=== PATIENT | female | born 1950 | race Caucasian/White ===

== ENCOUNTER 2019-10-12 12:32 | Outpatient (RCR) | payer OTHER, SELFPAY | END 2020-01-04 12:33 | disposition home or self-care (01) | LOC: CHSSENLIFE 12:32 | PROVIDERS: PCP Internal Medicine; Visit Provider Psychiatry & Neurology Psychiatry | DX: F41.9 Anxiety disorder, unspecified (principal); F01.50 Vascular dementia, unspecified severity, without behavioral disturbance, psychotic disturbance, mood disturbance, and anxiety | CPT/HCPCS: 90832; 90834; 99213; 99214; G0463 ==

== ENCOUNTER 2021-06-12 08:51 | Outpatient (CLI) | payer MEDICARE, SELFPAY ==
--- NOTE | ~2021-06-12 | MMUS_ITS ---
EXAMINATION: MM diagnostic mel BI w dalton, US breast LT limited, US breast RT complete HISTORY: Probable breast abnormalities. TECHNIQUE: Additional 3-D tomosynthesis images of the breasts were performed and synthetic 2-D images were generated. CAD analysis was submitted and interpreted. High resolution bilateral breast ultraso und was performed. COMPARISON: Comparison to multiple prior studies sequentially, with oldest reviewed study dated 08/22. BREAST PARENCHYMAL COMPOSITION: Breast composed of scattered areas of fibroglandular density. FINDINGS: MAMMOGRAPHIC FINDINGS: There are developing nodular asymmetries in the periareolar aspect of both breasts. There are no susp icious calcifications. No discrete abnormality is identified in the area palpable concern in the left breast. ULTRASOUND: Right breast ultrasound: At 12:00, 6 cm from the nipple, there is a slightly irregular shaped [address] This may represent a cluster of microcysts. No internal vascularity. There is posterior acoustic enhancement. At 10:00, 5 cm from the nipple, there is a 2 mm cyst. At 11:00, 4 cm from the nipple, th ere is a heterogeneous hypoechoic area with associated prominent ducts. No discrete mass identified. There is mixed posterior attenuation. This likely represents normal anatomic variant. Left breast ultrasound : At 12:00, 4 cm from the nipple in the area of palpable concern there is a 4 mm complicated cyst. In the periareolar location at 8:00 there is a 3 mm intramammary lymph node. No sonographic evidence for malignancy in the left breast. IMPRESSION: 1. Probable benign findings of the right breast. No mammographic or sonographic evidence for malignan cy in the left breast. 2. Recommend 6 month follow-up diagnostic right mammogram and ultrasound BI-RADS category 3, probably benign findings. Reviewed, dictated and finalized at location A. IMPRESSION: 1. Probable benign findings of the right breast. No mammographic or sonographic evidence for malignancy in the left breast. 2. Recommend 6 month follow-up diagnostic right mammogram and ultrasound BI-RADS category 3, probably benign findings. IMPRESSION: 1. Probable benign findings of the right breast. No mammographic or sonographic evidence for malignancy in the left breast. 2. Recommend 6 month follow-up diagnostic right mammogram and ultrasound BI-RADS category 3, probably benign findings.
== END 2021-06-12 08:52 | disposition home or self-care (01) ==
LOC: CHSIMG 08:58
PROVIDERS: PCP Internal Medicine; Visit Provider Nurse Practitioner Family
DX: N63.11 Unspecified lump in the right breast, upper outer quadrant (principal); N63.24 Unspecified lump in the left breast, lower inner quadrant; N63.25 Unspecified lump in the left breast, overlapping quadrants; N63.15 Unspecified lump in the right breast, overlapping quadrants
CPT/HCPCS: 76641; 76642; 77062; 77066; G0279

== ENCOUNTER 2022-03-04 13:38 | Outpatient (CLI) | payer MEDICARE, SELFPAY ==
--- NOTE | ~2022-03-04 | XR_ITS ---
EXAM: XR lumbar spine 2-3V HISTORY: LOW BACK PAIN after fall 2 days ago COMPARISON: 04/16/2017 FINDINGS: 5 nonrib-bearing lumbar-type vertebral bodies. Pedicles are intact. Multilevel disc space narrowing and marginal osteophytosis. Multilevel facet hypertrophy. Abdominal aortic calcification wi thout aneurysm. Cholecystectomy clips. Multiple phleboliths. Vertebral body heights are maintained. IMPRESSION: Multilevel lumbar degenerative disc disease. Multilevel lumbar facet arthropathy. Reviewed, dictated and finalized at location K. IMPRESSION: Multilevel lumbar degenerative disc disease. Multilevel lumbar facet arthropath y.
--- NOTE | ~2022-03-04 | XR_ITS ---
EXAM: XR sacrum coccyx min 2V HISTORY: LOW BACK PAIN COMPARISON: None available FINDINGS: Moderate lower lumbar degenerative changes. Minimal sclerosis and osteophytosis in the josafat ateral SI joints. Mild bilateral superior hip joint space narrowing. Degenerative change at the pubic symphysis. No fracture or dislocation. Multiple pelvic phleboliths. Likely calcified diverticuli. IMPRESSION: Mild bilateral SI joint osteoarthritis. Reviewed, dictated and finalized at location K.
== END 2022-03-04 13:39 | disposition home or self-care (01) ==
LOC: CHSIMG 13:41
PROVIDERS: PCP Internal Medicine; Visit Provider Internal Medicine
DX: M54.50 Low back pain, unspecified (principal)
CPT/HCPCS: 72100; 72220

== ENCOUNTER 2022-03-26 08:51 | Outpatient (CLI) | payer MEDICARE, SELFPAY ==
--- NOTE | ~2022-03-26 | MMUS_ITS ---
EXAMINATION: MM diagnostic mel RT w dalton, US breast RT limited HISTORY: Six-month follow-up of probable right breast benign findings reported on 06/12/2021 diagnosti c mammography and right complete breast ultrasound examination TECHNIQUE: ML, MLO and CC 3-D tomosynthesis images of the right breast were performed and synthetic 2 -D images were generated. CAD analysis was submitted and interpreted. High resolution limited right b reast ultrasound including upper outer and lower-outer quadrants was performed. COMPARISON: 06/12/2021 bilateral diagnostic mammography and complete right breast ultrasound BREAST PARENCHYMAL COMPOSITION: There are scattered areas of fibroglandular density. FINDINGS: MAMMOGRAPHIC FINDINGS: No suspicious mass or architectural distortion, malignant calcification, skin thickening or retractio n is evident. ULTRASOUND: No suspicious mass or shadowing or other significant abnormality is detected. IMPRESSION: 1. No mammographic evidence of malignancy 2. Routine annual mammographic screening is recommended BI-RADS Category 1: Negative Reviewed, dictated and finalized at location A. IMPRESSION: 1. No mammographic evidence of malignancy 2. Routine annual mammographic screening is recommended BI-RADS Category 1: Negative
== END 2022-03-26 08:52 | disposition home or self-care (01) ==
LOC: CHSIMG 08:52
PROVIDERS: PCP Internal Medicine; Visit Provider Internal Medicine
DX: R92.8 Other abnormal and inconclusive findings on diagnostic imaging of breast (principal)
CPT/HCPCS: 76642; 77061; 77065; G0279

== ENCOUNTER 2022-07-28 11:07 | Outpatient (CLI) | payer MEDICARE, SELFPAY ==
[2022-07-28 12:13] LABS: Anion Gap 6 mmol/L (8-16); Blood Urea Nitrogen 12 mg/dL (7-18); Calcium 8.9 mg/dL (8.5-10.1); Carbon Dioxide 29 mmol/L (21-32); Chloride 96 mmol/L (98-108); Creatine Kinase 51 U/L (26-192); Estimated Glomerular Filt Rate > 60; Free T4 Free Thyroxine 1.16 ng/dL (0.76-1.46); Glucose 216 mg/dL (70-99); NT Pro B Type Natriuretic Pept 87 pg/mL (0-125); Osmolality Calculated 278 mOsm/kg (285-295); Potassium 4.2 mmol/L (3.5-5.1); Sodium 131 mmol/L (136-145); Thyroid Stimulating Hormone 1.56 uIU/mL (0.36-3.74); Troponin I 8.5 ng/L (0.00-60.4)
== END 2022-07-28 11:08 | disposition home or self-care (01) ==
LOC: CHSLAB 11:10
PROVIDERS: PCP Internal Medicine; Visit Provider Internal Medicine
DX: R01.1 Cardiac murmur, unspecified (principal); I10 Essential (primary) hypertension; I50.20 Unspecified systolic (congestive) heart failure
CPT/HCPCS: 36415; 80048; 82550; 82553; 83880; 84439; 84443; 84484

== ENCOUNTER 2022-10-26 10:04 | Outpatient (CLI) | payer MEDICARE, SELFPAY ==
--- NOTE | ~2022-10-26 | XR_ITS ---
EXAMINATION: XR hand RT min 3V, XR wrist RT min 3V DATE: 10/26/2022 10:23 INDICATION: Right hand and wrist pain, bruising and stiffness TECHNIQUE: 1. Posteroanterior, ulnar deviation, oblique, and lateral views of the right wrist were obtained. 2. Dorsal palmar, oblique and lateral views of the right hand were obtained. COMPARISON: None. FINDINGS: Diffuse osteopenia. Alignment of the right hand and wrist are normal. No fracture identified. 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 Polyarticular osteoarthritis, superior at the second and fifth proxim al interphalangeal joints, moderate severity at the remaining interphalangeal joints and first carpal metacarpal joint and mild at majority the remaining joints in the right hand and wrist. No erosions to suggest inflammatory arthritis. Mild soft tissue swelling about the right hand and wrist. IMPRESSION: 1. No acute osseous abnormality at the right hand or wrist. 2. Polyarticular osteoarthritis at the right hand and wrist, moderate to severe at the interphalangea l joints. Reviewed, dictated and finalized at location A. HAND IMPRESSION: 1. No acute osseous abnormality at the right hand or wrist. 2. Polyarticular osteoarthritis at the right hand and wrist, moderate to severe at the interphalangeal joints.
== END 2022-10-26 10:05 | disposition home or self-care (01) ==
LOC: CHSIMG 10:06
PROVIDERS: PCP Internal Medicine; Visit Provider Internal Medicine
DX: M25.531 Pain in right wrist (principal)
CPT/HCPCS: 73110; 73130

== ENCOUNTER 2025-02-02 04:40 | Emergency (ER) | payer MEDICARE, SELFPAY ==
[2025-02-02] VITALS (46 sets, daily range): BP systolic 102–144; BP diastolic 58–86; PULSE 98–120; RESP 17–31; TEMP 36.6; O2SAT 87–97
--- NOTE | ~2025-02-02 | XR_ITS ---
Portable chest x-ray Comparison: 05/08/2019 Clinical History: Dyspnea Findings: There is extensive hazy bibasilar and perihilar airspace disease. No definite pleural effu vale. Cardiomediastinal silhouette is stable. Bones and soft tissues are unremarkable. Impression: Mild to moderate bibasilar pulmonary edema pattern. Reviewed, dictated and finalized at [facility]. Impression: Mild to moderate bibasilar pulmonary edema pattern.
--- OUTSIDE RECORDS SUMMARY | 2025-02-02 04:41 | XMS_ITS | Clinical Summary ---
Author Organization [facility] Address [address] [place] [address] Care Team Providers Care Lawyer Name Role Phone Nona Núñez MD Primary Care Provider [phone] Seth Frances MD Unavailable Unavailabl e Allergies Active Allergy Reactions Criticality Noted Date Comments Protective Adhesive Powder Unknown 06/15/2016 Ampicillin Hives,Rash Low 07/24/2016 Meperidine Unknown 06/15/2016 Bugs climbing on her Diazepam Diarrhea,Nausea Only,Vomiting 07/24/2016 Penicillins Unknown 06/15/2016 Tape Unknown 07/24/2016 Medications atorvastatin 80 MG tablet Take 80 mg by mouth daily. Active metFORMIN 500 MG tablet Take 1,000 mg by mouth 2 (two) times daily with meals. Active lorazepam 1 MG tablet Take 1 mg by mouth nightly at bedtime. Active glipiZIDE 10 MG tablet Take 10 mg by mouth 2 (two) times daily before meals. Active lisinopril 40 MG tablet Take 40 mg by mouth daily. Active pantoprazole 40 MG tablet Take 40 mg by mouth daily. Active escitalopram 10 MG tablet Take 5 mg by mouth daily. Active duloxetine (CYMBALTA) 30 MG capsule Active Cholecalciferol (VITAMIN D3) 1000 UNIT Tab Active gabapentin 300 MG capsule 3 times daily. Active atorvastatin (LIPITOR) 40 MG tablet Active aspirin EC (ASPIRIN) 81 MG EC tablet Active topiramate (TOPAMAX) 50 MG Tab 2 times daily. Active ropinirole 1 MG tablet Active traMADol 50 MG tablet 2 times daily. Active Magnesium Gluconate 500 MG Tab Take 500 mg by mouth 3 (three) times daily. 240 tablet 3 09/10/2016 Active nebivolol 5 MG tablet Take 1 tablet (5 mg total) by mouth daily. 30 tablet 12 10/23/2016 Active Active Problems Problem Noted Date Diagnosed Date Chest pain, atypical 08/22/2016 Dyspnea, unspecified type 08/22/2016 Abnormal EKG 08/22/2016 Pain in joint 07/24/2016 Clinical depression 07/24/2016 Headache 07/24/2016 Common migraine with intractable migraine 2015 Muscle pain 07/24/2016 Head revolving around 07/24/2016 Fibromyalgia 09/26/2015 Arthritis Family History Medical History Relation Comments Open Heart Brother Open Heart Father Open Heart Sister Relation Status Comments Brother Father Sister Social History Tobacco Use Types Packs/Day Years Used Date Smoking Tobacco: Never Alcohol Use Standard Drinks/Week Comments No 0 (1 standard drink = 0.6 oz pur e alcohol) Comments Unknown Sex and Gender Information Value Date Recorded Sex Assigned at Not on file Legal Sex Female 9:27 AM CDT Gender Identity Not on file Sexual Orientation Not on file Last Filed Vital Signs Vital Sign Reading Time Taken Comments Blood Pressure 160/100 07/24/2016 11:08 AM CDT Pulse 88 07/24/2016 11:08 AM CDT Temperature - - Respiratory Rate 18 07/24/2016 11:08 AM CDT Oxygen Saturation 96% 07/24/2016 11:08 AM CDT Inhaled Oxygen Concentration - - Weight 93 kg (205 lb) 07/24/2016 11:08 AM CDT Height 167.6 cm (5' 6 ) 07/24/2016 11:08 AM CDT Body Mass Index 33.09 07/24/2016 11:08 AM CDT Plan of Treatment Health Maintenance Due Date Last Done Comments Colorectal Cancer Screening Colonoscopy (10 Years) 1950 Hepatitis C 1967 DTaP, Tdap and Td Vaccines ( 1 - Tdap) 1968 Zoster Vaccines (1 of 2) 1999 Annual Medicare Wellness Visit 2014 Dexa Scan (General) 2014 Pneumococcal Vaccine: 65+ Ye ars (1 of 1 - PCV) 2014 RSV Immunization or 60+ Years (1 - 1-dose 75+ series) 2024 COVID-19 Vaccine ( - 2023-2 5 season) 2024 Influenza Adult (#1) 2024 Meningococcal B Vaccine Aged Out No l onger eligible based on patient's age to complete this topic Meningococcal Vaccine Aged Out No van jean eligible based on patient's age to complete this topic RSV Immunizations Under 20 Months Aged Out No longer eligible based on patient's age to complete this topic Insurance [employer] Care Teams Lawyer Relationship Specialty Start Date End Date Nona Núñez MD [address] [place] [address] PCP - General INTERNAL MEDICINE 07/23/16 Seth Frances MD [address] [place] [address] CARDIOVASCULAR DISEASE 07/23/16
--- OUTSIDE RECORDS SUMMARY | 2025-02-02 04:41 | XMS_ITS | Encounter Summary ---
Author Organization [facility] Address Formerly [facility] [place] [address] Care Team Providers Care Pilling Machine Operator Name Role Phone Nona Núñez MD Primary Care Provider [phone] Seth Frances MD Unavailable Unavailabl e Encounter Details Date Type Department Care Team (Late st Contact Info) Description 06/15/2016 Abstract [facility] [address] [place] [id number] Abstract, Doc [facility] Social History Tobacco Use Types Packs/Day Years Used Date Smoking Tobacco: Never Comments Unknown Sex and Gender Information Value Date Recorded Sex Assigned at Not on file Legal Sex Female 9:27 AM CDT Gender Identity Not on file Sexual Orientation Not on file documented as of this encounter Plan of Treatment Not on file documented as of this encounter Visit Diagnoses Not on filedocumented in this encounter Care Teams Pilling Machine Operator Relationship Specialty Start Date End Date Nona Núñez MD [address] [place] [address] PCP - General INTERNAL MEDICINE 07/23/16 Seth Frances MD [address] [place] [address] CARDIOVASCULAR DISEASE 07/23/16 documented as of this encounter
--- NOTE | 2025-02-02 04:59 | ECG_ITS ---
Test Date: 2025-02-02 05:24:01 Measurements Intervals [place] Rate: 114 P: 249 WV: 131 QRS: -25 QRSD: 149 T: 76 QT: 385 QTc: 532 Interpretive Statements SINUS TACHYCARDIA WITH FIRST DEGREE AV BLOCK LEFT BUNDLE BRANCH BLOCK [120+ ms QRS DURATION, 80+ ms Q/S IN V1/V2, 85+ ms R IN I/aVL/V5/V6] No previous ECG available for comparison Electronically Signed On 02-02-2025 16:29:55 CDT by Siddharth Fall M.D.
[2025-02-02] MEDS: LEVALBUTEROL NEB 1.25 MG/3 ML 2.5 MG INHALATION (05:08)
--- NOTE | 2025-02-02 05:11 | ED.SOB ---
HPI - SOB/Dyspnea General Chief Complaint: Shortness of Breath/Dyspnea <Robert Mart MD - Last Filed: 02/02/25 05:14> Stated Complaint: DYSPNEA <Robert Mart MD - Last Filed: 02/02/25 05:14> Time Seen by Provider: 02/02/25 04:53 <Robert Mart MD - Last Filed: 02/02/25 05:14> Source: patient, family and EMS <Robert Mart MD - Last Filed: 02/02/25 05:14> Mode of arrival: EMS <Robert Mart MD - Last Filed: 02/02/25 05:14> Limitations: physical limitation <Robert Mart MD - Last Filed: 02/02/25 05:14> History of Present Illness HPI Narrative: this is 74-year-old female with a history of diabetes hypertension hyperlipidemia presents via EMS with shortness of breath cough congestion started yesterday but had gotten worse over the last couple of hours. Patient was given breathing treatment by EMS EN route to the emergency department had O2 saturations in the upper 80s. Currently there is no fever chills no nausea vomiting no abdominal pain or chest pain no flank pain or dysuria. <Robert Mart MD - Last Filed: 02/02/25 05:14> MD elicited complaint: shortness of breath and cough <Robert Mart MD - Last Filed: 02/02/25 05:14> Onset (ago): day(s) <Robert Mart MD - Last Filed: 02/02/25 05:14> Timing: constant <Robert Mart MD - Last Filed: 02/02/25 05:14> Severity: moderate <Robert Mart MD - Last Filed: 02/02/25 05:14> Exacerbating factors: coughing and stress <Robert Mart MD - Last Filed: 02/02/25 05:14> Relieving factors: oxygen and bronchodilators <Robert Mart MD - Last Filed: 02/02/25 05:14> Related Data Home Medications: Home Medications ?Medication ?Instructions ?Recorded ?Confirmed ?Last Taken ?Type blood sugar diagnostic (Accu-Chek #10 ea 10/05/19 Unknown History Guide test strips) blood-glucose meter (Accu-Chek #1 ea 10/05/19 Unknown History Guide Me Glucose Meter) lancets (Accu-Chek Softclix #50 ea 10/05/19 Unknown History Lancets) metformin 500 mg tablet 500 mg PO BID 10/05/19 02/02/25 Unknown History amlodipine 10 mg tablet 10 mg PO DAILY 02/02/25 02/02/25 Unknown History atorvastatin 40 mg tablet 40 mg PO QPM 02/02/25 02/02/25 Unknown History buspirone 10 mg tablet 10 mg PO BID 02/02/25 02/02/25 Unknown History escitalopram oxalate 10 mg tablet 10 mg PO DAILY 02/02/25 02/02/25 Unknown History glimepiride 1 mg tablet 1 mg PO DAILY 02/02/25 02/02/25 Unknown History lisinopril 20 mg tablet 20 mg PO DAILY 02/02/25 02/02/25 Unknown History memantine 5 mg tablet 5 mg PO BID 02/02/25 02/02/25 Unknown History sodium chloride 1,000 mg soluble 1,000 mg PO DAILY 02/02/25 02/02/25 Unknown History tablet <Robert Mart MD - Last Filed: 02/02/25 05:14> Allergies/Adverse Reactions: Allergies Allergy/AdvReac Type Severity Reaction Status Date / Time adhesive tape Allergy Unknown BLISTERS Verified 02/02/25 06:32 ampicillin Allergy Unknown rash Verified 02/02/25 06:32 diazepam Allergy Unknown rash Verified 02/02/25 06:32 meperidine Allergy Unknown GI upset Verified 02/02/25 06:32 Penicillins Allergy Unknown rash Verified 02/02/25 06:32 Contrast Media Allergy Unknown unknown Uncoded 02/02/25 06:32 <Robert Mart MD - Last Filed: 02/02/25 05:14> Review of Systems Review of Systems: All systems reviewed & are unremarkable except as noted in HPI and below <Robert Mart MD - Last Filed: 02/02/25 05:14> PMFSH Past Medical History Medical History: Medical History (Updated 02/02/25 @ 10:44 by Brian Cedillo MD) High cholesterol HTN (hypertension) History of seizure only one time Depression Diabetes Injury of toenail Third degree hemorrhoids <Robert Mart MD - Last Filed: 02/02/25 05:14> Surgical History Surgical History: Surgical History Hx of cholecystectomy History of knee joint replacement H/O neck surgery H/O rotator cuff surgery History of carpal tunnel surgery History of hysterectomy <Robert Mart MD - Last Filed: 02/02/25 05:14> Family History Family History: Family History Sibling Hypertension Family history of elevated blood lipids Family history of cardiovascular disease Father Family history of cardiovascular disease Mother Family history of Alzheimer's disease Other Cerebrovascular accident Diabetes mellitus Family history of kidney disease Family history of malignant neoplasm <Robert Mart MD - Last Filed: 02/02/25 05:14> Social History Social History: Social History Smoking status: Never smoker Alcohol intake: never <Robert Mart MD - Last Filed: 02/02/25 05:14> Exam Const: General: healthy appearing and no acute distress <Robert Mart MD - Last Filed: 02/02/25 05:14> Nutritional Appearance: well nourished <Robert Mart MD - Last Filed: 02/02/25 05:14> Orientation/consciousness: patient oriented x3 <Robert Mart MD - Last Filed: 02/02/25 05:14> Limitations: physical limitations <Robert Mart MD - Last Filed: 02/02/25 05:14> Neck: Neck: normal visual inspection, no lymphadenopathy and no meningeal signs <Robert Mart MD - Last Filed: 02/02/25 05:14> Chest: Chest palpation & inspection: normal inspection of the chest <Robert Mart MD - Last Filed: 02/02/25 05:14> Resp: Effort & Inspection: normal respiratory effort <Robert Mart MD - Last Filed: 02/02/25 05:14> Auscultation: rhonchi <Robert Mart MD - Last Filed: 02/02/25 05:14> Cardio: Rate: regular rate <Robert Mart MD - Last Filed: 02/02/25 05:14> Rhythm: regular rhythm <Robert Mart MD - Last Filed: 02/02/25 05:14> GI: GI Palp: Yes Soft to palpation <Robert Mart MD - Last Filed: 02/02/25 05:14> Auscultation: normal bowel sounds <Robert Mart MD - Last Filed: 02/02/25 05:14> : General: Yes bladder normal to palpation <Robert Mart MD - Last Filed: 02/02/25 05:14> Skin: General skin exam: normal color <Robert Mart MD - Last Filed: 02/02/25 05:14> Rashes: no rashes <Robert Mart MD - Last Filed: 02/02/25 05:14> Neuro: General: patient oriented x3, moves all extremities, no meningeal signs and no focal motor deficits <Robert Mart MD - Last Filed: 02/02/25 05:14> Course Course Emergency Course: Patient received breathing treatments EN route via EMS, O2 sats at 93% on 4L of oxygen, additional Xopenex neb treatment given. <Robert Mart MD - Last Filed: 02/02/25 05:14> Patient received breathing treatments EN route via EMS, O2 sats at 93% on 4L of oxygen, additional Xopenex neb treatment given. 07:00 (MD Mamadou) - This patient was signed out to me by previous ED physician, Dr. Mart with plan for repeat troponin and anticipated transfer. 09:30 - Repeat troponin increased from 54-98.9. The patient denies chest pain. 10:20 - I discussed the patient with [facility] hospitalist, Dr. Matos who accepts transfer. The patient is agreeable to the plan. 10:43 - I discussed the patient with Cardiology [employer] Kaitlyn who agrees to consult. <Brian Cedillo MD - Last Filed: 02/02/25 11:36> Vital Signs Vital signs: Vital Signs Temperature 97.8 F 02/02/25 04:45 Pulse Rate 109 H 02/02/25 04:45 Respiratory Rate 30 H 02/02/25 04:45 Blood Pressure 130/65 02/02/25 04:45 Pulse Oximetry 87 L 02/02/25 04:45 Oxygen Delivery Room Air 02/02/25 04:45 Oxygen Flow Rate 4 02/02/25 04:45 Temperature 97.8 F 02/02/25 04:45 Pulse Rate 109 H 02/02/25 11:01 Respiratory Rate 27 H 02/02/25 11:01 Blood Pressure 144/86 H 02/02/25 11:00 Pulse Oximetry 95 02/02/25 11:01 Oxygen Delivery Nasal Cannula 02/02/25 11:00 Oxygen Flow Rate 3 02/02/25 11:00 <Robert Mart MD - Last Filed: 02/02/25 05:14> Vital Signs Temperature 97.8 F 02/02/25 04:45 Pulse Rate 109 H 02/02/25 04:45 Respiratory Rate 30 H 02/02/25 04:45 Blood Pressure 130/65 02/02/25 04:45 Pulse Oximetry 87 L 02/02/25 04:45 Oxygen Delivery Room Air 02/02/25 04:45 Oxygen Flow Rate 4 02/02/25 04:45 Temperature 97.8 F 02/02/25 04:45 Pulse Rate 109 H 02/02/25 11:01 Respiratory Rate 27 H 02/02/25 11:01 Blood Pressure 144/86 H 02/02/25 11:00 Pulse Oximetry 95 02/02/25 11:01 Oxygen Delivery Nasal Cannula 02/02/25 11:00 Oxygen Flow Rate 3 02/02/25 11:00 <Brian Cedillo MD - Last Filed: 02/02/25 11:36> MDM - SOB/Dyspnea Lab Data Result diagrams: 02/02/25 05:30 02/02/25 05:30 <Robert Mart MD - Last Filed: 02/02/25 05:14> Labs: Lab Results 02/02/25 02/02/25 02/02/25 Range/Units 04:55 05:30 06:45 WBC 16.0 H (4.8-10.8) K/mm3 RBC 4.42 (4.20-5.40) M/mm3 Hgb 12.3 (11.7-13.8) g/dL Hct 37.6 (35.0-42.0) % MCV 85.1 (78.0-102.0) fL MCH 27.8 (27.0-31.0) pg MCHC 32.7 (32-36) g/dL RDW 13.7 (11.6-14.4) % Plt Count 341 (150-420) K/mm3 MPV 9.7 (9.2-11.8) fl Immature Gran % (Auto) 0.4 H (0.0-0.0) % Neut % (Auto) 90.0 H (50.0-70.0) % Lymph % (Auto) 5.6 L (18.0-42.0) % Cannon % (Auto) 2.9 (2.0-11.0) % Eos % (Auto) 0.5 L (1.0-6.0) % Baso % (Auto) 0.6 (0.0-1.0) % Lymph # (Auto) 0.89 L (1.10-4.50) K/mm3 Cannon # (Auto) 0.47 (0.10-0.90) K/mm3 Eos # (Auto) 0.08 (0.02-0.50) K/mm3 Baso # (Auto) 0.09 (0.00-0.10) K/mm3 Abs Immat Gran (auto) 0.06 H (0.00-0.00) K/mm3 Absolute Neuts (auto) 14.40 H (1.70-7.20) K/mm3 Absolute Nucleated RBC 0.00 (0.00-0.00) K/mm3 Nucleated RBC % 0.0 (0-0.0) % PT 9.9 (9.50-12.1) Seconds INR 0.9 APTT 23.6 L (23.9-30.70) Sec D-Dimer 1.93 H* (0.19-0.50) mg/L Sodium 128 L (136-145) mmol/L Potassium 3.9 (3.5-5.1) mmol/L Chloride 91 L (98-108) mmol/L Carbon Dioxide 23 (21-32) mmol/L Anion Gap 14 H (4-12) mmol/L BUN 11 (7-18) mg/dL Creatinine 0.82 (0.55-1.02) mg/dL Estim Creat Clear Calc 48 ml/min Estimated GFR > 60 (59 - ) Glucose 235 H (70-99) mg/dL Calculated Osmolality 273 L (285-295) mOsm/kg Lactic Acid 1.3 (0.4-2.0) mmol/L Calcium 8.7 (8.5-10.1) mg/dL Magnesium 1.7 L (1.8-2.4) mg/dL Total Bilirubin 0.6 (0.00-1.00) mg/dL AST 14 L (15-37) U/L ALT 14 (14-59) U/L Alkaline Phosphatase 133 H (46-116) U/L Troponin I 53.4 (0.00-60.4) ng/L NT-Pro-B Natriuret Pep 5009 H (0-450) pg/mL Total Protein 6.7 (6.4-8.2) g/dL Albumin 3.7 (3.4-5.0) g/dL Urine Color Light yellow (Yellow) Urine Appearance Clear (Clear) Urine pH 5.5 (5.0-8.0) Ur Specific [place] 1.025 H (1.010-1.020) Urine Protein 1+ H (Negative) Urine Glucose (UA) Trace H (Negative) Urine Ketones 1+ H (Negative) Ur Blood (Man) Negative (Negative) Urine Nitrate Negative (Negative) Urine Bilirubin Negative (Negative) Urine Urobilinogen 0.2 (0.2-1.0) mg/dL Leukocyte Esterase Rfl Negative (Negative) PADMINI/UL Urine RBC None seen (0-2) /hpf Urine WBC None seen (0-3) /hpf Ur Squamous Epith Cells Few (Few) /hpf Urine Bacteria Trace (None) /hpf Influenza A (RT-PCR) Negative (Negative) Influenza B (RT-PCR) Negative (Negative) RSV (RT-PCR) Negative (Negative) SARS-CoV-2 RNA (RT-PCR) Negative (Negative) 02/02/25 Range/Units 08:51 WBC (4.8-10.8) K/mm3 RBC (4.20-5.40) M/mm3 Hgb (11.7-13.8) g/dL Hct (35.0-42.0) % MCV (78.0-102.0) fL MCH (27.0-31.0) pg MCHC (32-36) g/dL RDW (11.6-14.4) % Plt Count (150-420) K/mm3 MPV (9.2-11.8) fl Immature Gran % (Auto) (0.0-0.0) % Neut % (Auto) (50.0-70.0) % Lymph % (Auto) (18.0-42.0) % Cannon % (Auto) (2.0-11.0) % Eos % (Auto) (1.0-6.0) % Baso % (Auto) (0.0-1.0) % Lymph # (Auto) (1.10-4.50) K/mm3 Cannon # (Auto) (0.10-0.90) K/mm3 Eos # (Auto) (0.02-0.50) K/mm3 Baso # (Auto) (0.00-0.10) K/mm3 Abs Immat Gran (auto) (0.00-0.00) K/mm3 Absolute Neuts (auto) (1.70-7.20) K/mm3 Absolute Nucleated RBC (0.00-0.00) K/mm3 Nucleated RBC % (0-0.0) % PT (9.50-12.1) Seconds INR APTT (23.9-30.70) Sec D-Dimer (0.19-0.50) mg/L Sodium (136-145) mmol/L Potassium (3.5-5.1) mmol/L Chloride (98-108) mmol/L Carbon Dioxide (21-32) mmol/L Anion Gap (4-12) mmol/L BUN (7-18) mg/dL Creatinine (0.55-1.02) mg/dL Estim Creat Clear Calc ml/min Estimated GFR (59 - ) Glucose (70-99) mg/dL Calculated Osmolality (285-295) mOsm/kg Lactic Acid (0.4-2.0) mmol/L Calcium (8.5-10.1) mg/dL Magnesium (1.8-2.4) mg/dL Total Bilirubin (0.00-1.00) mg/dL AST (15-37) U/L ALT (14-59) U/L Alkaline Phosphatase (46-116) U/L Troponin I 98.9 H* (0.00-60.4) ng/L NT-Pro-B Natriuret Pep (0-450) pg/mL Total Protein (6.4-8.2) g/dL Albumin (3.4-5.0) g/dL Urine Color (Yellow) Urine Appearance (Clear) Urine pH (5.0-8.0) Ur Specific [place] (1.010-1.020) Urine Protein (Negative) Urine Glucose (UA) (Negative) Urine Ketones (Negative) Ur Blood (Man) (Negative) Urine Nitrate (Negative) Urine Bilirubin (Negative) Urine Urobilinogen (0.2-1.0) mg/dL Leukocyte Esterase Rfl (Negative) PADMINI/UL Urine RBC (0-2) /hpf Urine WBC (0-3) /hpf Ur Squamous Epith Cells (Few) /hpf Urine Bacteria (None) /hpf Influenza A (RT-PCR) (Negative) Influenza B (RT-PCR) (Negative) RSV (RT-PCR) (Negative) SARS-CoV-2 RNA (RT-PCR) (Negative) <Robert Mart MD - Last Filed: 02/02/25 05:14> Lab Results 02/02/25 02/02/25 02/02/25 Range/Units 04:55 05:30 06:45 WBC 16.0 H (4.8-10.8) K/mm3 RBC 4.42 (4.20-5.40) M/mm3 Hgb 12.3 (11.7-13.8) g/dL Hct 37.6 (35.0-42.0) % MCV 85.1 (78.0-102.0) fL MCH 27.8 (27.0-31.0) pg MCHC 32.7 (32-36) g/dL RDW 13.7 (11.6-14.4) % Plt Count 341 (150-420) K/mm3 MPV 9.7 (9.2-11.8) fl Immature Gran % (Auto) 0.4 H (0.0-0.0) % Neut % (Auto) 90.0 H (50.0-70.0) % Lymph % (Auto) 5.6 L (18.0-42.0) % Cannon % (Auto) 2.9 (2.0-11.0) % Eos % (Auto) 0.5 L (1.0-6.0) % Baso % (Auto) 0.6 (0.0-1.0) % Lymph # (Auto) 0.89 L (1.10-4.50) K/mm3 Cannon # (Auto) 0.47 (0.10-0.90) K/mm3 Eos # (Auto) 0.08 (0.02-0.50) K/mm3 Baso # (Auto) 0.09 (0.00-0.10) K/mm3 Abs Immat Gran (auto) 0.06 H (0.00-0.00) K/mm3 Absolute Neuts (auto) 14.40 H (1.70-7.20) K/mm3 Absolute Nucleated RBC 0.00 (0.00-0.00) K/mm3 Nucleated RBC % 0.0 (0-0.0) % PT 9.9 (9.50-12.1) Seconds INR 0.9 APTT 23.6 L (23.9-30.70) Sec D-Dimer 1.93 H* (0.19-0.50) mg/L Sodium 128 L (136-145) mmol/L Potassium 3.9 (3.5-5.1) mmol/L Chloride 91 L (98-108) mmol/L Carbon Dioxide 23 (21-32) mmol/L Anion Gap 14 H (4-12) mmol/L BUN 11 (7-18) mg/dL Creatinine 0.82 (0.55-1.02) mg/dL Estim Creat Clear Calc 48 ml/min Estimated GFR > 60 (59 - ) Glucose 235 H (70-99) mg/dL Calculated Osmolality 273 L (285-295) mOsm/kg Lactic Acid 1.3 (0.4-2.0) mmol/L Calcium 8.7 (8.5-10.1) mg/dL Magnesium 1.7 L (1.8-2.4) mg/dL Total Bilirubin 0.6 (0.00-1.00) mg/dL AST 14 L (15-37) U/L ALT 14 (14-59) U/L Alkaline Phosphatase 133 H (46-116) U/L Troponin I 53.4 (0.00-60.4) ng/L NT-Pro-B Natriuret Pep 5009 H (0-450) pg/mL Total Protein 6.7 (6.4-8.2) g/dL Albumin 3.7 (3.4-5.0) g/dL Urine Color Light yellow (Yellow) Urine Appearance Clear (Clear) Urine pH 5.5 (5.0-8.0) Ur Specific [place] 1.025 H (1.010-1.020) Urine Protein 1+ H (Negative) Urine Glucose (UA) Trace H (Negative) Urine Ketones 1+ H (Negative) Ur Blood (Man) Negative (Negative) Urine Nitrate Negative (Negative) Urine Bilirubin Negative (Negative) Urine Urobilinogen 0.2 (0.2-1.0) mg/dL Leukocyte Esterase Rfl Negative (Negative) PADMINI/UL Urine RBC None seen (0-2) /hpf Urine WBC None seen (0-3) /hpf Ur Squamous Epith Cells Few (Few) /hpf Urine Bacteria Trace (None) /hpf Influenza A (RT-PCR) Negative (Negative) Influenza B (RT-PCR) Negative (Negative) RSV (RT-PCR) Negative (Negative) SARS-CoV-2 RNA (RT-PCR) Negative (Negative) 02/02/25 Range/Units 08:51 WBC (4.8-10.8) K/mm3 RBC (4.20-5.40) M/mm3 Hgb (11.7-13.8) g/dL Hct (35.0-42.0) % MCV (78.0-102.0) fL MCH (27.0-31.0) pg MCHC (32-36) g/dL RDW (11.6-14.4) % Plt Count (150-420) K/mm3 MPV (9.2-11.8) fl Immature Gran % (Auto) (0.0-0.0) % Neut % (Auto) (50.0-70.0) % Lymph % (Auto) (18.0-42.0) % Cannon % (Auto) (2.0-11.0) % Eos % (Auto) (1.0-6.0) % Baso % (Auto) (0.0-1.0) % Lymph # (Auto) (1.10-4.50) K/mm3 Cannon # (Auto) (0.10-0.90) K/mm3 Eos # (Auto) (0.02-0.50) K/mm3 Baso # (Auto) (0.00-0.10) K/mm3 Abs Immat Gran (auto) (0.00-0.00) K/mm3 Absolute Neuts (auto) (1.70-7.20) K/mm3 Absolute Nucleated RBC (0.00-0.00) K/mm3 Nucleated RBC % (0-0.0) % PT (9.50-12.1) Seconds INR APTT (23.9-30.70) Sec D-Dimer (0.19-0.50) mg/L Sodium (136-145) mmol/L Potassium (3.5-5.1) mmol/L Chloride (98-108) mmol/L Carbon Dioxide (21-32) mmol/L Anion Gap (4-12) mmol/L BUN (7-18) mg/dL Creatinine (0.55-1.02) mg/dL Estim Creat Clear Calc ml/min Estimated GFR (59 - ) Glucose (70-99) mg/dL Calculated Osmolality (285-295) mOsm/kg Lactic Acid (0.4-2.0) mmol/L Calcium (8.5-10.1) mg/dL Magnesium (1.8-2.4) mg/dL Total Bilirubin (0.00-1.00) mg/dL AST (15-37) U/L ALT (14-59) U/L Alkaline Phosphatase (46-116) U/L Troponin I 98.9 H* (0.00-60.4) ng/L NT-Pro-B Natriuret Pep (0-450) pg/mL Total Protein (6.4-8.2) g/dL Albumin (3.4-5.0) g/dL Urine Color (Yellow) Urine Appearance (Clear) Urine pH (5.0-8.0) Ur Specific [place] (1.010-1.020) Urine Protein (Negative) Urine Glucose (UA) (Negative) Urine Ketones (Negative) Ur Blood (Man) (Negative) Urine Nitrate (Negative) Urine Bilirubin (Negative) Urine Urobilinogen (0.2-1.0) mg/dL Leukocyte Esterase Rfl (Negative) PADMINI/UL Urine RBC (0-2) /hpf Urine WBC (0-3) /hpf Ur Squamous Epith Cells (Few) /hpf Urine Bacteria (None) /hpf Influenza A (RT-PCR) (Negative) Influenza B (RT-PCR) (Negative) RSV (RT-PCR) (Negative) SARS-CoV-2 RNA (RT-PCR) (Negative) <Brian Cedillo MD - Last Filed: 02/02/25 11:36> Critical Care Time Critical Care Time Critical Care Time: No <Robert Mart MD - Last Filed: 02/02/25 05:14> Discharge Plan Discharge Clinical Impression: Pulmonary edema, Elevated troponin, New onset of congestive heart failure <Robert Mart MD - Last Filed: 02/02/25 05:14> Patient Disposition: Acute [facility] <Robert Mart MD - Last Filed: 02/02/25 05:14> Condition: Serious <Robert Mart MD - Last Filed: 02/02/25 05:14> Patient Language: Iraqi <Robert Mart MD - Last Filed: 02/02/25 05:14> Prescriptions: No Action atorvastatin 40 mg tablet 40 mg PO QPM lisinopril 20 mg tablet 20 mg PO DAILY escitalopram oxalate 10 mg tablet 10 mg PO DAILY sodium chloride 1,000 mg tablet,soluble 1,000 mg PO DAILY buspirone 10 mg tablet 10 mg PO BID glimepiride 1 mg tablet 1 mg PO DAILY memantine 5 mg tablet 5 mg PO BID amlodipine 10 mg tablet 10 mg PO DAILY metformin 500 mg tablet 500 mg PO BID (DME) lancets [Accu-Chek Softclix Lancets] Misc See Rx Instructions .ROUTE .MEDSUPPLY Qty: 50 Rx Instructions: As directed (DME) Accu-Chek Guide test strips Strip See Rx Instructions .ROUTE .MEDSUPPLY Qty: 10 Rx Instructions: As directed (DME) blood-glucose meter [Accu-Chek Guide Me Glucose Mtr] Misc See Rx Instructions .ROUTE .MEDSUPPLY Qty: 1 Rx Instructions: As directed <Robert Mart MD - Last Filed: 02/02/25 05:14> Follow-up/Referrals: Nona Núñez MD [Primary Care Provider] - <Robert Mart MD - Last Filed: 02/02/25 05:14> Time of Disposition: 10:20 <Robert Mart MD - Last Filed: 02/02/25 05:14> 10:20 <Brian Cedillo MD - Last Filed: 02/02/25 11:36>
[2025-02-02 05:37] LABS: Basophils Absolute Auto 0.09 K/mm3 (0.00-0.10); Basophils Percent Auto 0.6 % (0.0-1.0); Eosinophils Absolute Auto 0.08 K/mm3 (0.02-0.50); Eosinophils Percent Auto 0.5 % (1.0-6.0); Hematocrit 37.6 % (35.0-42.0); Hemoglobin 12.3 g/dL (11.7-13.8); Immature Granulocyte Absolute 0.06 K/mm3 (0.00-0.00); Immature Granulocyte Percent A 0.4 % (0.0-0.0); Lymphocytes Absolute Auto 0.89 K/mm3 (1.10-4.50); Lymphocytes Percent Auto 5.6 % (18.0-42.0); Mean Corpuscular HGB Conc 32.7 g/dL (32-36); Mean Corpuscular Hemoglobin 27.8 pg (27.0-31.0); Mean Corpuscular Volume 85.1 fL (78.0-102.0); Mean Platelet Volume 9.7 fl (9.2-11.8); Monocytes Absolute Auto 0.47 K/mm3 (0.10-0.90); Monocytes Percent Auto 2.9 % (2.0-11.0); Platelet Count Result 341 K/mm3 (150-420); Red Blood Count 4.42 M/mm3 (4.20-5.40); Red Cell Distribution Width 13.7 % (11.6-14.4)
--- OUTSIDE RECORDS SUMMARY | 2025-02-02 05:46 | XMS_ITS | Clinical Summary ---
Author Organization [facility] Address [address] [place] [address] Care Team Providers Care Timber Framer Name Role Phone Nona Núñez MD Primary Care Provider [phone] Seth Frances MD Unavailable Unavailabl e Allergies [...] complete this topic Insurance [employer] Care Teams Timber Framer Relationship Specialty Start Date End Date Nona Núñez MD [address] [place] [address] PCP - General INTERNAL MEDICINE 07/23/16 Seth Frances MD [address] [place] [address] CARDIOVASCULAR DISEASE 07/23/16
--- OUTSIDE RECORDS SUMMARY | 2025-02-02 05:46 | XMS_ITS | Encounter Summary ---
Author Organization [facility] Address [facility] [place] [address] Care Team Providers Care Sewing Room Supervisor Name Role Phone Nona Núñez MD Primary Care Provider [phone] Steh Frances MD Unavailable Unavailabl e Encounter Details Date Type Department Care Team (Late st Contact Info) Description 06/15/2016 Abstract [facility] [address] [place] [phone] Abstract, Doc [facility] Social History Tobacco [...] on filedocumented in this encounter Care Teams Sewing Room Supervisor Relationship Specialty Start Date End Date Nona Núñez MD [address] [place] [address] PCP - General INTERNAL MEDICINE 07/23/16 Seth Frances MD [address] [place] [address] CARDIOVASCULAR DISEASE 07/23/16 documented as of this encounter
--- NOTE | 2025-02-02 05:58 | PC.NURSE ---
Pt resting, lights dimmed, informed on wait times for lab testing results. Continuing to monitor, family at bedside.
[2025-02-02 06:08] LABS: INR 0.9; Partial Thromboplastin Time 23.6 Sec (23.9-30.70); Prothrombin Time 9.9 Seconds (9.50-12.1)
[2025-02-02 06:09] LABS: D Dimer 1.93 mg/L (0.19-0.50)
[2025-02-02 06:12] LABS: Lactic Acid Reflex 1.3 mmol/L (0.4-2.0)
[2025-02-02 06:19] LABS: Alanine Aminotransferase 14 U/L (14-59); Albumin Level 3.7 g/dL (3.4-5.0); Alkaline Phosphatase 133 U/L (46-116); Anion Gap 14 mmol/L (4-12); Aspartate Amino Transferase 14 U/L (15-37); Bilirubin,Total 0.6 mg/dL (0.00-1.00); Blood Urea Nitrogen 11 mg/dL (7-18); Calcium 8.7 mg/dL (8.5-10.1); Carbon Dioxide 23 mmol/L (21-32); Chloride 91 mmol/L (98-108); Estimated CRCL calculation 48 ml/min; Estimated Glomerular Filt Rate > 60; Glucose 235 mg/dL (70-99); Magnesium 1.7 mg/dL (1.8-2.4); NT Pro B Type Natriuretic Pept 5009 pg/mL (0-450); Osmolality Calculated 273 mOsm/kg (285-295); Potassium 3.9 mmol/L (3.5-5.1); Sodium 128 mmol/L (136-145); Total Protein 6.7 g/dL (6.4-8.2); Troponin I 53.4 ng/L (0.00-60.4)
[2025-02-02 06:30] LABS: Influenza A QL RT-PCR Negative (Negative); Influenza B QL RT-PCR Negative (Negative); RSV RNA, RT-PCR Negative (Negative); SARS-CoV-2 RNA PCR Negative (Negative)
--- NOTE | 2025-02-02 06:52 | PC.NURSE ---
Pt continues to rest, assisted to BSC and obtained UA, assisted back to bed, continuing to monitor, ST on monitor and VSS. POC discussed w/ pt and family.
[2025-02-02 06:56] LABS: Add Urine Microscopic? YES; Appearance Urine Clear (Clear); Bilirubin Urine Negative (Negative); Blood Urine Negative (Negative); Color Urine Light Yellow (Yellow); Glucose Urine UA Trace (Negative); Ketones Urine 1+ (Negative); Leukocyte Esterase Ur Negative LEU/UL (Negative); Nitrate Urine Negative (Negative); Protein Urine 1+ (Negative); Specific Grav Ur 1.025 (1.010-1.020); Urobilinogen Urine 0.2 mg/dL (0.2-1.0); pH Urine 5.5 (5.0-8.0)
[2025-02-02 06:58] LABS: Bacteria Urine Trace /hpf; RBC Urine None seen /hpf (0-2); Squamous Epithelial Cell Urine Few /hpf (Few); WBC Urine None seen /hpf (0-3)
[2025-02-02 09:19] LABS: Troponin I 98.9 ng/L (0.00-60.4)
[2025-02-02] MEDS: FUROSEMIDE INJ 20 MG/2 ML VIAL IV PUSH (11:02)
--- NOTE | 2025-02-04 12:43 | PC.NURSE ---
PRELIMINARY BLOOD CULTURE NO GROWTH TO DATE
== END 2025-02-02 11:51 | disposition short-term general hospital (02) ==
PROVIDERS: Emergency Medicine; Emergency Provider Preventive Medicine Aerospace Medicine; PCP Internal Medicine
DX: I11.0 Hypertensive heart disease with heart failure (principal); I50.9 Heart failure, unspecified; J81.1 Chronic pulmonary edema; R79.89 Other specified abnormal findings of blood chemistry; E11.9 Type 2 diabetes mellitus without complications; E78.5 Hyperlipidemia, unspecified; Z79.899 Other long term (current) drug therapy; Z79.84 Long term (current) use of oral hypoglycemic drugs; Z20.822 Contact with and (suspected) exposure to COVID-19
CPT/HCPCS: 36415; 71045; 80053; 81001; 83605; 83735; 83880; 84484; 85025; 85380; 85610; 85730; 87040; 87637; 93005; 94640; 96374; 99285; J1940

== ENCOUNTER 2025-02-02 13:24 | Inpatient (IN) | payer MEDICARE, SELFPAY ==
[2025-02-02] VITALS (8 sets, daily range): BP systolic 122–130; BP diastolic 63–78; PULSE 103–117; RESP 14–18; TEMP 36.3–36.7; O2SAT 91–95; BMI 27.6
--- NOTE | 2025-02-02 | ECHO_ITS ---
Patient Info Name: Maranda Izquierdo Age: 74 years : 1950 Gender: Female Ht: 65 in Wt: 165 lbs BSA: 1.87 m2 HR: 97 bpm BP: 128 / 73 mmHg Technical Quality: Good Exam Date: 02/02/2025 2:10 PM Exam Location: Echo Lab Patient Status: Outpatient Admit Date: 02/02/2025 Staff Ordering Physician: Jess Hdz APRN Acls Specialist: Nata Mercado RDCS Attending Provider: Ena Matos MD Referring Physician: Andreina GE; Exam Type: CA echo doppler color flow Study Info Indications - Elevated BNP - Pulmonary edema - SOB Complete two-dimensional, color flow and Doppler transthoracic echocardiogram is performed. Summary 1. Complete two-dimensional, color flow and Doppler transthoracic echocardiogram is performed. Recommendations * Mild LV enlargement, normal wall thickness; moderate LV systolic dysfunction with LV dyssynchrony due to LBBB; ejection fraction calculated at 34%. Diastolic dysfunction with elevated left heart pressures. Normal RV size and systolic function. Moderate left atrial enlargement. Mild bowing of posterior mitral valve leaflet, moderate mitral regurgitation. All 3 cusps of aortic valve are not well visualized, appears moderately calcified;. Cannot rule out bicuspid aortic valve. Vmax 2.2 m/sec, mean gradient 13 mmHg, calculated ROBERT 1.4 cm2. Trivial TR, RVSP 35 mmHg. No significant pericardial effusion. Left Ventricle Left ventricular chamber dimension is mildly enlarged. Left ventricular systolic function is moderately reduced, estimated at 30-35%. There is no increased left ventricular wall thickness. The left ventricular diastolic function is abnormal. E/e' 21.0 is abnormal. Right Ventricle Right ventricular chamber dimension is normal. Right ventricular systolic function is normal. Left Atria Left atrial chamber dimension is moderately enlarged. Right Atria Right atrial chamber dimension is normal. Aortic Valve There is moderate aortic valve stenosis with a peak velocity of 222 cm/s, mean gradient of 13 mmHg, and aortic valve area of 1.1 cm2. There is moderate aortic valve calcification. Pulmonic Valve The pulmonic valve is normal. Mitral Valve The mitral valve has posterior prolapse. There is moderate mitral valve regurgitation. Tricuspid Valve The tricuspid valve leaflets are normal. There is trace tricuspid valve regurgitation. Pericardium/Pleural The pericardium appears normal. Aorta The aortic root size at the sinus of Valsalva is normal. Left Ventricular Outflow Tract Name Value Normal LVOT 2D LVOT Diameter 1.8 cm LVOT Doppler LVOT Peak Gradient 7 mmHg LVOT Mean Gradient 4 mmHg LVOT VTI 19 cm LVOT VTI/AV VTI Ratio 0.4 LVOT Stroke Volume 48 ml LVOT CO 13.4 l/min LVOT CI 7.2 l/min/m2 Pulmonic Valve Name Value Normal PV Doppler PV Peak Gradient 4 mmHg Mitral Valve Name Value Normal MV Doppler MV Decel Posey 1,462 cm/s2 MV PHT 33 ms MV Area (PHT) 6.6 cm2 4.0-5.0 MV Diastolic Function MV E Peak Velocity 169 cm/s MV A Peak Velocity 6 cm/s MV E/A 27.6 MV Decel Time 116 ms MV Annular TDI MV E/e' (Septal) 30.2 <=8.0 MV E/e' (Lateral) 11.9 <=8.0 MV E/e' (Average) 21.0 Tricuspid Valve Name Value Normal TV Regurgitation Doppler TR Peak Velocity 250 cm/s TR Peak Gradient 16 mmHg Estimated PAP/RSVP RA Pressure 10 mmHg <=5 PA Systolic Pressure 35 mmHg <36 RV Systolic Pressure 35 mmHg <36 Aorta Name Value Normal Ascending Aorta Ao Root Diameter (MM) 2.7 cm Ao Root Diam Index (MM) 1.4 cm/m2 Aortic Valve Name Value Normal AV Doppler AV Peak Velocity 222 cm/s AV Peak Gradient 20 mmHg AV Mean Gradient 13 mmHg AV VTI 43 cm AV Area (Cont Eq VTI) 1.1 cm2 >=3.0 AV Area (Cont Eq Jaime) 1.4 cm2 AV Regurgitation 2D LVOT Area 2.5 cm2 Ventricles Name Value Normal LV Dimensions 2D/MM IVS Diastolic Thickness (2D) 1.0 cm 0.6-1.0 LVID Diastole (2D) 5.7 cm 3.8-5.2 LVIW Diastolic Thickness (2D) 0.9 cm 0.6-0.9 LVID Systole (2D) 4.9 cm 2.2-3.5 LVOT Diameter 1.8 cm LV Mass (2D Cubed) 210.74 g 67.00-162.00 LV Mass Index (2D Cubed) 113 g/m2 43-95 Relative Wall Thickness (2D) 0.31 LV Fractional Shortening/Ejection Fraction 2D/MM LV Fractional Shortening (2D) 14 % 27-45 LV EF (2D Teicholz) 30 % 54-74 LV Diastolic Volume (4C MOD) 148 ml LV EF (4C MOD) 36 % LV Diastolic Volume (2C MOD) 172 ml LV EF (2C MOD) 32 % LV Diastolic Volume (BP MOD) 162 ml 46-106 LV Diastolic Volume Index (BP MOD) 87 ml/m2 29-61 LV Systolic Volume (BP MOD) 107 ml 14-42 LV Systolic Volume Index (BP MOD) 57 ml/m2 8-24 LV EF (BP MOD) 34 % 54-74 LV Diastolic Length (4C) 8.6 cm LV Systolic Length (4C) 7.9 cm LV Stroke Volume (4C MOD) 53 ml RV Dimensions 2D/MM RVID Diastole (2D) 3.8 cm 2.5-3.5 Atria Name Value Normal LA Dimensions LA Dimension (MM) 5.1 cm 2.7-3.8 LA Volume (4C A-L) 119 ml LA Volume (BP A-L) 126 ml RA Dimensions RA Area (4C) 16.3 cm2 <=18.0 Report Signatures
--- NOTE | ~2025-02-02 | NM_ITS ---
. EXAMINATION: NM lung vent and perfusion DATE: 02/02/2025 16:09 INDICATION: Dyspnea. TECHNIQUE: 25 mCi Xenon-133 was given for ventilation images. 5.5 mCi Tc-99m MAA was administered int ravenously for perfusion images. Scintigraphic images of the chest were obtained. COMPARISON: Chest single view 02/02/2025 FINDINGS: The ventilation images demonstrate small defects in the upper and lower lobes. There is mild diffuse retention bilaterally. The perfusion images demonstrate small matched defects in the lower lobes. IMPRESSION: 1. Low probability for pulmonary embolism. Reviewed, dictated and finalized at location [facility].
--- OUTSIDE RECORDS SUMMARY | 2025-02-02 12:36 | XMS_ITS | Encounter Summary ---
Author Organization [facility] Address [facility] [place] [address] Care Team Providers Care Quality Assurance Lead Name Role Phone Nona Núñez MD Primary Care Provider Seth Frances MD Unavailable Unavailabl e Encounter Details Date Type Department Care Team (Late st Contact Info) Description 06/15/2016 Abstract [facility] [address] [place] [phone] Abstract, Doc [facility] Social History Tobacco [...] on filedocumented in this encounter Care Teams Quality Assurance Lead Relationship Specialty Start Date End Date Nona Núñez MD [address] [place] [address] PCP - General INTERNAL MEDICINE 07/23/16 Seth Frances MD [address] [place] [address] CARDIOVASCULAR DISEASE 07/23/16 documented as of this encounter
--- OUTSIDE RECORDS SUMMARY | 2025-02-02 12:36 | XMS_ITS | Clinical Summary ---
Author Organization [facility] Address [address] [place] [address] Care Team Providers Care Warehouse Supervisor Name Role Phone Nona Núñez MD Primary Care Provider [phone] Seth Frances MD Unavailable Unavailabl e Allergies [...] complete this topic Insurance [employer] Care Teams Warehouse Supervisor Relationship Specialty Start Date End Date Nona Núñez MD [address] [place] [address] PCP - General INTERNAL MEDICINE 07/23/16 Seth Frances MD [address] [place] [address] CARDIOVASCULAR DISEASE 07/23/16
--- NOTE | 2025-02-02 13:04 | ADMGEN ---
This patient, Maranda Izquierdo, was admitted to IMU Room 203-01 at 1245. Patient/family oriented to hospital policies and general routines including ID bracelet, bed and alarms, visiting hours, pain management, procedures, bathroom and other care routines, personal items, smoking policy, room service/diet, and visiting hours. Information on how to activate the Rapid Response Team has been discussed. Patient/Family are encouraged to report perceived risks to care and to ask questions if they do not understand what they are told or what they should do.
--- NOTE | 2025-02-02 13:12 | P.HP_ITS ---
H&P: HPI History of Present Illness Date/Time: 02/02/25 13:12 Chief Complaint: Shortness of Breath Narrative: 74 y/o F presents here with shortness of breath, cough, and congestion with PMH of diabetes, seizure x1 due to hyponatremia, chronic hyponatremia, hypertension, anxiety/depression, and hyperlipidemia. The patient presented to [facility] on 02/02 via EMS from home for further evaluation of shortness of breath, cough, and congestion. Cough has been dry. She reports onset of symptoms yesterday, 02/01 at 3 a.m., with worsening progression of the symptoms a few hours prior to arrival. EMS found the patient's O2 saturation to be in the upper 80s on room air and administered 1 nebulizer. She arrived 87% on room air and was placed on 4L NC. She denies accompanying chest pain, nausea, vomtiing, diarrhea, fever, chills, lower extremity edema, or weight gain. Initial VS at presentation: ED workup showed: WBC 16.0, no anemia, elevated D-dimer, INR 0.9, sodium 128, creatinine 0.82 and normal GFR, glucose 235, lactic 1.3, magnesium 1.7, initial high sensitivity troponin 53.4, 2nd high sensitivity troponin 98.9 BNP 5009, and UA showed a high specific gravity/1+ protein/trace glucose/1+ ketones. Viral PCR negative. CXR showed [id number] bibasilar pulmonary edema pattern. EKG showed junctional tachycardia, rate 114, left bundle branch block. Review of Systems Review of Systems: All systems reviewed & are unremarkable except as noted in HPI and below PMFSH Past Medical History Medical History High cholesterol HTN (hypertension) History of seizure only one time Depression Diabetes Injury of toenail Third degree hemorrhoids Surgical History Surgical History Hx of cholecystectomy History of knee joint replacement H/O neck surgery H/O rotator cuff surgery History of carpal tunnel surgery History of hysterectomy Family History Family History Sibling Hypertension Family history of elevated blood lipids Family history of cardiovascular disease Father Family history of cardiovascular disease Mother Family history of Alzheimer's disease Other Cerebrovascular accident Diabetes mellitus Family history of kidney disease Family history of malignant neoplasm Social History Social History Smoking status: Never smoker Second hand tobacco smoke exposure: No Alcohol intake: never Substance use: never Substance use type: does not use Do You Feel Safe in your Home?: Yes Lack of Transportation: No Lack of Food: Never True Current Housing: I Have Housing Concerned About Future Housing: No Difficulty Paying Gas/Electric Bills: No Difficulty Paying for Meds: No Currently Unemployed: No Education: Associate Degree Difficulty w/ Childcare or Family Care: No Spiritual care concerns: No Meds Home Medications and Allergies Home Medications ?Medication ?Instructions ?Recorded ?Confirmed ?Type blood sugar diagnostic (Accu-Chek #10 ea 10/05/19 02/02/25 History Guide test strips) blood-glucose meter (Accu-Chek #1 ea 10/05/19 02/02/25 History Guide Me Glucose Meter) lancets (Accu-Chek Softclix #50 ea 10/05/19 02/02/25 History Lancets) metformin 500 mg tablet 500 mg PO BID 10/05/19 02/02/25 History amlodipine 10 mg tablet 10 mg PO DAILY 02/02/25 02/02/25 History ascorbic acid (vitamin C) 500 mg 500 mg PO DAILY 02/02/25 02/02/25 History tablet (Vitamin C) aspirin 81 mg tablet,delayed 81 mg PO DAILY 02/02/25 02/02/25 History release (Vish Low Dose Aspirin) atorvastatin 40 mg tablet 40 mg PO QPM 02/02/25 02/02/25 History buspirone 10 mg tablet 10 mg PO BID 02/02/25 02/02/25 History coenzyme Q10 100 mg capsule (Co 200 mg PO ONCE 02/02/25 02/02/25 History Q-10) escitalopram oxalate 10 mg tablet 10 mg PO DAILY 02/02/25 02/02/25 History ferrous sulfate 325 mg (65 mg 65 mg PO DAILY 02/02/25 02/02/25 History iron) tablet glimepiride 1 mg tablet 1 mg PO DAILY 02/02/25 02/02/25 History lisinopril 20 mg tablet 20 mg PO DAILY 02/02/25 02/02/25 History magnesium 200 mg tablet 400 mg PO BID 02/02/25 02/02/25 History memantine 5 mg tablet 5 mg PO BID 02/02/25 02/02/25 History sodium chloride 1,000 mg soluble 1,000 mg PO DAILY 02/02/25 02/02/25 History tablet Allergies Allergy/AdvReac Type Severity Reaction Status Date / Time adhesive tape Allergy Unknown BLISTERS Verified 02/02/25 06:32 ampicillin Allergy Unknown rash Verified 02/02/25 06:32 diazepam Allergy Unknown rash Verified 02/02/25 06:32 meperidine Allergy Unknown GI upset Verified 02/02/25 06:32 Penicillins Allergy Unknown rash Verified 02/02/25 06:32 Contrast Media Allergy Unknown unknown Uncoded 02/02/25 06:32 Vital Signs Vital Signs - 24 hr 02/02/25 12:20 Temperature 98.0 F Pulse Rate 103 H Respiratory Rate 14 Blood Pressure 128/73 Pulse Oximetry 93 Exam Const: General: comfortable and no acute distress Other: , female, modestly ill-appearing HENMT: Face/Nose/Sinus: Normal nares present Mouth: Yes moist mucous membranes Other: NC in place, tolerating well. Eyes: General: appearance normal, both eyes and all related structures Sclera: sclerae normal Pupils: Equal, round and reactive pupils present EOM: EOMs intact bilaterally Resp: Effort & Inspection: normal respiratory effort Other: faint bibasilar crackles. Cardio: Rate: regular rate Rhythm: regular rhythm Other: S1-S2 present without murmur, rub, ectopy GI: Other: Abdomen soft, nondistended, nontender. Normoactive bowel sounds in all quadrants. Skin: General skin exam: normal color and no rashes or lesions noted Wounds: no wounds Neuro: Speech: normal speech Motor exam (neuro): 5/5 motor strength present throughout Sensory Exam: normal sensation Other: A&O x4 Extrem: General: normal to inspection Psych: Mental Status: mental status grossly normal Other: Flat affect. Assessment and Plan Assessment and plan (1) Elevated troponin: Code(s): R79.89 - Other specified abnormal findings of blood chemistry Status: Acute Assessment and Plan: - EKG, initial: Junctional tachycardia, rate 114, left bundle branch block, awaiting formal read. - repeat EKG - CXR: Mild to moderate bibasilar pulmonary edema - Troponin: 53.4 -> 98.9 (high sensitivity, normal range <60.4) -> 0.097 - ASA 324 given -> continue 81 daily (on at home) - SL nitro PRN - cardiology consulted, Kaitlyn MANUFACTURING PLANT TECHNICIAN echo pending, continue Lasix 20 mg BID nitro paste and heparin gtt, LBBB on EKG making an assessment for ischemic changes difficult, cannot rule out ACS further recommendations pending V/Q scan, repeat troponin - check echo - telemetry monitoring (2) Pulmonary edema: Qualifiers: Chronicity: acute Qualified Code(s): J81.0 - Acute pulmonary edema Code(s): J81.1 - Chronic pulmonary edema Status: Acute Assessment and Plan: - suspected new onset CHF - BNP 5009 - see CXR above - no echo on file, check - initially given Lasix 20 mg IV in ED at [facility] and tolerated well, will continue as Lasix 20 mg IV b.i.d. - cardiology consulted, see recs above - monitor I&Os and daily weights - trend renal function (3) Hyponatremia: Code(s): E87.1 - Hypo-osmolality and hyponatremia Status: Chronic Assessment and Plan: - Na 128 - previous range: 119-135 - previously so low (119) she had a seizure x1 - continue home med: NaCl 1G tabs daily - may be dilutional from suspected new CHF, also on escitalopram and buspar - monitor (4) Diabetes: Qualifiers: Diabetes mellitus complication status: with hyperglycemia Diabetes mellitus fdc insulin use: without printing bindery assistant use Diabetes mellitus type: type 2 Qualified Code(s): E11.65 - Type 2 diabetes mellitus with hyperglycemia Code(s): E11.9 - Type 2 diabetes mellitus without complications Status: Chronic Assessment and Plan: - hypoglycemia protocol - POC blood glucose ACHS - home medication: hold metformin and glimepiride - correct regimen ordered - moderate dose TIDWM and HS, based off BMI - A1C 6.5% in 2019, update (5) High cholesterol: Code(s): E78.00 - Pure hypercholesterolemia, unspecified Status: Chronic Assessment and Plan: - check lipid panel - continue atorvastatin 40 mg daily (6) HTN (hypertension): Qualifiers: Hypertension type: primary hypertension Qualified Code(s): I10 - Essential (primary) hypertension Code(s): I10 - Essential (primary) hypertension Status: Chronic Assessment and Plan: - chronic, currently 128/73 - continue home medications: amlodipine 10 mg daily, lisinopril 20 mg daily - monitor Plan Diet: heart healthy, NPO at midnight GI Prophylaxis: Not currently indicated DVT Prophylaxis: Heparin gtt Lines: Peripheral Code Status: Full code Quality VTE Prophylaxis VTE prophylaxis: pharmacologic ordered Hospitalist MIPS Advance Care Plan I have confirmed that the patient's Advanced Care Plan is present, code status is documented, or surrogate decision maker is listed in patient medical record.: Yes Medication Reconciliation I have utilized all available resources to obtain, update and review the patients current medications (includes all prescriptions, OTC, herbals, cannabis, and nutritional supplements).: Yes
--- NOTE | 2025-02-02 13:34 | ECG_ITS ---
Test Date: 2025-02-02 14:42:52 Measurements Intervals [place] Rate: 110 P: 184 [place]: 127 QRS: -20 QRSD: 158 T: 93 QT: 411 QTc: 557 Interpretive Statements SINUS TACHYCARDIA LEFT BUNDLE BRANCH BLOCK Electronically Signed On 02-04-2025 13:50:58 CDT by Emir Greer D.O
--- NOTE | 2025-02-02 13:54 | P.CONCA_ITS ---
Assessment and Plan Assessment and plan (1) New onset of congestive heart failure: Code(s): I50.9 - Heart failure, unspecified Status: Acute Assessment and Plan: Presents with chief complaint of shortness of breath. She has pulmonary edema and her BNP is elevated at 5000. She has been given IV furosemide and her shortness of breath has improved. * Echocardiogram has been ordered and is pending * Continue with IV furosemide 20 mg IV b.i.d. for now * Strict intake and output * Daily weights * Supplemental oxygen as needed * Further recommendations to follow review of echocardiogram (2) Elevated troponin: Code(s): R79.89 - Other specified abnormal findings of blood chemistry Status: Acute Assessment and Plan: Initial troponin was 53.4, 98.9 (high sensitivity at [place]). Her 1st troponin here is pending. Will treat this as an acute coronary syndrome for now, although I suspect her troponin may be slightly elevated because of pulmonary embolism (her D-dimer is 1.9, recommend V/Q scan as she has contrast dye allergy). Her EKG shows sinus tachycardia with a left bundle branch block which makes interpretation for ischemic changes difficult. Cannot rule out underlying coronary artery disease. * Continue to trend troponin until peak * Start heparin drip per protocol * Nitropaste * Continuous telemetry monitoring * Echocardiogram is pending * Further recommendations pending results of V/Q scan, repeat troponin (3) High cholesterol: Code(s): E78.00 - Pure hypercholesterolemia, unspecified Status: Chronic Assessment and Plan: Continue statin (4) HTN (hypertension): Qualifiers: Hypertension type: primary hypertension Qualified Code(s): I10 - Essential (primary) hypertension Code(s): I10 - Essential (primary) hypertension Status: Chronic Assessment and Plan: Controlled (5) Elevated d-dimer: Code(s): R79.89 - Other specified abnormal findings of blood chemistry Status: Acute Assessment and Plan: Recommend imaging to rule out pulmonary embolism History of Present Illness History of Present Illness Consult date/time: 02/02/25 13:54 Requesting physician: Ena Matos MD Consult reason: congestive heart failure Reason For Visit: Elevated Troponin/Short of Breath Narrative: Maranda Izquierdo is a 74 year old female with hyperlipidemia, hypertension, diabetes mellitus type 2. She initially presented to [facility] with a chief complaint of shortness of breath. For some reason a troponin was sampled and was found to be elevated. She was therefore transferred to [place] for further management. Patient reports that she awoke from sleep around 3:00 a.m. this morning feeling significant shortness of breath. She asked her to call an ambulance. Her history is somewhat inconsistent because (per the patient's daughter who is at the bedside) has intermittent confusion, therefore she does not accurately recall her symptoms. According to the , she had been in her normal state of health before this event early this morning. She tells me that she has had constant central tingling sensation in her chest all day and currently rates the discomfort lasts a sensation at a 7/10. She is also complaining of pain in both of her legs which is a chronic issue for which she takes Tylenol for. She is resting in bed currently and does not appear to be in any acute distress. Review of Systems Review of Systems: All systems reviewed & are unremarkable except as noted in HPI and below PMFSH Past Medical History Medical History High cholesterol HTN (hypertension) History of seizure only one time Depression Diabetes Injury of toenail Third degree hemorrhoids Surgical History Surgical History Hx of cholecystectomy History of knee joint replacement H/O neck surgery H/O rotator cuff surgery History of carpal tunnel surgery History of hysterectomy Family History Family History Sibling Hypertension Family history of elevated blood lipids Family history of cardiovascular disease Father Family history of cardiovascular disease Mother Family history of Alzheimer's disease Other Cerebrovascular accident Diabetes mellitus Family history of kidney disease Family history of malignant neoplasm Social History Social History Smoking status: Never smoker Second hand tobacco smoke exposure: No Alcohol intake: never Substance use: never Substance use type: does not use Do You Feel Safe in your Home?: Yes Lack of Transportation: No Lack of Food: Never True Current Housing: I Have Housing Concerned About Future Housing: No Difficulty Paying Gas/Electric Bills: No Difficulty Paying for Meds: No Currently Unemployed: No Education: Associate Degree Difficulty w/ Childcare or Family Care: No Spiritual care concerns: No Meds Home Medications and Allergies Home Medications ?Medication ?Instructions ?Recorded ?Confirmed ?Type blood sugar diagnostic (Accu-Chek #10 ea 10/05/19 History Guide test strips) blood-glucose meter (Accu-Chek #1 ea 10/05/19 History Guide Me Glucose Meter) lancets (Accu-Chek Softclix #50 ea 10/05/19 History Lancets) metformin 500 mg tablet 500 mg PO BID 10/05/19 02/02/25 History amlodipine 10 mg tablet 10 mg PO DAILY 02/02/25 02/02/25 History ascorbic acid (vitamin C) 500 mg 500 mg PO DAILY 02/02/25 02/02/25 History tablet (Vitamin C) aspirin 81 mg tablet,delayed 81 mg PO DAILY 02/02/25 02/02/25 History release (Vish Low Dose Aspirin) atorvastatin 40 mg tablet 40 mg PO QPM 02/02/25 02/02/25 History buspirone 10 mg tablet 10 mg PO BID 02/02/25 02/02/25 History coenzyme Q10 100 mg capsule (Co 200 mg PO ONCE 02/02/25 02/02/25 History Q-10) escitalopram oxalate 10 mg tablet 10 mg PO DAILY 02/02/25 02/02/25 History ferrous sulfate 325 mg (65 mg 65 mg PO DAILY 02/02/25 02/02/25 History iron) tablet glimepiride 1 mg tablet 1 mg PO DAILY 02/02/25 02/02/25 History lisinopril 20 mg tablet 20 mg PO DAILY 02/02/25 02/02/25 History magnesium 200 mg tablet 400 mg PO BID 02/02/25 02/02/25 History memantine 5 mg tablet 5 mg PO BID 02/02/25 02/02/25 History sodium chloride 1,000 mg soluble 1,000 mg PO DAILY 02/02/25 02/02/25 History tablet Allergies Allergy/AdvReac Type Severity Reaction Status Date / Time adhesive tape Allergy Unknown BLISTERS Verified 02/02/25 06:32 ampicillin Allergy Unknown rash Verified 02/02/25 06:32 diazepam Allergy Unknown rash Verified 02/02/25 06:32 meperidine Allergy Unknown GI upset Verified 02/02/25 06:32 Penicillins Allergy Unknown rash Verified 02/02/25 06:32 Contrast Media Allergy Unknown unknown Uncoded 02/02/25 06:32 Vital Signs Vital Signs - 24 hr 02/02/25 12:20 Temperature 36.7 C Pulse Rate 103 H Respiratory Rate 14 Blood Pressure 128/73 Pulse Oximetry 93 Exam Const: General: no acute distress, alert, awake and uncomfortable (Has pain in both of her legs) Orientation/consciousness: patient oriented x3 HENMT: Head: normal to inspection Eyes: General: appearance normal, both eyes and all related structures Pupils: Equal, round and reactive pupils present Neck: Neck: normal visual inspection, supple and no JVD Carotids: normal carotid upstroke Resp: Effort & Inspection: normal respiratory effort Auscultation: not clear to auscultation bilaterally and rales Cardio: Rate: tachycardic Rhythm: regular rhythm Heart sounds: S1 normal heart sound present, S2 normal heart sound present and no murmurs GI: Auscultation: normal bowel sounds Skin: General skin exam: normal color Neuro: General: patient oriented x3 Cranial nerves: Yes Equal, round and reactive pupils present Extrem: General: normal to inspection Other: No edema Psych: Appearance: grossly normal Mental Status: mental status grossly normal Results Labs and Meds Lab results: Intake and Output 02/01/25 02/02/25 02/02/25 23:59 07:59 15:59 Other: # Unmeasured Voids 1 Patient Weight 02/02/25 23:59 Weight 75.2 kg
[2025-02-02 15:22] LABS: Troponin I 0.097 ng/mL (0.000-0.034)
[2025-02-02 15:23] LABS: Basophils Percent Auto 0.2 % (0.2-1.2); Eosinophils Percent Auto 0.2 % (0-4.4); Hematocrit 36.6 % (37.0-47.0); Hemoglobin 12.6 g/dL (12.0-15.0); Immature Granulocyte Absolute 0.03 K/mm3 (0.00-0.031); Immature Granulocyte Percent A 0.5 % (0-0.5); Lymphocytes Absolute Auto 0.47 K/mm3 (0.9-3.2); Lymphocytes Percent Auto 8.1 % (18.3-44.2); Mean Corpuscular HGB Conc 34.4 g/dl (32-36); Mean Corpuscular Hemoglobin 28.8 pg (26-34); Mean Corpuscular Volume 83.8 fl (80-100); Mean Platelet Volume 9.6 fl (7.4-10.4); Monocytes Absolute Auto 0.1 K/mm3 (0.1-0.6); Monocytes Percent Auto 2.3 % (2.6-8.5); Neutrophils Absolute Auto 5.1 K/mm3 (1.3-6.7); Neutrophils Percent Auto 88.7 % (45.5-73.1); Platelet Count Result 322 k/mm3 (150-375); Red Blood Count 4.37 M/mm3 (4.2-5.4); Red Cell Distribution Width 13.9 % (11.5-14.5); White Blood Count 5.8 K/mm3 (4.5-10.0)
[2025-02-02 15:34] LABS: Prothrombin Time 13.6 Seconds (11.1-14.7)
[2025-02-02 15:35] LABS: Partial Thromboplastin Time 22.6 Seconds (22.3-36.8)
--- NOTE | 2025-02-02 15:41 | PC.NURSE ---
ST elevation noted on farm manager in 3 leads. Janice Sahni notified. EKG obtained. Orders received for heparin drip. PT reports 710 tingling to the mid chest. O2 sat at 92% ORA, 2L NC applied.
--- OUTSIDE RECORDS SUMMARY | 2025-02-02 16:10 | XMS_ITS | Encounter Summary ---
Author Organization [facility] Address [facility] [place] [address] Care Team Providers Care Vehicle Assembly Inspector Name Role Phone Nona Núñez MD Primary Care Provider [phone] Seth Frances MD Unavailable Unavailabl e Encounter Details Date Type Department Care Team (Late st Contact Info) Description 06/15/2016 Abstract [facility] [address] [place] [id number] Abstract, Doc [facility] Social History Tobacco [...] on filedocumented in this encounter Care Teams Vehicle Assembly Inspector Relationship Specialty Start Date End Date Nona Núñez MD [address] [place] [address] PCP - General INTERNAL MEDICINE 07/23/16 Seth Frances MD [address] [place] [address] CARDIOVASCULAR DISEASE 07/23/16 documented as of this encounter
--- OUTSIDE RECORDS SUMMARY | 2025-02-02 16:10 | XMS_ITS | Clinical Summary ---
Author Organization [facility] Address [address] [place] [address] Care Team Providers Care Sales And Leasing Consultant Name Role Phone Nona Núñez MD Primary Care Provider [phone] Seth Frances MD Unavailable Unavailabl e Allergies [...] complete this topic Insurance [employer] Care Teams Sales And Leasing Consultant Relationship Specialty Start Date End Date Nona Núñez MD [address] [place] [address] PCP - General INTERNAL MEDICINE 07/23/16 Seth Frances MD [address] [place] [address] CARDIOVASCULAR DISEASE 07/23/16
[2025-02-02] MEDS: FUROSEMIDE INJ 40 MG/4 ML VIAL 20 MG IV PUSH (16:30)
[2025-02-02] MEDS: HEPARIN SODIUM 5,000 UNITS/ML VIAL 4000 UNITS IV PUSH (16:30)
[2025-02-02] MEDS: busPIRone HCL 10 MG TABLET PO (16:31)
[2025-02-02] MEDS: lisinopriL 20 MG TABLET PO (16:31)
[2025-02-02] MEDS: ASCORBIC ACID 500 MG TABLET PO (16:31)
[2025-02-02] MEDS: SODIUM CHLORIDE 1 GM TABLET PO (16:31)
[2025-02-02] MEDS: MAGNESIUM OXIDE 400 MG TABLET PO (16:31)
[2025-02-02] MEDS: MEMANTINE 5 MG TABLET PO (16:31)
[2025-02-02] MEDS: ASPIRIN 81 MG ENTERIC TABLET PO (16:31)
[2025-02-02] MEDS: amLODIPine BESYLATE 10 MG TABLET PO (16:32)
[2025-02-02] MEDS: NITROGLYCERIN OINTMENT 1 INCH DOSE 0.5 INCH TRANSDERM (16:32)
[2025-02-02] MEDS: HEPARIN SOD/D5W 100 UNITS/ML 25,000 UNITS/250 ML BAG 8 UNITS IV CONT (16:35)
[2025-02-02] MEDS: ESCITALOPRAM OXALATE 10 MG TABLET PO (18:07)
[2025-02-02] MEDS: ASPIRIN 81 MG CHEWABLE TABLET 324 MG PO (18:07)
[2025-02-02] MEDS: ATORVASTATIN 40 MG TABLET PO (18:33)
[2025-02-02 21:03] LABS: Glucose Point of Care 266 mg/dl (65-105)
[2025-02-02 22:58] LABS: Partial Thromboplastin Time 53.5 Seconds (22.3-36.8)
[2025-02-03] VITALS (19 sets, daily range): BP systolic 101–124; BP diastolic 48–72; PULSE 71–102; RESP 12–27; TEMP 36.4–36.7; O2SAT 93–98
[2025-02-03] MEDS: HEPARIN SODIUM 5,000 UNITS/ML VIAL 4000 UNITS IV PUSH ×2 (00:22→09:41)
[2025-02-03 07:22] LABS: Basophils Percent Auto 0.3 % (0.2-1.2); Eosinophils Percent Auto 0.2 % (0-4.4); Hematocrit 34.3 % (37.0-47.0); Hemoglobin 11.6 g/dL (12.0-15.0); Immature Granulocyte Absolute 0.08 K/mm3 (0.00-0.031); Immature Granulocyte Percent A 0.6 % (0-0.5); Lymphocytes Absolute Auto 1.66 K/mm3 (0.9-3.2); Mean Corpuscular HGB Conc 33.8 g/dl (32-36); Mean Corpuscular Hemoglobin 28.7 pg (26-34); Mean Corpuscular Volume 84.9 fl (80-100); Mean Platelet Volume 10.3 fl (7.4-10.4); Monocytes Absolute Auto 1.3 K/mm3 (0.1-0.6); Monocytes Percent Auto 9.9 % (2.6-8.5); Neutrophils Absolute Auto 9.7 K/mm3 (1.3-6.7); Platelet Count Result 327 k/mm3 (150-375); Red Blood Count 4.04 M/mm3 (4.2-5.4); Red Cell Distribution Width 14.1 % (11.5-14.5); White Blood Count 12.7 K/mm3 (4.5-10.0)
[2025-02-03 07:33] LABS: Anion Gap 8 mmol/L (4-12); Blood Urea Nitrogen 14 mg/dL (7-17); Calcium 8.7 mg/dL (8.4-10.2); Carbon Dioxide 27 mmol/L (22-30); Chloride 94 mmol/L (98-107); Cholesterol 168 mg/dL (0-200); Estimated CRCL calculation 56 ml/min; Estimated Glomerular Filt Rate > 60; Glucose 155 mg/dL (65-110); HDL Direct 70 mg/dL; Potassium 3.8 mmol/L (3.4-5.0); Sodium 129 mmol/L (137-145); Triglycerides 66 mg/dL (<150)
[2025-02-03 07:44] LABS: LDL Cholesterol Direct 72 mg/dL
[2025-02-03 07:53] LABS: Glucose Point of Care 166 mg/dl (65-105)
[2025-02-03 07:57] LABS: Partial Thromboplastin Time 54.8 Seconds (22.3-36.8)
--- NOTE | 2025-02-03 09:21 | P.PNIM_ITS ---
Progress Note: A&P Assessment and Plan (1) HTN (hypertension): Qualifiers: Hypertension type: primary hypertension Qualified Code(s): I10 - Essential (primary) hypertension Code(s): I10 - Essential (primary) hypertension Status: Chronic (2) High cholesterol: Code(s): E78.00 - Pure hypercholesterolemia, unspecified Status: Chronic (3) Elevated d-dimer: Code(s): R79.89 - Other specified abnormal findings of blood chemistry Status: Acute (4) Diabetes: Qualifiers: Diabetes mellitus complication status: with hyperglycemia Diabetes mellitus [facility] insulin use: without [facility] use Diabetes mellitus type: type 2 Qualified Code(s): E11.65 - Type 2 diabetes mellitus with hyperglycemia Code(s): E11.9 - Type 2 diabetes mellitus without complications Status: Chronic (5) Hyponatremia: Code(s): E87.1 - Hypo-osmolality and hyponatremia Status: Chronic Plan NSTEMI Elevated troponin: Code(s): R79.89 - Other specified abnormal findings of blood chemistry Status: Acute Assessment and Plan: Elevated troponin and trending up EKG showed Junctional tachycardia, rate 114, left bundle branch block, awaiting formal read. Received ASA 324 given continue 81 daily (on at home) Nitroglycerin sublingual - cardiology consulted, Kaitlyn MONSIVAIS echo pending, continue Lasix 20 mg BID Started heparin gtt, V/Q scan: Low probability of pulmonary embolism Telemetry monitoring Acute heart failure X-ray showed Pulmonary edema Qualifiers: Chronicity: acute Qualified Code(s): J81.0 - Acute pulmonary edema Code(s): J81.1 - Chronic pulmonary edema Status: Acute Assessment and Plan: BNP 5009 Pending echocardiogram Received Lasix IV in ED Consult cardiology for further evaluation and treatment monitor I&Os and daily weights Pending echo (3) Hyponatremia: Code(s): E87.1 - Hypo-osmolality and hyponatremia Status: Chronic Assessment and Plan: Na 128, possible hypovolemia hyponatremia due to CHF fluid overload Given history previously so low (119) she had a seizure x1 Hold escitalopram and buspar Sodium is trending up slowly monitor (4) Diabetes: Qualifiers: Diabetes mellitus complication status: with hyperglycemia Diabetes mellitus [facility] insulin use: without [facility] use Diabetes mellitus type: type 2 Qualified Code(s): E11.65 - Type 2 diabetes mellitus with hyperglycemia Code(s): E11.9 - Type 2 diabetes mellitus without complications Status: Chronic Assessment and Plan: - hypoglycemia protocol - POC blood glucose ACHS - home medication: hold metformin and glimepiride - correct regimen ordered - moderate dose TIDWM and HS, based off BMI - A1C 6.5% in 2019, update (5) High cholesterol: Code(s): E78.00 - Pure hypercholesterolemia, unspecified Status: Chronic Assessment and Plan: continue atorvastatin 40 mg daily (6) HTN (hypertension): Qualifiers: Hypertension type: primary hypertension Qualified Code(s): I10 - Essential (primary) hypertension Code(s): I10 - Essential (primary) hypertension Status: Chronic Assessment and Plan: continue home medications: amlodipine 10 mg daily, lisinopril 20 mg daily - monitor Subjective Date/time seen: 02/03/25 09:21 Interval history: I saw examined the patient in present patient family. Patient feels comfortable in bed, denies chest pain still has shortness breath with exertion. Denies abdomen pain nausea vomiting diarrhea Exam Narrative: GENERAL: Pleasant, in no acute distress. Well-nourished. - EYES: EOMI. Anicteric. - HENT: Moist mucous membranes. - LUNGS: Crackles bilateral base - CARDIOVASCULAR: Regular rate and rhyth m. No murmur. No JVD. - ABDOMEN: Soft, non-tender and non-dist ended. No palpable masses. - EXTREMITIES: No edema. Peripheral puls es 2+. Non-tender. - NEUROLOGIC: No focal neurological defi cits. CN II-XII grossly intact. - PSYCHIATRIC: Awake, Alert and oriented x 3. Appropriate mood and affect. - SKIN: No rashes or lesions. Warm. - LYMPH: No cervical lymphadenopathy. Objective Data Vital Signs Vital Signs: Vital Signs - 24 hr 02/02/25 12:20 02/02/25 14:00 02/02/25 16:00 Temperature 98.0 F Pulse Rate 103 H 110 H 117 H Respiratory Rate 14 Blood Pressure 128/73 Pulse Oximetry 93 94 Oxygen Delivery Nasal Cannula Oxygen Flow Rate 2 02/02/25 16:00 02/02/25 16:00 02/02/25 18:00 Temperature 98.1 F Pulse Rate 117 H 108 H 117 H Respiratory Rate 16 Blood Pressure 130/78 Pulse Oximetry 95 Oxygen Delivery Oxygen Flow Rate 02/02/25 20:00 02/02/25 20:00 02/02/25 20:17 Temperature Pulse Rate 106 H Respiratory Rate Blood Pressure Pulse Oximetry 93 93 Oxygen Delivery Nasal Cannula Oxygen Flow Rate 2 2 02/02/25 20:20 02/02/25 22:00 02/03/25 00:00 Temperature 97.4 F L Pulse Rate 107 H 114 H 98 Respiratory Rate 18 Blood Pressure 122/63 Pulse Oximetry 91 Oxygen Delivery Oxygen Flow Rate 02/03/25 00:20 02/03/25 00:23 02/03/25 02:00 Temperature 97.6 F Pulse Rate 90 102 H Respiratory Rate 18 Blood Pressure 111/63 Pulse Oximetry 94 93 Oxygen Delivery Nasal Cannula Oxygen Flow Rate 2 02/03/25 02:25 02/03/25 04:00 02/03/25 04:00 Temperature 97.7 F Pulse Rate 94 95 71 Respiratory Rate 27 H 18 Blood Pressure 118/68 Pulse Oximetry 93 97 Oxygen Delivery Autopap Oxygen Flow Rate 02/03/25 04:10 02/03/25 06:00 02/03/25 08:00 Temperature 97.8 F Pulse Rate 93 90 Respiratory Rate 18 Blood Pressure 124/72 Pulse Oximetry 94 98 Oxygen Delivery Nasal Cannula Oxygen Flow Rate 2 Intake/Output Intake/Output: Intake & Output 01/31/25 02/01/25 02/02/25 02/03/25 23:59 23:59 23:59 23:59 Intake Total 240 812.8 Output Total 1500 1500 Balance -1260 -397.2 Meds/Results Medications: Active Medications Generic Name Dose Route Start Last Admin Trade Name Freq PRN Reason Stop Dose Admin Acetaminophen 650 mg 02/02/25 13:24 Acetaminophen 325 Mg Tablet PO Q4H PRN Mild Pain (1-3) or Fever Amlodipine Besylate 10 mg 02/02/25 14:00 02/02/25 16:32 Amlodipine Besylate 10 Mg Tablet PO 10 mg DAILY [facility] Administration Ascorbic Acid 500 mg 02/02/25 14:00 02/02/25 16:31 Ascorbic Acid 500 Mg Tablet PO 500 mg DAILY [facility] Administration Aspirin 81 mg 02/02/25 14:00 02/02/25 16:31 Aspirin 81 Mg Enteric Tablet PO 81 mg DAILY [facility] Administration Atorvastatin Calcium 40 mg 02/02/25 18:00 02/02/25 18:33 Atorvastatin 40 Mg Tablet PO 40 mg QPM [facility] Administration Buspirone HCl 10 mg 02/02/25 17:00 02/02/25 16:31 Buspirone Hcl 10 Mg Tablet PO 10 mg BID [facility] Administration Dextrose 12.5 gm 02/02/25 13:38 Dextrose 50% 25 Gm/50 Ml Syringe IV PUSH PRN PRN Hypoglycemia Protocol Escitalopram Oxalate 10 mg 02/02/25 14:00 02/02/25 18:07 Escitalopram Oxalate 10 Mg Tablet PO 10 mg DAILY [facility] Administration Ferrous Sulfate 325 mg 02/03/25 09:00 Ferrous Sulfate [address] PO DAILY@0800 [facility] Furosemide 20 mg 02/02/25 17:00 02/02/25 16:30 Furosemide Inj 40 Mg/4 Ml Vial IV PUSH 20 mg BID [facility] Administration Glucagon 1 mg 02/02/25 13:38 Glucagon For Inj 1 Mg Vial IM PRN PRN Hypoglycemia Protocol Glucose 15 gm 02/02/25 13:38 Glucose Oral Gel 15 Gm Of Glucse In 37.5 Gm Tube PO PRN PRN Hypoglycemia Protocol Heparin Sodium (Porcine) 4,000 units 02/02/25 14:56 02/03/25 00:22 Heparin Sodium 5,000 Units/Ml Vial IV PUSH 4,000 units PRN PRN Administration aPTT less than 55 seconds Heparin Sodium (Porcine) 2,500 units 02/02/25 14:56 Heparin Sodium 5,000 Units/Ml Vial IV PUSH PRN PRN aPTT 55 - 70 seconds Dextrose 1,000 mls @ 100 mls/hr 02/02/25 13:38 Dextrose 5% 1,000 Ml IVPB PRN PRN Hypoglycemia Protocol Heparin Sodium/Dextrose 25,000 units in 250 mls @ 11 mls/hr 02/02/25 15:00 02/03/25 00:26 Heparin Sodium/D5w 100 Units/Ml IV CONT 1,100 units/hr .[id number] [facility] 11 mls/hr Titration Protocol 1,100 UNITS/HR Insulin Aspart 3 - 6 units 02/02/25 17:00 02/02/25 18:08 Insulin Aspart (*Bkc) 100 Units/Ml SUB-Q Not Given TIDWM [facility] Protocol Insulin Aspart 1 - 3 units 02/03/25 21:00 Insulin Aspart (*Bkc) 100 Units/Ml SUB-Q HS [facility] Protocol Lisinopril 20 mg 02/02/25 14:00 02/02/25 16:31 Lisinopril 20 Mg Tablet PO 20 mg DAILY [facility] Administration Magnesium Oxide 400 mg 02/02/25 17:00 02/02/25 16:31 Magnesium Oxide 400 Mg Tablet PO 400 mg BID [facility] Administration Memantine 5 mg 02/02/25 17:00 02/02/25 16:31 Memantine 5 Mg Tablet PO 5 mg BID [facility] Administration Nitroglycerin 0.4 mg 02/02/25 13:28 Nitroglycerin Sl 0.4 Mg Tablet SUBLINGUAL Q5MIN PRN Chest Pain Non-Formulary Medication 1 each 02/02/25 13:57 Nonformulary Nutritional Supplement XX 02/03/25 13:56 PRN PRN PROTOCOL Ondansetron HCl 4 mg 02/02/25 13:24 Ondansetron Inj 4 Mg/2 Ml Vial IV PUSH Q6H PRN Nausea And Vomiting Perflutren Lipid Microsphere 0 ml 02/02/25 13:24 Perflutren Lipid Microspheres 1.5 Ml Vial Diluted To 10 Ml Total Volume IV PUSH 02/05/25 13:27 ONCE PRN adequate visualization Protocol Sodium Chloride 1 gm 02/02/25 14:00 02/02/25 16:31 Sodium Chloride 1 Gm Tablet PO 1 gm DAILY [facility] Administration Tamsulosin HCl 0.4 mg 02/03/25 09:00 Tamsulosin Hcl 0.4 Mg Capsule PO QAM [facility] Radiology Results: ITS Impressions Pulmonary Perfusion Imaging 02/02/25 16:10 IMPRESSION: 1. Low probability for pulmonary embolism. Labs Labs: Laboratory Results - last 24 hr 02/02/25 02/02/25 02/02/25 14:39 15:18 20:57 WBC 5.8 RBC 4.37 Hgb 12.6 Hct 36.6 L MCV 83.8 MCH 28.8 MCHC 34.4 RDW 13.9 Plt Count 322 MPV 9.6 Immature Gran % (Auto) 0.5 Neut % (Auto) 88.7 H Lymph % (Auto) 8.1 L [place] % (Auto) 2.3 L Eos % (Auto) 0.2 Baso % (Auto) 0.2 Lymph # (Auto) 0.47 L [place] # (Auto) 0.1 Eos # (Auto) 0.0 Baso # (Auto) 0.0 Abs Immat Gran (auto) 0.03 Absolute Neuts (auto) 5.1 Absolute Nucleated RBC 0.000 Nucleated RBC % 0.0 PT 13.6 INR 1.0 APTT 22.6 Sodium Potassium Chloride Carbon Dioxide Anion Gap BUN Creatinine Estim Creat Clear Calc Estimated GFR Glucose POC Capillary Glucose 266 H Calcium Troponin I 0.097 H* Triglycerides Cholesterol LDL Cholesterol Direct HDL Direct TSH (Reflex) 02/02/25 02/03/25 02/03/25 22:41 06:32 06:33 WBC 12.7 H RBC 4.04 L Hgb 11.6 L Hct 34.3 L MCV 84.9 MCH 28.7 MCHC 33.8 RDW 14.1 Plt Count 327 MPV 10.3 Immature Gran % (Auto) 0.6 H Neut % (Auto) 76.0 H Lymph % (Auto) 13.0 L [place] % (Auto) 9.9 H Eos % (Auto) 0.2 Baso % (Auto) 0.3 Lymph # (Auto) 1.66 [place] # (Auto) 1.3 H Eos # (Auto) 0.0 Baso # (Auto) 0.0 Abs Immat Gran (auto) 0.08 H Absolute Neuts (auto) 9.7 H Absolute Nucleated RBC 0.000 Nucleated RBC % 0.0 PT INR APTT 53.5 H 54.8 H Sodium 129 L Potassium 3.8 Chloride 94 L Carbon Dioxide 27 Anion Gap 8 BUN 14 Creatinine 0.67 L Estim Creat Clear Calc 56 Estimated GFR > 60 Glucose 155 H POC Capillary Glucose Calcium 8.7 Troponin I Triglycerides 66 Cholesterol 168 LDL Cholesterol Direct 72 HDL Direct 70 TSH (Reflex) 1.940 02/03/25 07:51 WBC RBC Hgb Hct MCV MCH MCHC RDW Plt Count MPV Immature Gran % (Auto) Neut % (Auto) Lymph % (Auto) [place] % (Auto) Eos % (Auto) Baso % (Auto) Lymph # (Auto) [place] # (Auto) Eos # (Auto) Baso # (Auto) Abs Immat Gran (auto) Absolute Neuts (auto) Absolute Nucleated RBC Nucleated RBC % PT INR APTT Sodium Potassium Chloride Carbon Dioxide Anion Gap BUN Creatinine Estim Creat Clear Calc Estimated GFR Glucose POC Capillary Glucose 166 H Calcium Troponin I Triglycerides Cholesterol LDL Cholesterol Direct HDL Direct TSH (Reflex)
[2025-02-03] MEDS: ACETAMINOPHEN 325 MG TABLET 650 MG PO (09:40)
[2025-02-03] MEDS: ASCORBIC ACID 500 MG TABLET PO (09:41)
[2025-02-03] MEDS: busPIRone HCL 10 MG TABLET PO ×2 (09:41→16:56)
[2025-02-03] MEDS: FERROUS SULFATE 325 MG TABLET DR PO (09:41)
[2025-02-03] MEDS: SODIUM CHLORIDE 1 GM TABLET PO (09:41)
[2025-02-03] MEDS: MEMANTINE 5 MG TABLET PO ×2 (09:41→16:57)
[2025-02-03] MEDS: amLODIPine BESYLATE 10 MG TABLET PO (09:41)
[2025-02-03] MEDS: MAGNESIUM OXIDE 400 MG TABLET PO ×2 (09:41→16:56)
[2025-02-03] MEDS: lisinopriL 20 MG TABLET PO (09:41)
[2025-02-03] MEDS: ESCITALOPRAM OXALATE 10 MG TABLET PO (09:41)
[2025-02-03] MEDS: TAMSULOSIN HCL 0.4 MG CAPSULE PO (09:41)
[2025-02-03] MEDS: ASPIRIN 81 MG ENTERIC TABLET PO (09:41)
[2025-02-03] MEDS: FUROSEMIDE INJ 40 MG/4 ML VIAL 20 MG IV PUSH ×2 (09:42→16:56)
--- NOTE | 2025-02-03 11:03 | PM.PNCARD ---
Progress Note: A&P Assessment and Plan (1) Elevated d-dimer: Code(s): R79.89 - Other specified abnormal findings of blood chemistry Status: Acute Assessment and Plan: V/Q scan low probability (2) Non-ST elevation (NSTEMI) myocardial infarction: Code(s): I21.4 - Non-ST elevation (NSTEMI) myocardial infarction Status: Acute Plan Patient's echo showed LV dysfunction with dyssynchrony, LVEF 34%. Spoke with patient and her daughters. Plan on invasive ischemic workup with cardiac catheterization during this hospitalization. Continue aspirin, statin. Anticoagulation with unfractionated heparin with PTT monitoring. Telemetry monitoring. Subjective Date/time seen: 02/03/25 11:03 Interval history: 02/03/2025-patient reports improvement in dyspnea. No recurrent chest discomfort since hospitalization. At the time of evaluation, patient was laying down in the bed comfortably. Her 2 daughters were in the room. Spoke at length with the patient and her 2 daughters. Review of Systems Review of Systems: General: Positive for fatigue Psychological: Negative for anxiety, depression Ophthalmic: negative for loss of vision ENT: Negative for epistaxis, headaches Allergy and immunology: Negative for hives, nasal congestion Hematologic and lymphatic: Negative for overt bleeding problems Endocrine: Negative for hot flashes, palpitations Respiratory: Negative for cough, hemoptysis Cardiovascular: No recurrent chest pain. Dyspnea has improved Gastrointestinal: Negative for abdominal pain, nausea, vomiting, hematochezia Musculoskeletal: Negative for myalgia, joint pains Neurological: Problems with memory Dermatological: Negative for rash, skin discoloration Exam Narrative: PHYSICAL EXAMINATION: GENERAL: Alert, no distress MENTAL STATUS: affect appropriate to mood EYES: Extraocular movements intact, no pallor EARS: External ears appear normal, hearing grossly normal NOSE: Normal and patent, no discharge MOUTH: Mucous membranes moist, tongue normal NECK: Supple, no JVD CHEST: Good respiratory effort, clear to auscultation HEART: Normal rate, somewhat distant heart sounds, systolic murmur left sternal border and base ABDOMEN: Soft, nontender NEUROLOGICAL: Alert, oriented, normal speech, no gross motor deficits MUSCULOSKELETAL: No major deformity, no amputation EXTREMITIES: No pedal edema, no clubbing, no cyanosis SKIN: no rash on the exposed area, no cyanosis PSYCHIATRIC: Normal mood, appropriate affect Objective Data Vital Signs Vital Signs: Vital Signs - 24 hr 02/02/25 12:20 02/02/25 14:00 02/02/25 16:00 Temperature 36.7 C Pulse Rate 103 H 110 H 117 H Respiratory Rate 14 Blood Pressure 128/73 Pulse Oximetry 93 94 Oxygen Delivery Nasal Cannula Oxygen Flow Rate 2 02/02/25 16:00 02/02/25 16:00 02/02/25 18:00 Temperature 36.7 C Pulse Rate 117 H 108 H 117 H Respiratory Rate 16 Blood Pressure 130/78 Pulse Oximetry 95 Oxygen Delivery Oxygen Flow Rate 02/02/25 20:00 02/02/25 20:00 02/02/25 20:17 Temperature Pulse Rate 106 H Respiratory Rate Blood Pressure Pulse Oximetry 93 93 Oxygen Delivery Nasal Cannula Oxygen Flow Rate 2 2 02/02/25 20:20 02/02/25 22:00 02/03/25 00:00 Temperature 36.3 C L Pulse Rate 107 H 114 H 98 Respiratory Rate 18 Blood Pressure 122/63 Pulse Oximetry 91 Oxygen Delivery Oxygen Flow Rate 02/03/25 00:20 02/03/25 00:23 02/03/25 02:00 Temperature 36.4 C Pulse Rate 90 102 H Respiratory Rate 18 Blood Pressure 111/63 Pulse Oximetry 94 93 Oxygen Delivery Nasal Cannula Oxygen Flow Rate 2 02/03/25 02:25 02/03/25 04:00 02/03/25 04:00 Temperature 36.5 C Pulse Rate 94 95 71 Respiratory Rate 27 H 18 Blood Pressure 118/68 Pulse Oximetry 93 97 Oxygen Delivery Autopap Oxygen Flow Rate 02/03/25 04:10 02/03/25 06:00 02/03/25 08:00 Temperature 36.6 C Pulse Rate 93 90 Respiratory Rate 18 Blood Pressure 124/72 Pulse Oximetry 94 98 Oxygen Delivery Nasal Cannula Oxygen Flow Rate 2 02/03/25 09:53 Temperature Pulse Rate Respiratory Rate Blood Pressure Pulse Oximetry 95 Oxygen Delivery Oxygen Flow Rate 2 Intake/Output Intake/Output: Intake & Output 01/31/25 02/01/25 02/02/25 02/03/25 23:59 23:59 23:59 23:59 Intake Total 240 914.7 Output Total 1500 1500 Balance -1260 -585.3 Meds/Results Medications: Active Medications Generic Name Dose Route Start Last Admin Trade Name Freq PRN Reason Stop Dose Admin Acetaminophen 650 mg 02/02/25 13:24 02/03/25 09:40 Acetaminophen 325 Mg Tablet PO 650 mg Q4H PRN Administration Mild Pain (1-3) or Fever Amlodipine Besylate 10 mg 02/02/25 14:00 02/03/25 09:41 Amlodipine Besylate 10 Mg Tablet PO 10 mg DAILY [facility] Administration Ascorbic Acid 500 mg 02/02/25 14:00 02/03/25 09:41 Ascorbic Acid 500 Mg Tablet PO 500 mg DAILY [facility] Administration Aspirin 81 mg 02/02/25 14:00 02/03/25 09:41 Aspirin 81 Mg Enteric Tablet PO 81 mg DAILY [facility] Administration Atorvastatin Calcium 40 mg 02/02/25 18:00 02/02/25 18:33 Atorvastatin 40 Mg Tablet PO 40 mg QPM [facility] Administration Buspirone HCl 10 mg 02/02/25 17:00 02/03/25 09:41 Buspirone Hcl 10 Mg Tablet PO 10 mg BID [facility] Administration Dextrose 12.5 gm 02/02/25 13:38 Dextrose 50% 25 Gm/50 Ml Syringe IV PUSH PRN PRN Hypoglycemia Protocol Escitalopram Oxalate 10 mg 02/02/25 14:00 02/03/25 09:41 Escitalopram Oxalate 10 Mg Tablet PO 10 mg DAILY [facility] Administration Ferrous Sulfate 325 mg 02/03/25 09:00 02/03/25 09:41 Ferrous Sulfate [address] PO 325 mg DAILY@0800 [facility] Administration Furosemide 20 mg 02/02/25 17:00 02/03/25 09:42 Furosemide Inj 40 Mg/4 Ml Vial IV PUSH 20 mg BID [facility] Administration Glucagon 1 mg 02/02/25 13:38 Glucagon For Inj 1 Mg Vial IM PRN PRN Hypoglycemia Protocol Glucose 15 gm 02/02/25 13:38 Glucose Oral Gel 15 Gm Of Glucse In 37.5 Gm Tube PO PRN PRN Hypoglycemia Protocol Heparin Sodium (Porcine) 4,000 units 02/02/25 14:56 02/03/25 09:41 Heparin Sodium 5,000 Units/Ml Vial IV PUSH 4,000 units PRN PRN Administration aPTT less than 55 seconds Heparin Sodium (Porcine) 2,500 units 02/02/25 14:56 Heparin Sodium 5,000 Units/Ml Vial IV PUSH PRN PRN aPTT 55 - 70 seconds Dextrose 1,000 mls @ 100 mls/hr 02/02/25 13:38 Dextrose 5% 1,000 Ml IVPB PRN PRN Hypoglycemia Protocol Heparin Sodium/Dextrose 25,000 units in 250 mls @ 14 mls/hr 02/02/25 15:00 02/03/25 09:42 Heparin Sodium/D5w 100 Units/Ml IV CONT 1,400 units/hr .[id number] [facility] 14 mls/hr Titration Protocol 1,400 UNITS/HR Insulin Aspart 3 - 6 units 02/02/25 17:00 02/03/25 07:55 Insulin Aspart (*Bkc) 100 Units/Ml SUB-Q Not Given TIDWM [facility] Protocol Insulin Aspart 1 - 3 units 02/03/25 21:00 Insulin Aspart (*Bkc) 100 Units/Ml SUB-Q HS [facility] Protocol Lisinopril 20 mg 02/02/25 14:00 02/03/25 09:41 Lisinopril 20 Mg Tablet PO 20 mg DAILY [facility] Administration Magnesium Oxide 400 mg 02/02/25 17:00 02/03/25 09:41 Magnesium Oxide 400 Mg Tablet PO 400 mg BID [facility] Administration Memantine 5 mg 02/02/25 17:00 02/03/25 09:41 Memantine 5 Mg Tablet PO 5 mg BID [facility] Administration Nitroglycerin 0.4 mg 02/02/25 13:28 Nitroglycerin Sl 0.4 Mg Tablet SUBLINGUAL Q5MIN PRN Chest Pain Non-Formulary Medication 1 each 02/02/25 13:57 Nonformulary Nutritional Supplement XX 02/03/25 13:56 PRN PRN PROTOCOL Ondansetron HCl 4 mg 02/02/25 13:24 Ondansetron Inj 4 Mg/2 Ml Vial IV PUSH Q6H PRN Nausea And Vomiting Perflutren Lipid Microsphere 0 ml 02/02/25 13:24 Perflutren Lipid Microspheres 1.5 Ml Vial Diluted To 10 Ml Total Volume IV PUSH 02/05/25 13:27 ONCE PRN adequate visualization Protocol Sodium Chloride 1 gm 02/02/25 14:00 02/03/25 09:41 Sodium Chloride 1 Gm Tablet PO 1 gm DAILY [facility] Administration Tamsulosin HCl 0.4 mg 02/03/25 09:00 02/03/25 09:41 Tamsulosin Hcl 0.4 Mg Capsule PO 0.4 mg QAM [facility] Administration Radiology Results: ITS Impressions Pulmonary Perfusion Imaging 02/02/25 16:10 IMPRESSION: 1. Low probability for pulmonary embolism. Labs Labs: Laboratory Results - last 24 hr 02/02/25 02/02/25 02/02/25 14:39 15:18 20:57 WBC 5.8 RBC 4.37 Hgb 12.6 Hct 36.6 L MCV 83.8 MCH 28.8 MCHC 34.4 RDW 13.9 Plt Count 322 MPV 9.6 Immature Gran % (Auto) 0.5 Neut % (Auto) 88.7 H Lymph % (Auto) 8.1 L [place] % (Auto) 2.3 L Eos % (Auto) 0.2 Baso % (Auto) 0.2 Lymph # (Auto) 0.47 L [place] # (Auto) 0.1 Eos # (Auto) 0.0 Baso # (Auto) 0.0 Abs Immat Gran (auto) 0.03 Absolute Neuts (auto) 5.1 Absolute Nucleated RBC 0.000 Nucleated RBC % 0.0 PT 13.6 INR 1.0 APTT 22.6 Sodium Potassium Chloride Carbon Dioxide Anion Gap BUN Creatinine Estim Creat Clear Calc Estimated GFR Glucose POC Capillary Glucose 266 H Calcium Troponin I 0.097 H* Triglycerides Cholesterol LDL Cholesterol Direct HDL Direct TSH (Reflex) 02/02/25 02/03/25 02/03/25 22:41 06:32 06:33 WBC 12.7 H RBC 4.04 L Hgb 11.6 L Hct 34.3 L MCV 84.9 MCH 28.7 MCHC 33.8 RDW 14.1 Plt Count 327 MPV 10.3 Immature Gran % (Auto) 0.6 H Neut % (Auto) 76.0 H Lymph % (Auto) 13.0 L [place] % (Auto) 9.9 H Eos % (Auto) 0.2 Baso % (Auto) 0.3 Lymph # (Auto) 1.66 [place] # (Auto) 1.3 H Eos # (Auto) 0.0 Baso # (Auto) 0.0 Abs Immat Gran (auto) 0.08 H Absolute Neuts (auto) 9.7 H Absolute Nucleated RBC 0.000 Nucleated RBC % 0.0 PT INR APTT 53.5 H 54.8 H Sodium 129 L Potassium 3.8 Chloride 94 L Carbon Dioxide 27 Anion Gap 8 BUN 14 Creatinine 0.67 L Estim Creat Clear Calc 56 Estimated GFR > 60 Glucose 155 H POC Capillary Glucose Calcium 8.7 Troponin I Triglycerides 66 Cholesterol 168 LDL Cholesterol Direct 72 HDL Direct 70 TSH (Reflex) 1.940 02/03/25 07:51 WBC RBC Hgb Hct MCV MCH MCHC RDW Plt Count MPV Immature Gran % (Auto) Neut % (Auto) Lymph % (Auto) [place] % (Auto) Eos % (Auto) Baso % (Auto) Lymph # (Auto) [place] # (Auto) Eos # (Auto) Baso # (Auto) Abs Immat Gran (auto) Absolute Neuts (auto) Absolute Nucleated RBC Nucleated RBC % PT INR APTT Sodium Potassium Chloride Carbon Dioxide Anion Gap BUN Creatinine Estim Creat Clear Calc Estimated GFR Glucose POC Capillary Glucose 166 H Calcium Troponin I Triglycerides Cholesterol LDL Cholesterol Direct HDL Direct TSH (Reflex)
[2025-02-03 11:28] LABS: Glucose Point of Care 165 mg/dl (65-105)
[2025-02-03 15:55] LABS: Partial Thromboplastin Time 110.5 Seconds (22.3-36.8)
[2025-02-03 16:21] LABS: Glucose Point of Care 161 mg/dl (65-105)
[2025-02-03] MEDS: HEPARIN SOD/D5W 100 UNITS/ML 25,000 UNITS/250 ML BAG 13 UNITS IV CONT (16:55)
[2025-02-03] MEDS: ATORVASTATIN 40 MG TABLET PO (16:57)
[2025-02-03] MEDS: METOPROLOL TARTRATE 12.5 MG TABLET PO (20:45)
[2025-02-03] MEDS: DOCUSATE SODIUM 100 MG CAPSULE PO (20:46)
[2025-02-03 21:14] LABS: Glucose Point of Care 159 mg/dl (65-105)
[2025-02-03 23:34] LABS: Partial Thromboplastin Time 72.1 Seconds (22.3-36.8)
[2025-02-04] VITALS (16 sets, daily range): BP systolic 110–138; BP diastolic 61–74; PULSE 57–103; RESP 16–20; TEMP 36.4–36.7; O2SAT 93–100
[2025-02-04 06:17] LABS: Partial Thromboplastin Time 48.6 Seconds (22.3-36.8)
[2025-02-04] MEDS: HEPARIN SODIUM 5,000 UNITS/ML VIAL 4000 UNITS IV PUSH (06:51)
[2025-02-04 08:11] LABS: Glucose Point of Care 151 mg/dl (65-105)
--- NOTE | 2025-02-04 08:19 | P.PNIM_ITS ---
Progress Note: A&P Assessment and Plan (1) HTN (hypertension): Qualifiers: Hypertension type: primary hypertension Qualified Code(s): I10 - Essential (primary) hypertension Code(s): I10 - Essential (primary) hypertension Status: Chronic (2) High cholesterol: Code(s): E78.00 - Pure hypercholesterolemia, unspecified Status: Chronic (3) Elevated d-dimer: Code(s): R79.89 - Other specified abnormal findings of blood chemistry Status: Acute (4) Diabetes: Qualifiers: Diabetes mellitus complication status: with hyperglycemia Diabetes mellitus retirement insulin use: without retirement use Diabetes mellitus type: type 2 Qualified Code(s): E11.65 - Type 2 diabetes mellitus with hyperglycemia Code(s): E11.9 - Type 2 diabetes mellitus without complications Status: Chronic (5) Hyponatremia: Code(s): E87.1 - Hypo-osmolality and hyponatremia Status: Chronic Plan NSTEMI Elevated troponin: Code(s): R79.89 - Other specified abnormal findings of blood chemistry Status: Acute Assessment and Plan: Elevated troponin and trending up EKG showed Junctional tachycardia, rate 114, left bundle branch block, awaiting formal read. Received ASA 324 given continue 81 daily (on at home) Nitroglycerin sublingual cardiology consulted, Started heparin gtt, V/Q scan: Low probability of pulmonary embolism Telemetry monitoring Acute combined heart failure X-ray showed Pulmonary edema Qualifiers: Chronicity: acute Qualified Code(s): J81.0 - Acute pulmonary edema Code(s): J81.1 - Chronic pulmonary edema Status: Acute Assessment and Plan: BNP 5009 echocardiogram: Mild LV enlargement, normal wall thickness; moderate LV systolic dysfunction with LV dyssynchrony due to LBBB; ejection fraction calculated at 34%. Diastolic dysfunction with elevated left heart pressures. Normal RV size and systolic function. Moderate left atrial enlargement. Received Lasix IV in ED, continue Lasix 20 mg b.i.d. IV Consult cardiology for further evaluation and treatment monitor I&Os and daily weights (3) Hyponatremia: Code(s): E87.1 - Hypo-osmolality and hyponatremia Status: Chronic Assessment and Plan: Na 128, possible hypovolemia hyponatremia due to CHF fluid overload and diuretic medications Given history previously so low (119) she had a seizure x1 Hold escitalopram and buspar Increase sodium chloride 1 g t.i.d. p.o. 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 Diabetes mellitus type: type 2 Qualified Code(s): E11.65 - Type 2 diabetes mellitus with hyperglycemia Code(s): E11.9 - Type 2 diabetes mellitus without complications Status: Chronic Assessment and Plan: - hypoglycemia protocol - POC blood glucose ACHS - home medication: hold metformin and glimepiride - correct regimen ordered - moderate dose TIDWM and HS, based off BMI - A1C 6.5% in 2019, update Controlled in the target range (5) High cholesterol: Code(s): E78.00 - Pure hypercholesterolemia, unspecified Status: Chronic Assessment and Plan: continue atorvastatin 40 mg daily (6) HTN (hypertension): Qualifiers: Hypertension type: primary hypertension Qualified Code(s): I10 - Essential (primary) hypertension Code(s): I10 - Essential (primary) hypertension Status: Chronic Assessment and Plan: continue home medications: amlodipine 10 mg daily, lisinopril 20 mg daily - monitor Subjective Date/time seen: 02/04/25 08:19 Interval history: I saw examined the patient in present patient family. Patient feels comfortable in bed, denies chest pain, also denies shortness breath, abdomen pain nausea vomiting diarrhea Exam Narrative: GENERAL: Pleasant, in no acute distress. Well-nourished. - EYES: EOMI. Anicteric. - HENT: Moist mucous membranes. - LUNGS: Crackles bilateral base, impro ves - CARDIOVASCULAR: Regular rate and rhyth m. No murmur. No JVD. - ABDOMEN: Soft, non-tender and non-dist ended. No palpable masses. - EXTREMITIES: No edema. Peripheral puls es 2+. Non-tender. - NEUROLOGIC: No focal neurological defi cits. CN II-XII grossly intact. - PSYCHIATRIC: Awake, Alert and oriented x 3. Appropriate mood and affect. - SKIN: No rashes or lesions. Warm. - LYMPH: No cervical lymphadenopathy. Objective Data Vital Signs Vital Signs: Vital Signs - 24 hr 02/03/25 09:53 02/03/25 10:00 02/03/25 12:00 Temperature 98.0 F Pulse Rate 94 86 Respiratory Rate 12 Blood Pressure 109/57 L Pulse Oximetry 95 98 Oxygen Delivery Oxygen Flow Rate 2 02/03/25 12:00 02/03/25 12:00 02/03/25 14:00 Temperature Pulse Rate 84 90 90 Respiratory Rate 12 Blood Pressure Pulse Oximetry 94 Oxygen Delivery Room Air Oxygen Flow Rate 02/03/25 16:00 02/03/25 16:00 02/03/25 16:00 Temperature 98.0 F Pulse Rate 85 90 90 Respiratory Rate 12 12 Blood Pressure 101/48 L Pulse Oximetry 93 95 Oxygen Delivery Room Air Oxygen Flow Rate 02/03/25 18:00 02/03/25 20:00 02/03/25 20:00 Temperature Pulse Rate 90 84 Respiratory Rate Blood Pressure Pulse Oximetry 95 Oxygen Delivery Nasal Cannula Oxygen Flow Rate 1 02/03/25 20:45 02/03/25 21:21 02/03/25 22:00 Temperature 97.8 F Pulse Rate 75 89 79 Respiratory Rate 12 Blood Pressure 121/58 L Pulse Oximetry 95 Oxygen Delivery Oxygen Flow Rate 02/04/25 00:00 02/04/25 00:00 02/04/25 00:00 Temperature 98 F Pulse Rate 75 74 Respiratory Rate 18 Blood Pressure 110/61 Pulse Oximetry 95 100 Oxygen Delivery Nasal Cannula Oxygen Flow Rate 1 02/04/25 02:26 02/04/25 04:00 02/04/25 04:00 Temperature 98.1 F Pulse Rate 57 L 87 Respiratory Rate 18 Blood Pressure 132/67 Pulse Oximetry 95 100 Oxygen Delivery Nasal Cannula Oxygen Flow Rate 1 02/04/25 04:00 02/04/25 06:00 02/04/25 08:00 Temperature 97.9 F Pulse Rate 103 H 79 90 Respiratory Rate 20 Blood Pressure 138/74 Pulse Oximetry 97 Oxygen Delivery Oxygen Flow Rate Intake/Output Intake/Output: Intake & Output 02/01/25 02/02/25 02/03/25 02/04/25 23:59 23:59 23:59 23:59 Intake Total 240 1787.0 181.8 Output Total 1500 3500 2700 Balance -1260 -1713.0 -2518.2 Meds/Results Medications: Active Medications Generic Name Dose Route Start Last Admin Trade Name Freq PRN Reason Stop Dose Admin Acetaminophen 650 mg 02/02/25 13:24 02/03/25 09:40 Acetaminophen 325 Mg Tablet PO 650 mg Q4H PRN Administration Mild Pain (1-3) or Fever Amlodipine Besylate 10 mg 02/02/25 14:00 02/03/25 09:41 Amlodipine Besylate 10 Mg Tablet PO 10 mg DAILY [facility] Administration Ascorbic Acid 500 mg 02/02/25 14:00 02/03/25 09:41 Ascorbic Acid 500 Mg Tablet PO 500 mg DAILY [facility] Administration Aspirin 81 mg 02/02/25 14:00 02/03/25 09:41 Aspirin 81 Mg Enteric Tablet PO 81 mg DAILY [facility]ETH Administration Atorvastatin Calcium 40 mg 02/02/25 18:00 02/03/25 16:57 Atorvastatin 40 Mg Tablet PO 40 mg QPM [facility] Administration Buspirone HCl 10 mg 02/02/25 17:00 02/03/25 16:56 Buspirone Hcl 10 Mg Tablet PO 10 mg BID [facility]ETH Administration Dextrose 12.5 gm 02/02/25 13:38 Dextrose 50% 25 Gm/50 Ml Syringe IV PUSH PRN PRN Hypoglycemia Protocol Docusate Sodium 100 mg 02/03/25 21:00 02/03/25 20:46 Docusate Sodium 100 Mg Capsule PO 100 mg Q12HR [facility] Administration Escitalopram Oxalate 10 mg 02/02/25 14:00 02/03/25 09:41 Escitalopram Oxalate 10 Mg Tablet PO 10 mg DAILY [facility] Administration Ferrous Sulfate 325 mg 02/03/25 09:00 02/03/25 09:41 Ferrous Sulfate [address] PO 325 mg DAILY@0800 EL[facility]ETH Administration Furosemide 20 mg 02/02/25 17:00 02/03/25 16:56 Furosemide Inj 40 Mg/4 Ml Vial IV PUSH 20 mg BID [facility] Administration Glucagon 1 mg 02/02/25 13:38 Glucagon For Inj 1 Mg Vial IM PRN PRN Hypoglycemia Protocol Glucose 15 gm 02/02/25 13:38 Glucose Oral Gel 15 Gm Of Glucse In 37.5 Gm Tube PO PRN PRN Hypoglycemia Protocol Heparin Sodium (Porcine) 4,000 units 02/02/25 14:56 02/04/25 06:51 Heparin Sodium 5,000 Units/Ml Vial IV PUSH 4,000 units PRN PRN Administration aPTT less than 55 seconds Heparin Sodium (Porcine) 2,500 units 02/02/25 14:56 Heparin Sodium 5,000 Units/Ml Vial IV PUSH PRN PRN aPTT 55 - 70 seconds Dextrose 1,000 mls @ 100 mls/hr 02/02/25 13:38 Dextrose 5% 1,000 Ml IVPB PRN PRN Hypoglycemia Protocol Heparin Sodium/Dextrose 25,000 units in 250 mls @ 16 mls/hr 02/02/25 15:00 02/04/25 06:54 Heparin Sodium/D5w 100 Units/Ml IV CONT 1,600 units/hr .[id number] EL[facility]ETH 16 mls/hr Titration Protocol 1,600 UNITS/HR Insulin Aspart 3 - 6 units 02/02/25 17:00 02/03/25 16:57 Insulin Aspart (*Bkc) 100 Units/Ml SUB-Q Not Given TIDWM [facility] Protocol Insulin Aspart 1 - 3 units 02/03/25 21:00 02/03/25 21:57 Insulin Aspart (*Bkc) 100 Units/Ml SUB-Q Not Given HS [facility] Protocol Lisinopril 20 mg 02/02/25 14:00 02/03/25 09:41 Lisinopril 20 Mg Tablet PO 20 mg DAILY [facility] Administration Magnesium Oxide 400 mg 02/02/25 17:00 02/03/25 16:56 Magnesium Oxide 400 Mg Tablet PO 400 mg BID [facility] Administration Memantine 5 mg 02/02/25 17:00 02/03/25 16:57 Memantine 5 Mg Tablet PO 5 mg BID [facility] Administration Metoprolol Tartrate 12.5 mg 02/03/25 21:00 02/03/25 20:45 Metoprolol Tartrate 12.5 Mg Tablet PO 12.5 mg Q12HR [facility] Administration Nitroglycerin 0.4 mg 02/02/25 13:28 Nitroglycerin Sl 0.4 Mg Tablet SUBLINGUAL Q5MIN PRN Chest Pain Ondansetron HCl 4 mg 02/02/25 13:24 Ondansetron Inj 4 Mg/2 Ml Vial IV PUSH Q6H PRN Nausea And Vomiting Perflutren Lipid Microsphere 0 ml 02/02/25 13:24 Perflutren Lipid Microspheres 1.5 Ml Vial Diluted To 10 Ml Total Volume IV PUSH 02/05/25 13:27 ONCE PRN adequate visualization Protocol Sodium Chloride 1 gm 02/02/25 14:00 02/03/25 09:41 Sodium Chloride 1 Gm Tablet PO 1 gm DAILY [facility] Administration Tamsulosin HCl 0.4 mg 02/03/25 09:00 02/03/25 09:41 Tamsulosin Hcl 0.4 Mg Capsule PO 0.4 mg QAM [facility] Administration Radiology Results: ITS Impressions Pulmonary Perfusion Imaging 02/02/25 16:10 IMPRESSION: 1. Low probability for pulmonary embolism. Labs Labs: Laboratory Results - last 24 hr 02/03/25 02/03/25 02/03/25 11:25 15:36 16:18 APTT 110.5 H POC Capillary Glucose 165 H 161 H 02/03/25 02/03/25 02/04/25 21:07 23:11 05:53 APTT 72.1 H 48.6 H POC Capillary Glucose 159 H 02/04/25 07:41 APTT POC Capillary Glucose 151 H
[2025-02-04] MEDS: DOCUSATE SODIUM 100 MG CAPSULE PO ×2 (08:54→20:45)
[2025-02-04] MEDS: ASCORBIC ACID 500 MG TABLET PO (08:54)
[2025-02-04] MEDS: ESCITALOPRAM OXALATE 10 MG TABLET PO (08:54)
[2025-02-04] MEDS: ASPIRIN 81 MG ENTERIC TABLET PO (08:54)
[2025-02-04] MEDS: amLODIPine BESYLATE 10 MG TABLET PO (08:54)
[2025-02-04] MEDS: METOPROLOL TARTRATE 12.5 MG TABLET PO ×2 (08:54→20:46)
[2025-02-04] MEDS: FERROUS SULFATE 325 MG TABLET DR PO (08:54)
[2025-02-04] MEDS: MAGNESIUM OXIDE 400 MG TABLET PO ×2 (08:54→16:47)
[2025-02-04] MEDS: MEMANTINE 5 MG TABLET PO ×2 (08:55→16:47)
[2025-02-04] MEDS: SODIUM CHLORIDE 1 GM TABLET PO ×3 (08:55→16:47)
[2025-02-04] MEDS: FUROSEMIDE INJ 40 MG/4 ML VIAL 20 MG IV PUSH ×2 (08:55→16:48)
[2025-02-04] MEDS: busPIRone HCL 10 MG TABLET PO ×2 (08:55→16:47)
[2025-02-04] MEDS: TAMSULOSIN HCL 0.4 MG CAPSULE PO (08:55)
[2025-02-04] MEDS: lisinopriL 20 MG TABLET PO (08:55)
[2025-02-04 08:58] LABS: Basophils Absolute Auto 0.1 K/mm3 (0.0-0.1); Basophils Percent Auto 1.2 % (0.2-1.2); Eosinophils Absolute Auto 0.1 K/mm3 (0-0.3); Eosinophils Percent Auto 1.5 % (0-4.4); Hematocrit 34.5 % (37.0-47.0); Hemoglobin 11.4 g/dL (12.0-15.0); Immature Granulocyte Absolute 0.03 K/mm3 (0.00-0.031); Immature Granulocyte Percent A 0.4 % (0-0.5); Lymphocytes Absolute Auto 1.93 K/mm3 (0.9-3.2); Lymphocytes Percent Auto 26.3 % (18.3-44.2); Mean Corpuscular Hemoglobin 28.6 pg (26-34); Mean Corpuscular Volume 86.7 fl (80-100); Mean Platelet Volume 10.8 fl (7.4-10.4); Monocytes Absolute Auto 0.6 K/mm3 (0.1-0.6); Monocytes Percent Auto 8.7 % (2.6-8.5); Neutrophils Absolute Auto 4.5 K/mm3 (1.3-6.7); Neutrophils Percent Auto 61.9 % (45.5-73.1); Platelet Count Result 306 k/mm3 (150-375); Red Blood Count 3.98 M/mm3 (4.2-5.4); White Blood Count 7.3 K/mm3 (4.5-10.0)
[2025-02-04 09:15] LABS: Anion Gap 9 mmol/L (4-12); Blood Urea Nitrogen 16 mg/dL (7-17); Calcium 8.5 mg/dL (8.4-10.2); Carbon Dioxide 25 mmol/L (22-30); Chloride 93 mmol/L (98-107); Estimated CRCL calculation 49 ml/min; Estimated Glomerular Filt Rate > 60; Glucose 134 mg/dL (65-110); Potassium 3.9 mmol/L (3.4-5.0); Sodium 127 mmol/L (137-145)
--- NOTE | 2025-02-04 11:01 | P.PNCA_ITS ---
Progress Note: A&P Assessment and Plan (1) Non-ST elevation (NSTEMI) myocardial infarction: Code(s): I21.4 - Non-ST elevation (NSTEMI) myocardial infarction Status: Acute Assessment and Plan: Relatively stable at present without recurrent chest pain since hospitalization. Patient's echo showed LV dysfunction with dyssynchrony, LVEF 34%. Spoke with patient and her daughters. Plan on invasive ischemic workup with cardiac catheterization tomorrow. Patient gives history of questionable dye allergy. She will be pretreated with prednisone and diphenhydramine. Continue aspirin, statin. Anticoagulation with unfractionated heparin with PTT monitoring. Telemetry monitoring. Subjective Date/time seen: 02/04/25 11:01 Interval history: 02/03/2025-patient reports improvement in dyspnea. No recurrent chest discomfort since hospitalization. At the time of evaluation, patient was laying down in the bed comfortably. Her 2 daughters were in the room. Spoke at length with the patient and her 2 daughters. 02/04/2025-patient is lying down comfortably in the bed. Denies any chest pain. Her daughter is in the room. Review of Systems Review of Systems: General: Positive for fatigue Psychological: Negative for anxiety, depression Ophthalmic: negative for loss of vision ENT: Negative for epistaxis, headaches Allergy and immunology: Negative for hives, nasal congestion Hematologic and lymphatic: Negative for overt bleeding problems Endocrine: Negative for hot flashes, palpitations Respiratory: Negative for cough, hemoptysis Cardiovascular: No recurrent chest pain. Dyspnea has improved Gastrointestinal: Negative for abdominal pain, nausea, vomiting, hematochezia Musculoskeletal: Negative for myalgia, joint pains Neurological: Problems with memory Dermatological: Negative for rash, skin discoloration Exam Narrative: PHYSICAL EXAMINATION: GENERAL: Alert, no distress MENTAL STATUS: affect appropriate to mood EYES: Extraocular movements intact, no pallor EARS: External ears appear normal, hearing grossly normal NOSE: Normal and patent, no discharge MOUTH: Mucous membranes moist, tongue normal NECK: Supple, no JVD CHEST: Good respiratory effort, clear to auscultation HEART: Normal rate, somewhat distant heart sounds, systolic murmur left sternal border and base ABDOMEN: Soft, nontender NEUROLOGICAL: Alert, oriented, normal speech, no gross motor deficits MUSCULOSKELETAL: No major deformity, no amputation EXTREMITIES: No pedal edema, no clubbing, no cyanosis SKIN: no rash on the exposed area, no cyanosis PSYCHIATRIC: Normal mood, appropriate affect Objective Data Vital Signs Vital Signs: Vital Signs - 24 hr 02/03/25 12:00 02/03/25 12:00 02/03/25 12:00 Temperature 36.7 C Pulse Rate 86 84 90 Respiratory Rate 12 12 Blood Pressure 109/57 L Pulse Oximetry 98 94 Oxygen Delivery Room Air Oxygen Flow Rate 02/03/25 14:00 02/03/25 16:00 02/03/25 16:00 Temperature 36.7 C Pulse Rate 90 85 90 Respiratory Rate 12 Blood Pressure 101/48 L Pulse Oximetry 93 Oxygen Delivery Oxygen Flow Rate 02/03/25 16:00 02/03/25 18:00 02/03/25 20:00 Temperature Pulse Rate 90 90 Respiratory Rate 12 Blood Pressure Pulse Oximetry 95 95 Oxygen Delivery Room Air Nasal Cannula Oxygen Flow Rate 1 02/03/25 20:00 02/03/25 20:45 02/03/25 21:21 Temperature 36.6 C Pulse Rate 84 75 89 Respiratory Rate 12 Blood Pressure 121/58 L Pulse Oximetry 95 Oxygen Delivery Oxygen Flow Rate 02/03/25 22:00 02/04/25 00:00 02/04/25 00:00 Temperature 36.6 C Pulse Rate 79 75 Respiratory Rate 18 Blood Pressure 110/61 Pulse Oximetry 95 100 Oxygen Delivery Nasal Cannula Oxygen Flow Rate 1 02/04/25 00:00 02/04/25 02:26 02/04/25 04:00 Temperature Pulse Rate 74 57 L Respiratory Rate Blood Pressure Pulse Oximetry 95 Oxygen Delivery Nasal Cannula Oxygen Flow Rate 1 02/04/25 04:00 02/04/25 04:00 02/04/25 06:00 Temperature 36.7 C Pulse Rate 87 103 H 79 Respiratory Rate 18 Blood Pressure 132/67 Pulse Oximetry 100 Oxygen Delivery Oxygen Flow Rate 02/04/25 08:00 Temperature 36.6 C Pulse Rate 90 Respiratory Rate 20 Blood Pressure 138/74 Pulse Oximetry 97 Oxygen Delivery Oxygen Flow Rate Intake/Output Intake/Output: Intake & Output 02/01/25 02/02/25 02/03/25 02/04/25 23:59 23:59 23:59 23:59 Intake Total 240 1787.0 181.8 Output Total 1500 3500 3600 Balance -1260 -1713.0 -3418.2 Meds/Results Medications: Active Medications Generic Name Dose Route Start Last Admin Trade Name Alexa PRN Reason Stop Dose Admin Acetaminophen 650 mg 02/02/25 13:24 02/03/25 09:40 Acetaminophen 325 Mg Tablet PO 650 mg Q4H PRN Administration Mild Pain (1-3) or Fever Amlodipine Besylate 10 mg 02/02/25 14:00 02/04/25 08:54 Amlodipine Besylate 10 Mg Tablet PO 10 mg DAILY [facility] Administration Ascorbic Acid 500 mg 02/02/25 14:00 02/04/25 08:54 Ascorbic Acid 500 Mg Tablet PO 500 mg DAILY [facility] Administration Aspirin 81 mg 02/02/25 14:00 02/04/25 08:54 Aspirin 81 Mg Enteric Tablet PO 81 mg DAILY [facility] Administration Atorvastatin Calcium 40 mg 02/02/25 18:00 02/03/25 16:57 Atorvastatin 40 Mg Tablet PO 40 mg QPM [facility] Administration Buspirone HCl 10 mg 02/02/25 17:00 02/04/25 08:55 Buspirone Hcl 10 Mg Tablet PO 10 mg BID [facility] Administration Dextrose 12.5 gm 02/02/25 13:38 Dextrose 50% 25 Gm/50 Ml Syringe IV PUSH PRN PRN Hypoglycemia Protocol Docusate Sodium 100 mg 02/03/25 21:00 02/04/25 08:54 Docusate Sodium 100 Mg Capsule PO 100 mg Q12HR [facility] Administration Escitalopram Oxalate 10 mg 02/02/25 14:00 02/04/25 08:54 Escitalopram Oxalate 10 Mg Tablet PO 10 mg DAILY [facility] Administration Ferrous Sulfate 325 mg 02/03/25 09:00 02/04/25 08:54 Ferrous Sulfate [address] PO 325 mg DAILY@0800 [facility] Administration Furosemide 20 mg 02/02/25 17:00 02/04/25 08:55 Furosemide Inj 40 Mg/4 Ml Vial IV PUSH 20 mg BID [facility] Administration Glucagon 1 mg 02/02/25 13:38 Glucagon For Inj 1 Mg Vial IM PRN PRN Hypoglycemia Protocol Glucose 15 gm 02/02/25 13:38 Glucose Oral Gel 15 Gm Of Glucse In 37.5 Gm Tube PO PRN PRN Hypoglycemia Protocol Heparin Sodium (Porcine) 4,000 units 02/02/25 14:56 02/04/25 06:51 Heparin Sodium 5,000 Units/Ml Vial IV PUSH 4,000 units PRN PRN Administration aPTT less than 55 seconds Heparin Sodium (Porcine) 2,500 units 02/02/25 14:56 Heparin Sodium 5,000 Units/Ml Vial IV PUSH PRN PRN aPTT 55 - 70 seconds Dextrose 1,000 mls @ 100 mls/hr 02/02/25 13:38 Dextrose 5% 1,000 Ml IVPB PRN PRN Hypoglycemia Protocol Heparin Sodium/Dextrose 25,000 units in 250 mls @ 16 mls/hr 02/02/25 15:00 02/04/25 06:54 Heparin Sodium/D5w 100 Units/Ml IV CONT 1,600 units/hr .[id number] [facility] 16 mls/hr Titration Protocol 1,600 UNITS/HR Insulin Aspart 3 - 6 units 02/02/25 17:00 02/04/25 09:02 Insulin Aspart (*Bkc) 100 Units/Ml SUB-Q Not Given TIDWM [facility] Protocol Insulin Aspart 1 - 3 units 02/03/25 21:00 02/03/25 21:57 Insulin Aspart (*Bkc) 100 Units/Ml SUB-Q Not Given HS [facility] Protocol Lisinopril 20 mg 02/02/25 14:00 02/04/25 08:55 Lisinopril 20 Mg Tablet PO 20 mg DAILY [facility] Administration Magnesium Oxide 400 mg 02/02/25 17:00 02/04/25 08:54 Magnesium Oxide 400 Mg Tablet PO 400 mg BID [facility] Administration Memantine 5 mg 02/02/25 17:00 02/04/25 08:55 Memantine 5 Mg Tablet PO 5 mg BID [facility] Administration Metoprolol Tartrate 12.5 mg 02/03/25 21:00 02/04/25 08:54 Metoprolol Tartrate 12.5 Mg Tablet PO 12.5 mg Q12HR [facility] Administration Nitroglycerin 0.4 mg 02/02/25 13:28 Nitroglycerin Sl 0.4 Mg Tablet SUBLINGUAL Q5MIN PRN Chest Pain Ondansetron HCl 4 mg 02/02/25 13:24 Ondansetron Inj 4 Mg/2 Ml Vial IV PUSH Q6H PRN Nausea And Vomiting Perflutren Lipid Microsphere 0 ml 02/02/25 13:24 Perflutren Lipid Microspheres 1.5 Ml Vial Diluted To 10 Ml Total Volume IV PUSH 02/05/25 13:27 ONCE PRN adequate visualization Protocol Sodium Chloride 1 gm 02/04/25 13:00 Sodium Chloride 1 Gm Tablet PO TID [facility] Tamsulosin HCl 0.4 mg 02/03/25 09:00 02/04/25 08:55 Tamsulosin Hcl 0.4 Mg Capsule PO 0.4 mg QAM [facility] Administration Radiology Results: ITS Impressions Pulmonary Perfusion Imaging 02/02/25 16:10 IMPRESSION: 1. Low probability for pulmonary embolism. Labs Labs: Laboratory Results - last 24 hr 02/03/25 02/03/25 02/03/25 11:25 15:36 16:18 WBC RBC Hgb Hct MCV MCH MCHC RDW Plt Count MPV Immature Gran % (Auto) Neut % (Auto) Lymph % (Auto) Woodruff % (Auto) Eos % (Auto) Baso % (Auto) Lymph # (Auto) Woodruff # (Auto) Eos # (Auto) Baso # (Auto) Abs Immat Gran (auto) Absolute Neuts (auto) Absolute Nucleated RBC Nucleated RBC % APTT 110.5 H Sodium Potassium Chloride Carbon Dioxide Anion Gap BUN Creatinine Estim Creat Clear Calc Estimated GFR Glucose POC Capillary Glucose 165 H 161 H Calcium 02/03/25 02/03/25 02/04/25 21:07 23:11 05:53 WBC 7.3 RBC 3.98 L Hgb 11.4 L Hct 34.5 L MCV 86.7 MCH 28.6 MCHC 33.0 RDW 14.0 Plt Count 306 MPV 10.8 H Immature Gran % (Auto) 0.4 Neut % (Auto) 61.9 Lymph % (Auto) 26.3 Woodruff % (Auto) 8.7 H Eos % (Auto) 1.5 Baso % (Auto) 1.2 Lymph # (Auto) 1.93 Woodruff # (Auto) 0.6 Eos # (Auto) 0.1 Baso # (Auto) 0.1 Abs Immat Gran (auto) 0.03 Absolute Neuts (auto) 4.5 Absolute Nucleated RBC 0.000 Nucleated RBC % 0.0 APTT 72.1 H 48.6 H Sodium 127 L Potassium 3.9 Chloride 93 L Carbon Dioxide 25 Anion Gap 9 BUN 16 Creatinine 0.78 Estim Creat Clear Calc 49 Estimated GFR > 60 Glucose 134 H POC Capillary Glucose 159 H Calcium 8.5 02/04/25 07:41 WBC RBC Hgb Hct MCV MCH MCHC RDW Plt Count MPV Immature Gran % (Auto) Neut % (Auto) Lymph % (Auto) Woodruff % (Auto) Eos % (Auto) Baso % (Auto) Lymph # (Auto) Woodruff # (Auto) Eos # (Auto) Baso # (Auto) Abs Immat Gran (auto) Absolute Neuts (auto) Absolute Nucleated RBC Nucleated RBC % APTT Sodium Potassium Chloride Carbon Dioxide Anion Gap BUN Creatinine Estim Creat Clear Calc Estimated GFR Glucose POC Capillary Glucose 151 H Calcium
[2025-02-04] MEDS: HEPARIN SOD/D5W 100 UNITS/ML 25,000 UNITS/250 ML BAG 16 UNITS IV CONT (11:07)
[2025-02-04 12:14] LABS: Glucose Point of Care 224 mg/dl (65-105)
[2025-02-04] MEDS: INSULIN ASPART (*BKC) 100 UNITS/ML SUB-Q (12:25)
[2025-02-04 13:05] LABS: Partial Thromboplastin Time 122.4 Seconds (22.3-36.8)
[2025-02-04 16:02] LABS: Glucose Point of Care 131 mg/dl (65-105)
[2025-02-04] MEDS: ATORVASTATIN 40 MG TABLET PO (16:55)
[2025-02-04] MEDS: diphenhydrAMINE HCl CAP 25 MG CAPSULE PO (20:47)
[2025-02-04 20:52] LABS: Glucose Point of Care 199 mg/dl (65-105)
[2025-02-04] MEDS: predniSONE 40 MG, predniSONE 10 MG 50 MG PO (20:57)
[2025-02-05] VITALS (30 sets, daily range): BP systolic 99–138; BP diastolic 55–90; PULSE 66–95; RESP 11–20; TEMP 36.4–36.5; O2SAT 95–100
[2025-02-05 01:28] LABS: Partial Thromboplastin Time 90.6 Seconds (22.3-36.8)
[2025-02-05 04:17] LABS: Partial Thromboplastin Time 31.8 Seconds (22.3-36.8)
[2025-02-05 06:09] LABS: Basophils Percent Auto 0.4 % (0.2-1.2); Hematocrit 34.6 % (37.0-47.0); Hemoglobin 11.7 g/dL (12.0-15.0); Immature Granulocyte Absolute 0.04 K/mm3 (0.00-0.031); Immature Granulocyte Percent A 0.6 % (0-0.5); Lymphocytes Absolute Auto 0.67 K/mm3 (0.9-3.2); Lymphocytes Percent Auto 9.6 % (18.3-44.2); Mean Corpuscular HGB Conc 33.8 g/dl (32-36); Mean Corpuscular Hemoglobin 29.2 pg (26-34); Mean Corpuscular Volume 86.3 fl (80-100); Mean Platelet Volume 10.8 fl (7.4-10.4); Monocytes Absolute Auto 0.1 K/mm3 (0.1-0.6); Monocytes Percent Auto 1.6 % (2.6-8.5); Neutrophils Absolute Auto 6.2 K/mm3 (1.3-6.7); Neutrophils Percent Auto 87.8 % (45.5-73.1); Platelet Count Result 308 k/mm3 (150-375); Red Blood Count 4.01 M/mm3 (4.2-5.4); Red Cell Distribution Width 13.8 % (11.5-14.5)
[2025-02-05] MEDS: HEPARIN SODIUM 5,000 UNITS/ML VIAL 4000 UNITS IV PUSH (06:19)
[2025-02-05 07:09] LABS: Anion Gap 6 mmol/L (4-12); Blood Urea Nitrogen 12 mg/dL (7-17); Calcium 8.7 mg/dL (8.4-10.2); Carbon Dioxide 27 mmol/L (22-30); Chloride 97 mmol/L (98-107); Estimated CRCL calculation 52 ml/min; Estimated Glomerular Filt Rate > 60; Glucose 215 mg/dL (65-110); Potassium 3.7 mmol/L (3.4-5.0); Sodium 130 mmol/L (137-145)
[2025-02-05] MEDS: HEPARIN SOD/D5W 100 UNITS/ML 25,000 UNITS/250 ML BAG 18 UNITS IV CONT (07:54)
[2025-02-05 08:03] LABS: Glucose Point of Care 236 mg/dl (65-105)
[2025-02-05] MEDS: predniSONE 40 MG, predniSONE 10 MG 50 MG PO (08:30)
[2025-02-05] MEDS: ESCITALOPRAM OXALATE 10 MG TABLET PO (08:31)
[2025-02-05] MEDS: amLODIPine BESYLATE 10 MG TABLET PO (08:31)
[2025-02-05] MEDS: diphenhydrAMINE HCl CAP 25 MG CAPSULE PO (08:31)
[2025-02-05] MEDS: TAMSULOSIN HCL 0.4 MG CAPSULE PO (08:31)
[2025-02-05] MEDS: SODIUM CHLORIDE 1 GM TABLET PO ×2 (08:31→16:00)
[2025-02-05] MEDS: FERROUS SULFATE 325 MG TABLET DR PO (08:31)
[2025-02-05] MEDS: MAGNESIUM OXIDE 400 MG TABLET PO ×2 (08:31→16:00)
[2025-02-05] MEDS: METOPROLOL TARTRATE 12.5 MG TABLET PO (08:31)
[2025-02-05] MEDS: MEMANTINE 5 MG TABLET PO ×2 (08:32→16:00)
[2025-02-05] MEDS: DOCUSATE SODIUM 100 MG CAPSULE PO ×2 (08:32→20:47)
[2025-02-05] MEDS: ASPIRIN 81 MG ENTERIC TABLET PO (08:32)
[2025-02-05] MEDS: ASCORBIC ACID 500 MG TABLET PO (08:32)
[2025-02-05] MEDS: lisinopriL 20 MG TABLET PO (08:32)
[2025-02-05] MEDS: busPIRone HCL 10 MG TABLET PO ×2 (08:32→16:00)
--- NOTE | 2025-02-05 09:51 | PM.IMPN ---
Progress Note: A&P Assessment and Plan (1) HTN (hypertension): Qualifiers: Hypertension type: primary hypertension Qualified Code(s): I10 - Essential (primary) hypertension Code(s): I10 - Essential (primary) hypertension Status: Chronic (2) High cholesterol: Code(s): E78.00 - Pure hypercholesterolemia, unspecified Status: Chronic (3) Elevated d-dimer: Code(s): R79.89 - Other specified abnormal findings of blood chemistry Status: Acute (4) Diabetes: Qualifiers: Diabetes mellitus complication status: with hyperglycemia Diabetes mellitus mcc insulin use: without mcc use Diabetes mellitus type: type 2 Qualified Code(s): E11.65 - Type 2 diabetes mellitus with hyperglycemia Code(s): E11.9 - Type 2 diabetes mellitus without complications Status: Chronic (5) Hyponatremia: Code(s): E87.1 - Hypo-osmolality and hyponatremia Status: Chronic Plan NSTEMI Elevated troponin: Code(s): R79.89 - Other specified abnormal findings of blood chemistry Status: Acute Assessment and Plan: Elevated troponin and trending up EKG showed Junctional tachycardia, rate 114, left bundle branch block, awaiting formal read. Received ASA 324 given continue 81 daily (on at home) Nitroglycerin sublingual cardiology consulted, Started heparin gtt, V/Q scan: Low probability of pulmonary embolism Telemetry monitoring Cardiac catheterization today showed patent coronary arteries Acute combined heart failure X-ray showed Pulmonary edema Qualifiers: Chronicity: acute Qualified Code(s): J81.0 - Acute pulmonary edema Code(s): J81.1 - Chronic pulmonary edema Status: Acute Assessment and Plan: BNP 5009 echocardiogram: Mild LV enlargement, normal wall thickness; moderate LV systolic dysfunction with LV dyssynchrony due to LBBB; ejection fraction calculated at 34%. Diastolic dysfunction with elevated left heart pressures. Normal RV size and systolic function. Moderate left atrial enlargement. Received Lasix IV in ED, continue Lasix 20 mg b.i.d. IV Consult cardiology for further evaluation and treatment monitor I&Os and daily weights (3) Hyponatremia: Code(s): E87.1 - Hypo-osmolality and hyponatremia Status: Chronic Assessment and Plan: Na 128, possible hypovolemia hyponatremia due to CHF fluid overload and diuretic medications Given history previously so low (119) she had a seizure x1 Hold escitalopram and buspar Increase sodium chloride 1 g t.i.d. p.o. 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 Diabetes mellitus type: type 2 Qualified Code(s): E11.65 - Type 2 diabetes mellitus with hyperglycemia Code(s): E11.9 - Type 2 diabetes mellitus without complications Status: Chronic Assessment and Plan: - hypoglycemia protocol - POC blood glucose ACHS - home medication: hold metformin and glimepiride - correct regimen ordered - moderate dose TIDWM and HS, based off BMI - A1C 6.5% in 2019, update Controlled in the target range (5) High cholesterol: Code(s): E78.00 - Pure hypercholesterolemia, unspecified Status: Chronic Assessment and Plan: continue atorvastatin 40 mg daily (6) HTN (hypertension): Qualifiers: Hypertension type: primary hypertension Qualified Code(s): I10 - Essential (primary) hypertension Code(s): I10 - Essential (primary) hypertension Status: Chronic Assessment and Plan: continue home medications: amlodipine 10 mg daily, lisinopril 20 mg daily - monitor Subjective Date/time seen: 02/05/25 09:51 Interval history: Patient denies chest pain, shortness breath, palpitation, headache, abdomen pain, focal weakness, abnormal sensation. Patient underwent cardiac catheterization without complications. Afebrile blood pressure stable Exam Narrative: GENERAL: Pleasant, in no acute distress. Well-nourished. - EYES: EOMI. Anicteric. - HENT: Moist mucous membranes. - LUNGS: Clear to auscultation bilaterally, no wheezing, rhonchi, or rales. - CARDIOVASCULAR: Regular rate and rhythm. No murmur. No JVD. - ABDOMEN: Soft, non-tender and non-distended. No palpable masses. - EXTREMITIES: No edema. Peripheral pulses 2+. Non-tender. - NEUROLOGIC: No focal neurological deficits. CN II-XII grossly intact. - PSYCHIATRIC: Awake, Alert and oriented x 3. Appropriate mood and affect. - SKIN: No rashes or lesions. Warm. - LYMPH: No cervical lymphadenopathy. Objective Data Vital Signs Vital Signs: Vital Signs - 24 hr 02/04/25 10:00 02/04/25 12:00 02/04/25 12:00 Temperature 97.6 F Pulse Rate 85 76 Respiratory Rate 16 Blood Pressure 112/67 Pulse Oximetry 98 98 Oxygen Delivery Nasal Cannula Oxygen Flow Rate 1 02/04/25 12:00 02/04/25 14:00 02/04/25 15:48 Temperature 98.1 F Pulse Rate 82 90 94 Respiratory Rate 20 Blood Pressure 119/61 Pulse Oximetry 93 Oxygen Delivery Oxygen Flow Rate 02/04/25 16:00 02/04/25 16:00 02/04/25 18:00 Temperature Pulse Rate 100 94 Respiratory Rate Blood Pressure Pulse Oximetry 97 Oxygen Delivery Nasal Cannula Oxygen Flow Rate 1 02/04/25 20:00 02/04/25 20:00 02/04/25 20:00 Temperature 97.6 F Pulse Rate 91 98 Respiratory Rate 20 Blood Pressure 127/70 Pulse Oximetry 97 98 Oxygen Delivery Nasal Cannula Oxygen Flow Rate 1 02/04/25 20:46 02/04/25 22:00 02/04/25 23:17 Temperature 97.7 F Pulse Rate 84 79 85 Respiratory Rate 20 Blood Pressure 120/62 Pulse Oximetry 97 Oxygen Delivery Oxygen Flow Rate 02/04/25 23:40 02/04/25 23:40 02/05/25 00:00 Temperature Pulse Rate Respiratory Rate Blood Pressure Pulse Oximetry 98 98 97 Oxygen Delivery Room Air Nasal Cannula Oxygen Flow Rate 1 02/05/25 00:00 02/05/25 02:00 02/05/25 04:00 Temperature Pulse Rate 76 74 Respiratory Rate Blood Pressure Pulse Oximetry 95 Oxygen Delivery Nasal Cannula Oxygen Flow Rate 1 02/05/25 04:00 02/05/25 05:59 02/05/25 06:00 Temperature 97.7 F Pulse Rate 71 83 87 Respiratory Rate 18 Blood Pressure 129/70 Pulse Oximetry 98 Oxygen Delivery Oxygen Flow Rate 02/05/25 07:50 02/05/25 08:31 Temperature 97.6 F Pulse Rate 86 92 Respiratory Rate 16 Blood Pressure 130/72 Pulse Oximetry 99 Oxygen Delivery Oxygen Flow Rate Intake/Output Intake/Output: Intake & Output 02/02/25 02/03/25 02/04/25 02/05/25 23:59 23:59 23:59 23:59 Intake Total 240 1787.0 1122.9 96.4 Output Total 1500 3500 5450 2800 Balance -1260 -1713.0 -4327.1 -2703.6 Meds/Results Medications: Active Medications Generic Name Dose Route Start Last Admin Trade Name Simonq PRN Reason Stop Dose Admin Acetaminophen 650 mg 02/02/25 13:24 02/03/25 09:40 Acetaminophen 325 Mg Tablet PO 650 mg Q4H PRN Administration Mild Pain (1-3) or Fever Amlodipine Besylate 10 mg 02/02/25 14:00 02/05/25 08:31 Amlodipine Besylate 10 Mg Tablet PO 10 mg DAILY ELIZABETH Administration Ascorbic Acid 500 mg 02/02/25 14:00 02/05/25 08:32 Ascorbic Acid 500 Mg Tablet PO 500 mg DAILY ELIZABETH Administration Aspirin 81 mg 02/02/25 14:00 02/05/25 08:32 Aspirin 81 Mg Enteric Tablet PO 81 mg DAILY ELIZABETH Administration Atorvastatin Calcium 40 mg 02/02/25 18:00 02/04/25 16:55 Atorvastatin 40 Mg Tablet PO 40 mg QPM ELIZABETH Administration Buspirone HCl 10 mg 02/02/25 17:00 02/05/25 08:32 Buspirone Hcl 10 Mg Tablet PO 10 mg BID ELIZABETH Administration Dextrose 12.5 gm 02/02/25 13:38 Dextrose 50% 25 Gm/50 Ml Syringe IV PUSH PRN PRN Hypoglycemia Protocol Docusate Sodium 100 mg 02/03/25 21:00 02/05/25 08:32 Docusate Sodium 100 Mg Capsule PO 100 mg Q12HR ELIZABETH Administration Escitalopram Oxalate 10 mg 02/02/25 14:00 02/05/25 08:31 Escitalopram Oxalate 10 Mg Tablet PO 10 mg DAILY ELIZABETH Administration Ferrous Sulfate 325 mg 02/03/25 09:00 02/05/25 08:31 Ferrous Sulfate [address] PO 325 mg DAILY@0800 ELIZABETH Administration Furosemide 20 mg 02/02/25 17:00 02/05/25 08:32 Furosemide Inj 40 Mg/4 Ml Vial IV PUSH Not Given BID ELIZABETH Glucagon 1 mg 02/02/25 13:38 Glucagon For Inj 1 Mg Vial IM PRN PRN Hypoglycemia Protocol Glucose 15 gm 02/02/25 13:38 Glucose Oral Gel 15 Gm Of Glucse In 37.5 Gm Tube PO PRN PRN Hypoglycemia Protocol Heparin Sodium (Porcine) 4,000 units 02/02/25 14:56 02/05/25 06:19 Heparin Sodium 5,000 Units/Ml Vial IV PUSH 4,000 units PRN PRN Administration aPTT less than 55 seconds Heparin Sodium (Porcine) 2,500 units 02/02/25 14:56 Heparin Sodium 5,000 Units/Ml Vial IV PUSH PRN PRN aPTT 55 - 70 seconds Dextrose 1,000 mls @ 100 mls/hr 02/02/25 13:38 Dextrose 5% 1,000 Ml IVPB PRN PRN Hypoglycemia Protocol Heparin Sodium/Dextrose 25,000 units in 250 mls @ 18 mls/hr 02/02/25 15:00 02/05/25 08:01 Heparin Sodium/D5w 100 Units/Ml IV CONT Not Given .[id number] ELIZABETH Protocol 1,800 UNITS/HR Insulin Aspart 3 - 6 units 02/02/25 17:00 02/05/25 08:11 Insulin Aspart (*Bkc) 100 Units/Ml SUB-Q Not Given TIDWM ELIZABETH Protocol Insulin Aspart 1 - 3 units 02/03/25 21:00 02/04/25 21:18 Insulin Aspart (*Bkc) 100 Units/Ml SUB-Q Not Given HS ELIZABETH Protocol Lisinopril 20 mg 02/02/25 14:00 02/05/25 08:32 Lisinopril 20 Mg Tablet PO 20 mg DAILY ELIZABETH Administration Magnesium Oxide 400 mg 02/02/25 17:00 02/05/25 08:31 Magnesium Oxide 400 Mg Tablet PO 400 mg BID ELIZABETH Administration Memantine 5 mg 02/02/25 17:00 02/05/25 08:32 Memantine 5 Mg Tablet PO 5 mg BID ELIZABETH Administration Metoprolol Tartrate 12.5 mg 02/03/25 21:00 02/05/25 08:31 Metoprolol Tartrate 12.5 Mg Tablet PO 12.5 mg Q12HR ELIZABETH Administration Nitroglycerin 0.4 mg 02/02/25 13:28 Nitroglycerin Sl 0.4 Mg Tablet SUBLINGUAL Q5MIN PRN Chest Pain Ondansetron HCl 4 mg 02/02/25 13:24 Ondansetron Inj 4 Mg/2 Ml Vial IV PUSH Q6H PRN Nausea And Vomiting Perflutren Lipid Microsphere 0 ml 02/02/25 13:24 Perflutren Lipid Microspheres 1.5 Ml Vial Diluted To 10 Ml Total Volume IV PUSH 02/05/25 13:27 ONCE PRN adequate visualization Protocol Sodium Chloride 1 gm 02/04/25 13:00 02/05/25 08:31 Sodium Chloride 1 Gm Tablet PO 1 gm TID ELIZABETH Administration Tamsulosin HCl 0.4 mg 02/03/25 09:00 02/05/25 08:31 Tamsulosin Hcl 0.4 Mg Capsule PO 0.4 mg QAM ELIZABETH Administration Radiology Results: ITS Impressions Pulmonary Perfusion Imaging 02/02/25 16:10 IMPRESSION: 1. Low probability for pulmonary embolism. Labs Labs: Laboratory Results - last 24 hr 02/04/25 02/04/25 02/04/25 11:27 12:46 15:57 WBC RBC Hgb Hct MCV MCH MCHC RDW Plt Count MPV Immature Gran % (Auto) Neut % (Auto) Lymph % (Auto) Josephine % (Auto) Eos % (Auto) Baso % (Auto) Lymph # (Auto) Josephine # (Auto) Eos # (Auto) Baso # (Auto) Abs Immat Gran (auto) Absolute Neuts (auto) Absolute Nucleated RBC Nucleated RBC % APTT 122.4 H Sodium Potassium Chloride Carbon Dioxide Anion Gap BUN Creatinine Estim Creat Clear Calc Estimated GFR Glucose POC Capillary Glucose 224 H 131 H Calcium 02/04/25 02/04/25 02/05/25 19:07 20:38 00:53 WBC RBC Hgb Hct MCV MCH MCHC RDW Plt Count MPV Immature Gran % (Auto) Neut % (Auto) Lymph % (Auto) Josephine % (Auto) Eos % (Auto) Baso % (Auto) Lymph # (Auto) Josephine # (Auto) Eos # (Auto) Baso # (Auto) Abs Immat Gran (auto) Absolute Neuts (auto) Absolute Nucleated RBC Nucleated RBC % APTT 94.0 H 90.6 H Sodium Potassium Chloride Carbon Dioxide Anion Gap BUN Creatinine Estim Creat Clear Calc Estimated GFR Glucose POC Capillary Glucose 199 H Calcium 02/05/25 02/05/25 03:42 07:44 WBC 7.0 RBC 4.01 L Hgb 11.7 L Hct 34.6 L MCV 86.3 MCH 29.2 MCHC 33.8 RDW 13.8 Plt Count 308 MPV 10.8 H Immature Gran % (Auto) 0.6 H Neut % (Auto) 87.8 H Lymph % (Auto) 9.6 L Josephine % (Auto) 1.6 L Eos % (Auto) 0.0 Baso % (Auto) 0.4 Lymph # (Auto) 0.67 L Josephine # (Auto) 0.1 Eos # (Auto) 0.0 Baso # (Auto) 0.0 Abs Immat Gran (auto) 0.04 H Absolute Neuts (auto) 6.2 Absolute Nucleated RBC 0.000 Nucleated RBC % 0.0 APTT 31.8 Sodium 130 L Potassium 3.7 Chloride 97 L Carbon Dioxide 27 Anion Gap 6 BUN 12 Creatinine 0.73 Estim Creat Clear Calc 52 Estimated GFR > 60 Glucose 215 H POC Capillary Glucose 236 H Calcium 8.7
--- NOTE | 2025-02-05 10:34 | WPDHPUPDATE1 ---
History and Physical Update Update Date/Time: 02/05/25 09:36 History and Physical has been reviewed, including an updated exam of the patient. There are NO changes in the patient's condition. Risks, benefits, and alternatives have been discussed and questions answered. Patient agrees to proceed with procedure.
--- NOTE | 2025-02-05 10:35 | WPDMODSED ---
Moderate Sedation Note-Pt Data Patient Data Allergies Allergy/AdvReac Type Severity Reaction Status Date / Time adhesive tape Allergy Unknown BLISTERS Verified 02/02/25 06:32 ampicillin Allergy Unknown rash Verified 02/02/25 06:32 diazepam Allergy Unknown rash Verified 02/02/25 06:32 meperidine Allergy Unknown GI upset Verified 02/02/25 06:32 Penicillins Allergy Unknown rash Verified 02/02/25 06:32 Contrast Media Allergy Unknown unknown Uncoded 02/02/25 06:32 Home Medications ?Medication ?Instructions ?Recorded ?Confirmed ?Type blood sugar diagnostic (Accu-Chek #10 ea 10/05/19 02/02/25 History Guide test strips) blood-glucose meter (Accu-Chek #1 ea 10/05/19 02/02/25 History Guide Me Glucose Meter) lancets (Accu-Chek Softclix #50 ea 10/05/19 02/02/25 History Lancets) metformin 500 mg tablet 500 mg PO BID 10/05/19 02/02/25 History amlodipine 10 mg tablet 10 mg PO DAILY 02/02/25 02/02/25 History ascorbic acid (vitamin C) 500 mg 500 mg PO DAILY 02/02/25 02/02/25 History tablet (Vitamin C) aspirin 81 mg tablet,delayed 81 mg PO DAILY 02/02/25 02/02/25 History release (Vish Low Dose Aspirin) atorvastatin 40 mg tablet 40 mg PO QPM 02/02/25 02/02/25 History buspirone 10 mg tablet 10 mg PO BID 02/02/25 02/02/25 History coenzyme Q10 100 mg capsule (Co 200 mg PO ONCE 02/02/25 02/02/25 History Q-10) escitalopram oxalate 10 mg tablet 10 mg PO DAILY 02/02/25 02/02/25 History ferrous sulfate 325 mg (65 mg 65 mg PO DAILY 02/02/25 02/02/25 History iron) tablet glimepiride 1 mg tablet 1 mg PO DAILY 02/02/25 02/02/25 History lisinopril 20 mg tablet 20 mg PO DAILY 02/02/25 02/02/25 History magnesium 200 mg tablet 400 mg PO BID 02/02/25 02/02/25 History memantine 5 mg tablet 5 mg PO BID 02/02/25 02/02/25 History sodium chloride 1,000 mg soluble 1,000 mg PO DAILY 02/02/25 02/02/25 History tablet Current Medications: Active Medications Acetaminophen (Acetaminophen 325 Mg Tablet) 650 mg PO Q4H PRN PRN Reason: Mild Pain (1-3) or Fever Last Admin: 02/03/25 09:40 Dose: 650 mg Amlodipine Besylate (Amlodipine Besylate 10 Mg Tablet) 10 mg PO DAILY [facility] Last Admin: 02/05/25 08:31 Dose: 10 mg Ascorbic Acid (Ascorbic Acid 500 Mg Tablet) 500 mg PO DAILY [facility] Last Admin: 02/05/25 08:32 Dose: 500 mg Aspirin (Aspirin 81 Mg Enteric Tablet) 81 mg PO DAILY [facility] Last Admin: 02/05/25 08:32 Dose: 81 mg Atorvastatin Calcium (Atorvastatin 40 Mg Tablet) 40 mg PO QPM [facility] Last Admin: 02/04/25 16:55 Dose: 40 mg Buspirone HCl (Buspirone Hcl 10 Mg Tablet) 10 mg PO BID [facility] Last Admin: 02/05/25 08:32 Dose: 10 mg Dextrose (Dextrose 50% 25 Gm/50 Ml Syringe) 12.5 gm IV PUSH PRN PRN; Protocol PRN Reason: Hypoglycemia Docusate Sodium (Docusate Sodium 100 Mg Capsule) 100 mg PO Q12HR [facility] Last Admin: 02/05/25 08:32 Dose: 100 mg Escitalopram Oxalate (Escitalopram Oxalate 10 Mg Tablet) 10 mg PO DAILY [facility] Last Admin: 02/05/25 08:31 Dose: 10 mg Ferrous Sulfate (Ferrous Sulfate [address]) 325 mg PO DAILY@0800 [facility] Last Admin: 02/05/25 08:31 Dose: 325 mg Furosemide (Furosemide Inj 40 Mg/4 Ml Vial) 20 mg IV PUSH BID [facility] Last Admin: 02/05/25 08:32 Dose: Not Given Glucagon (Glucagon For Inj 1 Mg Vial) 1 mg IM PRN PRN; Protocol PRN Reason: Hypoglycemia Glucose (Glucose Oral Gel 15 Gm Of Glucse In 37.5 Gm Tube) 15 gm PO PRN PRN; Protocol PRN Reason: Hypoglycemia Heparin Sodium (Porcine) (Heparin Sodium 5,000 Units/Ml Vial) 4,000 units IV PUSH PRN PRN PRN Reason: aPTT less than 55 seconds Last Admin: 02/05/25 06:19 Dose: 4,000 units Heparin Sodium (Porcine) (Heparin Sodium 5,000 Units/Ml Vial) 2,500 units IV PUSH PRN PRN PRN Reason: aPTT 55 - 70 seconds Dextrose (Dextrose 5% 1,000 Ml) 1,000 mls @ 100 mls/hr IVPB PRN PRN; Protocol PRN Reason: Hypoglycemia Heparin Sodium/Dextrose (Heparin Sodium/D5w 100 Units/Ml) 25,000 units in 250 mls @ 18 mls/hr IV CONT .[id number] [facility]; Protocol Last Admin: 02/05/25 08:01 Dose: Not Given Insulin Aspart (Insulin Aspart (*Bkc) 100 Units/Ml) 3 - 6 units SUB-Q TIDWM [facility]; Protocol Last Admin: 02/05/25 08:11 Dose: Not Given Insulin Aspart (Insulin Aspart (*Bkc) 100 Units/Ml) 1 - 3 units SUB-Q HS [facility]; Protocol Last Admin: 02/04/25 21:18 Dose: Not Given Lisinopril (Lisinopril 20 Mg Tablet) 20 mg PO DAILY [facility] Last Admin: 02/05/25 08:32 Dose: 20 mg Magnesium Oxide (Magnesium Oxide 400 Mg Tablet) 400 mg PO BID [facility] Last Admin: 02/05/25 08:31 Dose: 400 mg Memantine (Memantine 5 Mg Tablet) 5 mg PO BID [facility] Last Admin: 02/05/25 08:32 Dose: 5 mg Metoprolol Tartrate (Metoprolol Tartrate 12.5 Mg Tablet) 12.5 mg PO Q12HR [facility] Last Admin: 02/05/25 08:31 Dose: 12.5 mg Nitroglycerin (Nitroglycerin Sl 0.4 Mg Tablet) 0.4 mg SUBLINGUAL Q5MIN PRN PRN Reason: Chest Pain Ondansetron HCl (Ondansetron Inj 4 Mg/2 Ml Vial) 4 mg IV PUSH Q6H PRN PRN Reason: Nausea And Vomiting Perflutren Lipid Microsphere (Perflutren Lipid Microspheres 1.5 Ml Vial Diluted To 10 Ml Total Volume) 0 ml IV PUSH ONCE PRN; Protocol PRN Reason: adequate visualization Stop: 02/05/25 13:27 Sodium Chloride (Sodium Chloride 1 Gm Tablet) 1 gm PO TID [facility] Last Admin: 02/05/25 08:31 Dose: 1 gm Tamsulosin HCl (Tamsulosin Hcl 0.4 Mg Capsule) 0.4 mg PO QAM [facility] Last Admin: 02/05/25 08:31 Dose: 0.4 mg Sedation/Anesthesia: No previous sedation/anesthesia problems (including family history). [facility] Past Medical History Medical History High cholesterol HTN (hypertension) History of seizure only one time Depression Diabetes Injury of toenail Third degree hemorrhoids Surgical History Surgical History Hx of cholecystectomy History of knee joint replacement H/O neck surgery H/O rotator cuff surgery History of carpal tunnel surgery History of hysterectomy Family History Family History Sibling Hypertension Family history of elevated blood lipids Family history of cardiovascular disease Father Family history of cardiovascular disease Mother Family history of Alzheimer's disease Other Cerebrovascular accident Diabetes mellitus Family history of kidney disease Family history of malignant neoplasm Social History Social History Smoking status: Never smoker Second hand tobacco smoke exposure: No Alcohol intake: never Substance use: never Substance use type: does not use Do You Feel Safe in your Home?: Yes Lack of Transportation: No Lack of Food: Never True Current Housing: I Have Housing Concerned About Future Housing: No Difficulty Paying Gas/Electric Bills: No Difficulty Paying for Meds: No Currently Unemployed: No Education: Associate Degree Difficulty w/ Childcare or Family Care: No Spiritual care concerns: No Mod Sed Physical Exam Physical Exam Pre Procedural Exam: Normal: Lungs, Heart Rate and Heart Rhythm Hours since solid foods: 12 Hours since liquid intake: 12 Mallampati Classification: class II Internal Medicine - PN: Obj Da Vital Signs Vital Signs: Vital Signs - 24 hr 02/04/25 12:00 02/04/25 12:00 02/04/25 12:00 Temperature 36.4 C Pulse Rate 76 82 Respiratory Rate 16 Blood Pressure 112/67 Pulse Oximetry 98 98 Oxygen Delivery Nasal Cannula Oxygen Flow Rate 1 02/04/25 14:00 02/04/25 15:48 02/04/25 16:00 Temperature 36.7 C Pulse Rate 90 94 Respiratory Rate 20 Blood Pressure 119/61 Pulse Oximetry 93 97 Oxygen Delivery Nasal Cannula Oxygen Flow Rate 1 02/04/25 16:00 02/04/25 18:00 02/04/25 20:00 Temperature Pulse Rate 100 94 Respiratory Rate Blood Pressure Pulse Oximetry 97 Oxygen Delivery Nasal Cannula Oxygen Flow Rate 1 02/04/25 20:00 02/04/25 20:00 02/04/25 20:46 Temperature 36.4 C Pulse Rate 91 98 84 Respiratory Rate 20 Blood Pressure 127/70 Pulse Oximetry 98 Oxygen Delivery Oxygen Flow Rate 02/04/25 22:00 02/04/25 23:17 02/04/25 23:40 Temperature 36.5 C Pulse Rate 79 85 Respiratory Rate 20 Blood Pressure 120/62 Pulse Oximetry 97 98 Oxygen Delivery Oxygen Flow Rate 02/04/25 23:40 02/05/25 00:00 02/05/25 00:00 Temperature Pulse Rate 76 Respiratory Rate Blood Pressure Pulse Oximetry 98 97 Oxygen Delivery Room Air Nasal Cannula Oxygen Flow Rate 1 02/05/25 02:00 02/05/25 04:00 02/05/25 04:00 Temperature Pulse Rate 74 71 Respiratory Rate Blood Pressure Pulse Oximetry 95 Oxygen Delivery Nasal Cannula Oxygen Flow Rate 1 02/05/25 05:59 02/05/25 06:00 02/05/25 07:50 Temperature 36.5 C 36.4 C Pulse Rate 83 87 86 Respiratory Rate 18 16 Blood Pressure 129/70 130/72 Pulse Oximetry 98 99 Oxygen Delivery Oxygen Flow Rate 02/05/25 08:31 Temperature Pulse Rate 92 Respiratory Rate Blood Pressure Pulse Oximetry Oxygen Delivery Oxygen Flow Rate Intake/Output Intake/Output: Intake & Output 02/02/25 02/03/25 02/04/25 02/05/25 23:59 23:59 23:59 23:59 Intake Total 240 1787.0 1122.9 96.4 Output Total 1500 3500 5450 2800 Balance -1260 -1713.0 -4327.1 -2703.6 Meds/Results Medications: Active Medications Generic Name Dose Route Start Last Admin Trade Name Freq PRN Reason Stop Dose Admin Acetaminophen 650 mg 02/02/25 13:24 02/03/25 09:40 Acetaminophen 325 Mg Tablet PO 650 mg Q4H PRN Administration Mild Pain (1-3) or Fever Amlodipine Besylate 10 mg 02/02/25 14:00 02/05/25 08:31 Amlodipine Besylate 10 Mg Tablet PO 10 mg DAILY [facility] Administration Ascorbic Acid 500 mg 02/02/25 14:00 02/05/25 08:32 Ascorbic Acid 500 Mg Tablet PO 500 mg DAILY [facility] Administration Aspirin 81 mg 02/02/25 14:00 02/05/25 08:32 Aspirin 81 Mg Enteric Tablet PO 81 mg DAILY [facility] Administration Atorvastatin Calcium 40 mg 02/02/25 18:00 02/04/25 16:55 Atorvastatin 40 Mg Tablet PO 40 mg QPM [facility] Administration Buspirone HCl 10 mg 02/02/25 17:00 02/05/25 08:32 Buspirone Hcl 10 Mg Tablet PO 10 mg BID [facility] Administration Dextrose 12.5 gm 02/02/25 13:38 Dextrose 50% 25 Gm/50 Ml Syringe IV PUSH PRN PRN Hypoglycemia Protocol Docusate Sodium 100 mg 02/03/25 21:00 02/05/25 08:32 Docusate Sodium 100 Mg Capsule PO 100 mg Q12HR [facility] Administration Escitalopram Oxalate 10 mg 02/02/25 14:00 02/05/25 08:31 Escitalopram Oxalate 10 Mg Tablet PO 10 mg DAILY [facility] Administration Ferrous Sulfate 325 mg 02/03/25 09:00 02/05/25 08:31 Ferrous Sulfate [address] PO 325 mg DAILY@0800 [facility] Administration Furosemide 20 mg 02/02/25 17:00 02/05/25 08:32 Furosemide Inj 40 Mg/4 Ml Vial IV PUSH Not Given BID [facility] Glucagon 1 mg 02/02/25 13:38 Glucagon For Inj 1 Mg Vial IM PRN PRN Hypoglycemia Protocol Glucose 15 gm 02/02/25 13:38 Glucose Oral Gel 15 Gm Of Glucse In 37.5 Gm Tube PO PRN PRN Hypoglycemia Protocol Heparin Sodium (Porcine) 4,000 units 02/02/25 14:56 02/05/25 06:19 Heparin Sodium 5,000 Units/Ml Vial IV PUSH 4,000 units PRN PRN Administration aPTT less than 55 seconds Heparin Sodium (Porcine) 2,500 units 02/02/25 14:56 Heparin Sodium 5,000 Units/Ml Vial IV PUSH PRN PRN aPTT 55 - 70 seconds Dextrose 1,000 mls @ 100 mls/hr 02/02/25 13:38 Dextrose 5% 1,000 Ml IVPB PRN PRN Hypoglycemia Protocol Heparin Sodium/Dextrose 25,000 units in 250 mls @ 18 mls/hr 02/02/25 15:00 02/05/25 08:01 Heparin Sodium/D5w 100 Units/Ml IV CONT Not Given .[id number] [facility] Protocol 1,800 UNITS/HR Insulin Aspart 3 - 6 units 02/02/25 17:00 02/05/25 08:11 Insulin Aspart (*Bkc) 100 Units/Ml SUB-Q Not Given TIDWM [facility] Protocol Insulin Aspart 1 - 3 units 02/03/25 21:00 02/04/25 21:18 Insulin Aspart (*Bkc) 100 Units/Ml SUB-Q Not Given HS [facility] Protocol Lisinopril 20 mg 02/02/25 14:00 02/05/25 08:32 Lisinopril 20 Mg Tablet PO 20 mg DAILY [facility] Administration Magnesium Oxide 400 mg 02/02/25 17:00 02/05/25 08:31 Magnesium Oxide 400 Mg Tablet PO 400 mg BID [facility] Administration Memantine 5 mg 02/02/25 17:00 02/05/25 08:32 Memantine 5 Mg Tablet PO 5 mg BID [facility] Administration Metoprolol Tartrate 12.5 mg 02/03/25 21:00 02/05/25 08:31 Metoprolol Tartrate 12.5 Mg Tablet PO 12.5 mg Q12HR [facility] Administration Nitroglycerin 0.4 mg 02/02/25 13:28 Nitroglycerin Sl 0.4 Mg Tablet SUBLINGUAL Q5MIN PRN Chest Pain Ondansetron HCl 4 mg 02/02/25 13:24 Ondansetron Inj 4 Mg/2 Ml Vial IV PUSH Q6H PRN Nausea And Vomiting Perflutren Lipid Microsphere 0 ml 02/02/25 13:24 Perflutren Lipid Microspheres 1.5 Ml Vial Diluted To 10 Ml Total Volume IV PUSH 02/05/25 13:27 ONCE PRN adequate visualization Protocol Sodium Chloride 1 gm 02/04/25 13:00 02/05/25 08:31 Sodium Chloride 1 Gm Tablet PO 1 gm TID [facility] Administration Tamsulosin HCl 0.4 mg 02/03/25 09:00 02/05/25 08:31 Tamsulosin Hcl 0.4 Mg Capsule PO 0.4 mg QAM [facility] Administration Radiology Results: ITS Impressions Pulmonary Perfusion Imaging 02/02/25 16:10 IMPRESSION: 1. Low probability for pulmonary embolism. Labs 02/05/25 03:42 02/05/25 03:42 Labs: Laboratory Results - last 24 hr 02/04/25 02/04/25 02/04/25 11:27 12:46 15:57 WBC RBC Hgb Hct MCV MCH MCHC RDW Plt Count MPV Immature Gran % (Auto) Neut % (Auto) Lymph % (Auto) Dougherty % (Auto) Eos % (Auto) Baso % (Auto) Lymph # (Auto) Dougherty # (Auto) Eos # (Auto) Baso # (Auto) Abs Immat Gran (auto) Absolute Neuts (auto) Absolute Nucleated RBC Nucleated RBC % APTT 122.4 H Sodium Potassium Chloride Carbon Dioxide Anion Gap BUN Creatinine Estim Creat Clear Calc Estimated GFR Glucose POC Capillary Glucose 224 H 131 H Calcium 02/04/25 02/04/25 02/05/25 19:07 20:38 00:53 WBC RBC Hgb Hct MCV MCH MCHC RDW Plt Count MPV Immature Gran % (Auto) Neut % (Auto) Lymph % (Auto) Dougherty % (Auto) Eos % (Auto) Baso % (Auto) Lymph # (Auto) Dougherty # (Auto) Eos # (Auto) Baso # (Auto) Abs Immat Gran (auto) Absolute Neuts (auto) Absolute Nucleated RBC Nucleated RBC % APTT 94.0 H 90.6 H Sodium Potassium Chloride Carbon Dioxide Anion Gap BUN Creatinine Estim Creat Clear Calc Estimated GFR Glucose POC Capillary Glucose 199 H Calcium 02/05/25 02/05/25 03:42 07:44 WBC 7.0 RBC 4.01 L Hgb 11.7 L Hct 34.6 L MCV 86.3 MCH 29.2 MCHC 33.8 RDW 13.8 Plt Count 308 MPV 10.8 H Immature Gran % (Auto) 0.6 H Neut % (Auto) 87.8 H Lymph % (Auto) 9.6 L Dougherty % (Auto) 1.6 L Eos % (Auto) 0.0 Baso % (Auto) 0.4 Lymph # (Auto) 0.67 L Dougherty # (Auto) 0.1 Eos # (Auto) 0.0 Baso # (Auto) 0.0 Abs Immat Gran (auto) 0.04 H Absolute Neuts (auto) 6.2 Absolute Nucleated RBC 0.000 Nucleated RBC % 0.0 APTT 31.8 Sodium 130 L Potassium 3.7 Chloride 97 L Carbon Dioxide 27 Anion Gap 6 BUN 12 Creatinine 0.73 Estim Creat Clear Calc 52 Estimated GFR > 60 Glucose 215 H POC Capillary Glucose 236 H Calcium 8.7 ASA Classification/Sedation ASA Classification/Sedation ASA Class: III Emergent: No Risks: Risks, benefits and alternatives explained and patient/family accepted plan for sedation. Patient re-evaluated immediately prior to sedation.
--- NOTE | 2025-02-05 11:12 | P.PCNCC_ITS ---
Cardiac Cath Procedure Note Date of procedure:: 02/05/25 Performing physician:: CATHETERIZATION LABORATORY REPORT Procedure Date: 02/05/2025 Referring Physician: Dr. Parada Anesthesia: Versed and Fentanyl were ordered and given in my presence at 1037, procedure ended at 1103. Supervision of nurse monitored moderate sedation with 25mg Benadryl and 50mcg Fentanyl was provided for 26 minutes. Pre-op Diagnosis: Acute systolic heart failure Post-op Diagnosis: Acute systolic heart failure Procedure(s): Left heart catheterization with coronary angiography Access Site: Right radial artery Brief History and Clinical Indications: 74-year-old woman with diabetes, hypertension, and hyperlipidemia who presented with shortness of breath admitted for acute new onset systolic heart failure is now here to define her coronary anatomy. All risks, benefits and alternatives to left heart catheterization with or without percutaneous coronary intervention was discussed at length with the patient. Risk of complications including but not limited to bleeding, infection, arrhythmia, stroke, worsening kidney function, blood loss, groin hematoma, limb loss, emergency coronary artery bypass grafting, and even were discussed with the patient and all questions were answered. The patient understood and wished to proceed. Time out called, patient name, date of , medical record number, allergies, procedure performed, identify Hazardous Waste Material Technician, patient and staff member concurred with accurate data, procedure carried on. Findings: LEFT HEART CATHETERIZATION FINDINGS: 1. Left main: The left main coronary artery is widely patent without any significant obstructive disease. 2. Left anterior descending: The LAD and the diagonal branches have diffuse 10- 20% stenosis. 3. Left circumflex: The left circumflex artery and the main marginal branches have diffuse 10-20% stenosis. 4. Right coronary artery: The RCA is a large dominant vessel and is without angiographic stenosis. 5. Left ventricle: A. End-diastolic pressure 43 mmHg. B. LV gram deferred. C. No significant gradient across aortic valve on catheter pullback. 6. Opening AO pressure 140/86 and closing AO pressure 1103 Description of Procedure: Informed consent signed and placed in the chart. Patient transferred to cemetery laborer room. Prepped and draped in usual sterile fashion. 2% lidocaine injected subcutaneously in right wrist area. 22-gauge venipuncture catheter used to access the right radial artery with the Seldinger technique. 6-FR slender sheath placed in right radial artery. Nitroglycerin 200mcg, Verapamil 2.5mg, and Heparin 5000U was given intraarterial through the sheath. J wire advanced under fluoroscopy 5F JR4 diagnostic catheter engaged Left Main Coronary Artery. 5F JL3.5 diagnostic catheter engaged Right Coronary Artery Multiple orthogonal angiogram obtained and reviewed 5F Pigtail diagnostic catheter crossed aortic valve to obtain LVEDP, LV angiogram deferred. Hemostasis was achieved by application of TR band. Assessment: Nonobstructive coronary artery disease Post Operative Condition: Stable No significant blood loss Disposition: Floor Plan: Aspirin 81 mg p.o. daily and continue high-intensity statins Continue IV diuresis today and most likely transition to Lasix 20 mg p.o. daily tomorrow Add guideline directed medical therapy for systolic heart failure Gus Huggins Interventional Cardiology
[2025-02-05] MEDS: SODIUM CHLORIDE 0.9% IV 1,000 ML 125 ML IV CONT (14:01)
[2025-02-05 14:02] LABS: Glucose Point of Care 310 mg/dl (65-105)
[2025-02-05] MEDS: FUROSEMIDE INJ 40 MG/4 ML VIAL 20 MG IV PUSH (15:59)
[2025-02-05 16:00] LABS: Glucose Point of Care 325 mg/dl (65-105)
[2025-02-05] MEDS: ATORVASTATIN 40 MG TABLET PO (16:00)
[2025-02-05] MEDS: INSULIN ASPART (*BKC) 100 UNITS/ML SUB-Q ×2 (16:00→20:48)
[2025-02-05] MEDS: ACETAMINOPHEN 325 MG TABLET 650 MG PO (20:46)
[2025-02-05] MEDS: carvediloL 12.5 MG TABLET PO (20:47)
[2025-02-05 21:05] LABS: Glucose Point of Care 257 mg/dl (65-105)
[2025-02-06] VITALS (14 sets, daily range): BP systolic 115–125; BP diastolic 60–75; PULSE 59–87; RESP 16–22; TEMP 36.4–36.8; O2SAT 97–100
[2025-02-06] MEDS: WATER FOR IRRIGATION, STERILE 1,000 ML BOTTLE 1000 ML (00:58)
[2025-02-06 04:38] LABS: Basophils Percent Auto 0.5 % (0.2-1.2); Eosinophils Absolute Auto 0.1 K/mm3 (0-0.3); Eosinophils Percent Auto 0.8 % (0-4.4); Hematocrit 31.3 % (37.0-47.0); Hemoglobin 10.7 g/dL (12.0-15.0); Immature Granulocyte Absolute 0.03 K/mm3 (0.00-0.031); Immature Granulocyte Percent A 0.3 % (0-0.5); Lymphocytes Absolute Auto 2.02 K/mm3 (0.9-3.2); Lymphocytes Percent Auto 22.9 % (18.3-44.2); Mean Corpuscular HGB Conc 34.2 g/dl (32-36); Mean Corpuscular Hemoglobin 29.2 pg (26-34); Mean Corpuscular Volume 85.3 fl (80-100); Mean Platelet Volume 10.3 fl (7.4-10.4); Monocytes Absolute Auto 0.7 K/mm3 (0.1-0.6); Monocytes Percent Auto 7.9 % (2.6-8.5); Neutrophils Percent Auto 67.6 % (45.5-73.1); Platelet Count Result 282 k/mm3 (150-375); Red Blood Count 3.67 M/mm3 (4.2-5.4); Red Cell Distribution Width 13.5 % (11.5-14.5); White Blood Count 8.8 K/mm3 (4.5-10.0)
[2025-02-06 04:50] LABS: Anion Gap 8 mmol/L (4-12); Blood Urea Nitrogen 14 mg/dL (7-17); Calcium 8.6 mg/dL (8.4-10.2); Carbon Dioxide 27 mmol/L (22-30); Chloride 93 mmol/L (98-107); Estimated CRCL calculation 51 ml/min; Estimated Glomerular Filt Rate > 60; Glucose 153 mg/dL (65-110); Sodium 128 mmol/L (137-145)
[2025-02-06 07:57] LABS: Glucose Point of Care 146 mg/dl (65-105)
--- NOTE | 2025-02-06 09:17 | P.PNIM_ITS ---
Progress Note: A&P Assessment and Plan (1) HTN (hypertension): Qualifiers: Hypertension type: primary hypertension Qualified Code(s): I10 - Essential (primary) hypertension Code(s): I10 - Essential (primary) hypertension Status: Chronic (2) High cholesterol: Code(s): E78.00 - Pure hypercholesterolemia, unspecified Status: Chronic (3) Elevated d-dimer: Code(s): R79.89 - Other specified abnormal findings of blood chemistry Status: Acute (4) Diabetes: Qualifiers: Diabetes mellitus complication status: with hyperglycemia Diabetes mellitus shelter insulin use: without shelter use Diabetes mellitus type: type 2 Qualified Code(s): E11.65 - Type 2 diabetes mellitus with hyperglycemia Code(s): E11.9 - Type 2 diabetes mellitus without complications Status: Chronic (5) Hyponatremia: Code(s): E87.1 - Hypo-osmolality and hyponatremia Status: Chronic Plan NSTEMI Elevated troponin: Code(s): R79.89 - Other specified abnormal findings of blood chemistry Status: Acute Assessment and Plan: Elevated troponin and trending up EKG showed Junctional tachycardia, rate 114, left bundle branch block, awaiting formal read. Received ASA 324 given continue 81 daily (on at home) Nitroglycerin sublingual cardiology consulted, Started heparin gtt, V/Q scan: Low probability of pulmonary embolism Telemetry monitoring Cardiac catheterization today showed patent coronary arteries Acute combined heart failure X-ray showed Pulmonary edema Qualifiers: Chronicity: acute Qualified Code(s): J81.0 - Acute pulmonary edema Code(s): J81.1 - Chronic pulmonary edema Status: Acute Assessment and Plan: BNP 5009 echocardiogram: Mild LV enlargement, normal wall thickness; moderate LV systolic dysfunction with LV dyssynchrony due to LBBB; ejection fraction calculated at 34%. Diastolic dysfunction with elevated left heart pressures. Normal RV size and systolic function. Moderate left atrial enlargement. Received Lasix IV in ED, continue Lasix 20 mg b.i.d. IV (3) Hyponatremia: Code(s): E87.1 - Hypo-osmolality and hyponatremia Status: Chronic Assessment and Plan: Na 128, possible hypovolemia hyponatremia due to CHF fluid overload and diuretic medications Given history previously so low (119) she had a seizure x1 Hold escitalopram and buspar Increase sodium chloride 1 g t.i.d. p.o. on 02/04 Sodium level stable (4) Diabetes: Qualifiers: Diabetes mellitus complication status: with hyperglycemia Diabetes mellitus shelter insulin use: without shelter use Diabetes mellitus type: type 2 Qualified Code(s): E11.65 - Type 2 diabetes mellitus with hyperglycemia Code(s): E11.9 - Type 2 diabetes mellitus without complications Status: Chronic Assessment and Plan: - hypoglycemia protocol - POC blood glucose ACHS - home medication: hold metformin and glimepiride - correct regimen ordered - moderate dose TIDWM and HS, based off BMI - A1C 6.5% in 2019, update Controlled in the target range (5) High cholesterol: Code(s): E78.00 - Pure hypercholesterolemia, unspecified Status: Chronic Assessment and Plan: continue atorvastatin 40 mg daily (6) HTN (hypertension): Qualifiers: Hypertension type: primary hypertension Qualified Code(s): I10 - Essential (primary) hypertension Code(s): I10 - Essential (primary) hypertension Status: Chronic Assessment and Plan: continue home medications: amlodipine 10 mg daily, lisinopril 20 mg daily - monitor Subjective Date/time seen: 02/06/25 09:17 Interval history: Patient denies chest pain, shortness breath, palpitation, headache, abdomen pain, focal weakness, abnormal sensation. Afebrile blood pressure stable Exam Narrative: GENERAL: Pleasant, in no acute distress. Well-nourished. - EYES: EOMI. Anicteric. - HENT: Moist mucous membranes. - LUNGS: Clear to auscultation bilateral ly, no wheezing, rhonchi, or rales. - CARDIOVASCULAR: Regular rate and rhyth m. No murmur. No JVD. - ABDOMEN: Soft, non-tender and non-dist ended. No palpable masses. - EXTREMITIES: No edema. Peripheral puls es 2+. Non-tender. - NEUROLOGIC: No focal neurological defi cits. CN II-XII grossly intact. - PSYCHIATRIC: Awake, Alert and oriented x 3. Appropriate mood and affect. - SKIN: No rashes or lesions. Warm. - LYMPH: No cervical lymphadenopathy. Objective Data Vital Signs Vital Signs: Vital Signs - 24 hr 02/05/25 10:00 02/05/25 11:15 02/05/25 11:15 Temperature Pulse Rate 86 83 Pulse Rate [Right Radial Palpation] 83 Respiratory Rate 20 Blood Pressure 125/68 Pulse Oximetry 98 Oxygen Delivery Room Air Fraction of Inspired Oxygen 02/05/25 11:30 02/05/25 11:30 02/05/25 11:45 Temperature Pulse Rate 80 Pulse Rate [Right Radial Palpation] 83 95 Respiratory Rate 20 Blood Pressure 128/73 Pulse Oximetry 98 Oxygen Delivery Room Air Fraction of Inspired Oxygen 02/05/25 11:45 02/05/25 12:00 02/05/25 12:00 Temperature Pulse Rate 95 86 Pulse Rate [Right Radial Palpation] 86 Respiratory Rate 17 18 Blood Pressure 127/75 128/70 Pulse Oximetry 96 97 Oxygen Delivery Room Air Room Air Fraction of Inspired Oxygen 02/05/25 12:15 02/05/25 12:15 02/05/25 12:30 Temperature Pulse Rate 84 Pulse Rate [Right Radial Palpation] 84 83 Respiratory Rate 18 Blood Pressure 124/69 Pulse Oximetry 98 Oxygen Delivery Room Air Fraction of Inspired Oxygen 02/05/25 12:30 02/05/25 12:45 02/05/25 12:45 Temperature Pulse Rate 83 92 Pulse Rate [Right Radial Palpation] 92 Respiratory Rate 18 20 Blood Pressure 123/85 123/85 Pulse Oximetry 99 98 Oxygen Delivery Room Air Room Air Fraction of Inspired Oxygen 02/05/25 13:00 02/05/25 13:00 02/05/25 13:15 Temperature Pulse Rate 89 Pulse Rate [Right Radial Palpation] 89 81 Respiratory Rate 19 Blood Pressure 108/62 Pulse Oximetry 98 Oxygen Delivery Room Air Fraction of Inspired Oxygen 02/05/25 13:15 02/05/25 13:29 02/05/25 13:29 Temperature Pulse Rate 81 79 Pulse Rate [Right Radial Palpation] 79 Respiratory Rate 20 18 Blood Pressure 108/62 99/79 L Pulse Oximetry 97 98 Oxygen Delivery Room Air Room Air Fraction of Inspired Oxygen 02/05/25 13:45 02/05/25 13:45 02/05/25 14:00 Temperature Pulse Rate 82 Pulse Rate [Right Radial Palpation] 82 79 Respiratory Rate 14 Blood Pressure 113/60 Pulse Oximetry 100 Oxygen Delivery Room Air Fraction of Inspired Oxygen 02/05/25 14:00 02/05/25 14:15 02/05/25 14:15 Temperature Pulse Rate 79 81 Pulse Rate [Right Radial Palpation] 81 Respiratory Rate 16 19 Blood Pressure 105/55 L 114/61 Pulse Oximetry 97 100 Oxygen Delivery Room Air Room Air Fraction of Inspired Oxygen 02/05/25 14:45 02/05/25 14:45 02/05/25 15:15 Temperature Pulse Rate 76 75 Pulse Rate [Right Radial Palpation] 76 Respiratory Rate 11 L 19 Blood Pressure 109/59 L 108/67 Pulse Oximetry 99 98 Oxygen Delivery Room Air Room Air Fraction of Inspired Oxygen 02/05/25 15:15 02/05/25 15:46 02/05/25 18:00 Temperature 97.6 F Pulse Rate 86 83 Pulse Rate [Right Radial Palpation] 75 Respiratory Rate 16 Blood Pressure 124/62 Pulse Oximetry 100 Oxygen Delivery Fraction of Inspired Oxygen 02/05/25 20:00 02/05/25 20:00 02/05/25 20:00 Temperature 97.6 F Pulse Rate 86 92 Pulse Rate [Right Radial Palpation] Respiratory Rate 16 Blood Pressure 138/90 Pulse Oximetry 100 Oxygen Delivery Room Air Fraction of Inspired Oxygen 02/05/25 20:47 02/05/25 22:00 02/05/25 22:37 Temperature Pulse Rate 95 66 67 Pulse Rate [Right Radial Palpation] Respiratory Rate 20 Blood Pressure Pulse Oximetry 95 Oxygen Delivery Autopap Fraction of Inspired Oxygen 02/06/25 00:00 02/06/25 00:00 02/06/25 00:00 Temperature 97.6 F Pulse Rate 74 59 L Pulse Rate [Right Radial Palpation] Respiratory Rate 16 Blood Pressure 122/62 Pulse Oximetry 97 Oxygen Delivery Room Air Fraction of Inspired Oxygen 02/06/25 02:00 02/06/25 02:02 02/06/25 04:00 Temperature 97.6 F Pulse Rate 79 78 Pulse Rate [Right Radial Palpation] Respiratory Rate 16 Blood Pressure 120/60 Pulse Oximetry 97 97 Oxygen Delivery Room Air Fraction of Inspired Oxygen 21 02/06/25 04:00 02/06/25 04:00 02/06/25 06:00 Temperature Pulse Rate 74 68 Pulse Rate [Right Radial Palpation] Respiratory Rate Blood Pressure Pulse Oximetry Oxygen Delivery Room Air Fraction of Inspired Oxygen 02/06/25 07:30 Temperature 98.3 F Pulse Rate 87 Pulse Rate [Right Radial Palpation] Respiratory Rate 16 Blood Pressure 115/65 Pulse Oximetry 98 Oxygen Delivery Fraction of Inspired Oxygen Intake/Output Intake/Output: Intake & Output 02/03/25 02/04/25 02/05/25 02/06/25 23:59 23:59 23:59 23:59 Intake Total 1787.0 1122.9 864.3 600 Output Total 3500 5450 3625 1200 Balance -1713.0 -4327.1 -2760.7 -600 Meds/Results Medications: Active Medications Generic Name Dose Route Start Last Admin Trade Name Freq PRN Reason Stop Dose Admin Acetaminophen 650 mg 02/02/25 13:24 02/05/25 20:46 Acetaminophen 325 Mg Tablet PO 650 mg Q4H PRN Administration Mild Pain (1-3) or Fever Ascorbic Acid 500 mg 02/02/25 14:00 02/05/25 08:32 Ascorbic Acid 500 Mg Tablet PO 500 mg DAILY ELIZ[facility]ETH Administration Aspirin 81 mg 02/02/25 14:00 02/05/25 08:32 Aspirin 81 Mg Enteric Tablet PO 81 mg DAILY EL[facility]ETH Administration Atorvastatin Calcium 40 mg 02/02/25 18:00 02/05/25 16:00 Atorvastatin 40 Mg Tablet PO 40 mg QPM ELIZ[facility]ETH Administration Buspirone HCl 10 mg 02/02/25 17:00 02/05/25 16:00 Buspirone Hcl 10 Mg Tablet PO 10 mg BID [facility] Administration Carvedilol 12.5 mg 02/05/25 21:00 02/05/25 20:47 Carvedilol 12.5 Mg Tablet PO 12.5 mg Q12HR [facility] Administration Dextrose 12.5 gm 02/02/25 13:38 Dextrose 50% 25 Gm/50 Ml Syringe IV PUSH PRN PRN Hypoglycemia Protocol Docusate Sodium 100 mg 02/03/25 21:00 02/05/25 20:47 Docusate Sodium 100 Mg Capsule PO 100 mg Q12HR [facility] Administration Escitalopram Oxalate 10 mg 02/02/25 14:00 02/05/25 08:31 Escitalopram Oxalate 10 Mg Tablet PO 10 mg DAILY [facility] Administration Ferrous Sulfate 325 mg 02/03/25 09:00 02/05/25 08:31 Ferrous Sulfate [address] PO 325 mg DAILY@0800 [facility] Administration Furosemide 20 mg 02/02/25 17:00 02/05/25 15:59 Furosemide Inj 40 Mg/4 Ml Vial IV PUSH 20 mg BID [facility] Administration Glucagon 1 mg 02/02/25 13:38 Glucagon For Inj 1 Mg Vial IM PRN PRN Hypoglycemia Protocol Glucose 15 gm 02/02/25 13:38 Glucose Oral Gel 15 Gm Of Glucse In 37.5 Gm Tube PO PRN PRN Hypoglycemia Protocol Dextrose 1,000 mls @ 100 mls/hr 02/02/25 13:38 Dextrose 5% 1,000 Ml IVPB PRN PRN Hypoglycemia Protocol Insulin Aspart 3 - 6 units 02/02/25 17:00 02/06/25 08:19 Insulin Aspart (*Bkc) 100 Units/Ml SUB-Q Not Given TIDWM [facility] Protocol Insulin Aspart 1 - 3 units 02/03/25 21:00 02/05/25 20:48 Insulin Aspart (*Bkc) 100 Units/Ml SUB-Q 2 units HS [facility] Administration Protocol Lisinopril 20 mg 02/02/25 14:00 02/05/25 08:32 Lisinopril 20 Mg Tablet PO 20 mg DAILY [facility] Administration Magnesium Oxide 400 mg 02/02/25 17:00 02/05/25 16:00 Magnesium Oxide 400 Mg Tablet PO 400 mg BID [facility] Administration Memantine 5 mg 02/02/25 17:00 02/05/25 16:00 Memantine 5 Mg Tablet PO 5 mg BID [facility] Administration Nitroglycerin 0.4 mg 02/02/25 13:28 Nitroglycerin Sl 0.4 Mg Tablet SUBLINGUAL Q5MIN PRN Chest Pain Ondansetron HCl 4 mg 02/02/25 13:24 Ondansetron Inj 4 Mg/2 Ml Vial IV PUSH Q6H PRN Nausea And Vomiting Sodium Chloride 1 gm 02/04/25 13:00 02/05/25 17:13 Sodium Chloride 1 Gm Tablet PO Not Given TID [facility] Tamsulosin HCl 0.4 mg 02/03/25 09:00 02/05/25 08:31 Tamsulosin Hcl 0.4 Mg Capsule PO 0.4 mg QAM [facility] Administration Radiology Results: ITS Impressions Pulmonary Perfusion Imaging 02/02/25 16:10 IMPRESSION: 1. Low probability for pulmonary embolism. Labs Labs: Laboratory Results - last 24 hr 02/05/25 02/05/25 02/05/25 13:57 15:42 20:47 WBC RBC Hgb Hct MCV MCH MCHC RDW Plt Count MPV Immature Gran % (Auto) Neut % (Auto) Lymph % (Auto) [place] % (Auto) Eos % (Auto) Baso % (Auto) Lymph # (Auto) [place] # (Auto) Eos # (Auto) Baso # (Auto) Abs Immat Gran (auto) Absolute Neuts (auto) Absolute Nucleated RBC Nucleated RBC % Sodium Potassium Chloride Carbon Dioxide Anion Gap BUN Creatinine Estim Creat Clear Calc Estimated GFR Glucose POC Capillary Glucose 310 H 325 H 257 H Calcium 02/06/25 02/06/25 03:46 07:49 WBC 8.8 RBC 3.67 L Hgb 10.7 L Hct 31.3 L MCV 85.3 MCH 29.2 MCHC 34.2 RDW 13.5 Plt Count 282 MPV 10.3 Immature Gran % (Auto) 0.3 Neut % (Auto) 67.6 Lymph % (Auto) 22.9 [place] % (Auto) 7.9 Eos % (Auto) 0.8 Baso % (Auto) 0.5 Lymph # (Auto) 2.02 [place] # (Auto) 0.7 H Eos # (Auto) 0.1 Baso # (Auto) 0.0 Abs Immat Gran (auto) 0.03 Absolute Neuts (auto) 6.0 Absolute Nucleated RBC 0.000 Nucleated RBC % 0.0 Sodium 128 L Potassium 3.0 L Chloride 93 L Carbon Dioxide 27 Anion Gap 8 BUN 14 Creatinine 0.74 Estim Creat Clear Calc 51 Estimated GFR > 60 Glucose 153 H POC Capillary Glucose 146 H Calcium 8.6
--- NOTE | 2025-02-06 09:18 | P.DS_ITS ---
DS: Admitting Diagnosis Discharge Date 02/06 Admitting Diagnosis (1) HTN (hypertension): Qualifiers: Hypertension type: primary hypertension Qualified Code(s): I10 - Essential (primary) hypertension Code(s): I10 - Essential (primary) hypertension Status: Chronic (2) High cholesterol: Code(s): E78.00 - Pure hypercholesterolemia, unspecified Status: Chronic (3) Elevated d-dimer: Code(s): R79.89 - Other specified abnormal findings of blood chemistry Status: Acute (4) Diabetes: Qualifiers: Diabetes mellitus complication status: with hyperglycemia Diabetes mellitus assisted insulin use: without assisted use Diabetes mellitus type: type 2 Qualified Code(s): E11.65 - Type 2 diabetes mellitus with hyperglycemia Code(s): E11.9 - Type 2 diabetes mellitus without complications Status: Chronic (5) Hyponatremia: Code(s): E87.1 - Hypo-osmolality and hyponatremia Status: Chronic DS: Discharge Diagnosis Discharge Diagnosis (1) HTN (hypertension): Qualifiers: Hypertension type: primary hypertension Qualified Code(s): I10 - Essential (primary) hypertension Code(s): I10 - Essential (primary) hypertension Status: Chronic (2) High cholesterol: Code(s): E78.00 - Pure hypercholesterolemia, unspecified Status: Chronic (3) Elevated d-dimer: Code(s): R79.89 - Other specified abnormal findings of blood chemistry Status: Acute (4) Diabetes: Qualifiers: Diabetes mellitus complication status: with hyperglycemia Diabetes mellitus supervisor intermediates insulin use: without supervisor intermediates use Diabetes mellitus type: type 2 Qualified Code(s): E11.65 - Type 2 diabetes mellitus with hyperglycemia Code(s): E11.9 - Type 2 diabetes mellitus without complications Status: Chronic (5) Hyponatremia: Code(s): E87.1 - Hypo-osmolality and hyponatremia Status: Chronic DS: Summary Hospital Course Hospital Course: Per H&P 74 y/o F presents here with shortness of breath, cough, and congestion with PMH of diabetes, seizure x1 due to hyponatremia, chronic hyponatremia, hypertension, anxiety/depression, and hyperlipidemia. The patient presented to [facility] on 02/02 via EMS from home for further evaluation of shortness of breath, cough, and congestion. Cough has been dry. She reports onset of symptoms yesterday, 02/01 at 3 a.m., with worsening progression of the symptoms a few hours prior to arrival. EMS found the patient's O2 saturation to be in the upper 80s on room air and administered 1 nebulizer. She arrived 87% on room air and was placed on 4L NC. She denies accompanying chest pain, nausea, vomtiing, diarrhea, fever, chills, lower extremity edema, or weight gain. Initial VS at presentation: ED workup showed: WBC 16.0, no anemia, elevated D-dimer, INR 0.9, sodium 128, creatinine 0.82 and normal GFR, glucose 235, lactic 1.3, magnesium 1.7, initial high sensitivity troponin 53.4, 2nd high sensitivity troponin 98.9 BNP 5009, and UA showed a high specific gravity/1+ protein/trace glucose/1+ ketones. Viral PCR negative. CXR showed [id number] bibasilar pulmonary edema pattern. EKG showed junctional tachycardia, rate 114, left bundle branch block. The following med issues have been addressed during hospitalization NSTEMI Elevated troponin: Code(s): R79.89 - Other specified abnormal findings of blood chemistry Status: Acute Assessment and Plan: Elevated troponin and trending up EKG showed Junctional tachycardia, rate 114, left bundle branch block, awaiting formal read. Received ASA 324 given continue 81 daily (on at home) Nitroglycerin sublingual cardiology consulted, Received heparin gtt, V/Q scan: Low probability of pulmonary embolism Telemetry monitoring Cardiac catheterization today showed patent coronary arteries Continue aspirin 81 mg daily p.o., Lipitor 40 mg daily p.o. per securities broker recommendation Acute combined heart failure X-ray showed Pulmonary edema Qualifiers: Chronicity: acute Qualified Code(s): J81.0 - Acute pulmonary edema Code(s): J81.1 - Chronic pulmonary edema Status: Acute Assessment and Plan: BNP 5009 echocardiogram: Mild LV enlargement, normal wall thickness; moderate LV systolic dysfunction with LV dyssynchrony due to LBBB; ejection fraction calculated at 34%. Diastolic dysfunction with elevated left heart pressures. Normal RV size and systolic function. Moderate left atrial enlargement. Received Lasix IV in ED, continue Lasix 20 mg b.i.d. IV Changed to Lasix 20 mg daily p.o. per securities broker recommendation (3) Hyponatremia: Code(s): E87.1 - Hypo-osmolality and hyponatremia Status: Chronic Assessment and Plan: Na 128, possible hypovolemia hyponatremia due to CHF fluid overload and diuretic medications Given history previously so low (119) she had a seizure x1 Hold escitalopram and buspar Increase sodium chloride 1 g t.i.d. p.o. on 02/04 Sodium level stable Continue sodium chloride 1 mg b.i.d. p.o. (4) Diabetes: Qualifiers: Diabetes mellitus complication status: with hyperglycemia Diabetes mellitus assisted insulin use: without supervisor intermediates use Diabetes mellitus type: type 2 Qualified Code(s): E11.65 - Type 2 diabetes mellitus with hyperglycemia Code(s): E11.9 - Type 2 diabetes mellitus without complications Status: Chronic Assessment and Plan: - hypoglycemia protocol - POC blood glucose ACHS - home medication: hold metformin and glimepiride during hospitalization - correct regimen ordered - moderate dose TIDWM and HS, based off BMI - A1C 6.5% in 2019, update Controlled in the target range Resume home medication on discharge (5) High cholesterol: Code(s): E78.00 - Pure hypercholesterolemia, unspecified Status: Chronic Assessment and Plan: continue atorvastatin 40 mg daily (6) HTN (hypertension): Qualifiers: Hypertension type: primary hypertension Qualified Code(s): I10 - Essential (primary) hypertension Code(s): I10 - Essential (primary) hypertension Status: Chronic Assessment and Plan: continue home medications: amlodipine 10 mg daily, lisinopril 20 mg daily, add Coreg 12.5 mg b.i.d. p.o. monitor per PCP and securities broker Blood pressure is controlled in the target range Time Spent with Patient Time attestation: Total time spent providing and/or coordinating discharge services: Exam Narrative: GENERAL: Pleasant, in no acute distress. Well-nourished. - EYES: EOMI. Anicteric. - HENT: Moist mucous membranes. - LUNGS: Clear to auscultation bilateral ly, no wheezing, rhonchi, or rales. - CARDIOVASCULAR: Regular rate and rhyth m. No murmur. No JVD. - ABDOMEN: Soft, non-tender and non-dist ended. No palpable masses. - EXTREMITIES: No edema. Peripheral puls es 2+. Non-tender. - NEUROLOGIC: No focal neurological defi cits. CN II-XII grossly intact. - PSYCHIATRIC: Awake, Alert and oriented x 3. Appropriate mood and affect. - SKIN: No rashes or lesions. Warm. - LYMPH: No cervical lymphadenopathy. DS: Data Data Completed and Pending Labs on day of discharge: Labs from last 24 hours 02/06/25 02/06/25 02/05/25 07:49 03:46 20:47 WBC 8.8 RBC 3.67 L Hgb 10.7 L Hct 31.3 L MCV 85.3 MCH 29.2 MCHC 34.2 RDW 13.5 Plt Count 282 MPV 10.3 Immature Gran % (Auto) 0.3 Neut % (Auto) 67.6 Lymph % (Auto) 22.9 [place] % (Auto) 7.9 Eos % (Auto) 0.8 Baso % (Auto) 0.5 Lymph # (Auto) 2.02 [place] # (Auto) 0.7 H Eos # (Auto) 0.1 Baso # (Auto) 0.0 Abs Immat Gran (auto) 0.03 Absolute Neuts (auto) 6.0 Absolute Nucleated RBC 0.000 Nucleated RBC % 0.0 Sodium 128 L Potassium 3.0 L Chloride 93 L Carbon Dioxide 27 Anion Gap 8 BUN 14 Creatinine 0.74 Estim Creat Clear Calc 51 Estimated GFR > 60 Glucose 153 H POC Capillary Glucose 146 H 257 H Calcium 8.6 02/05/25 02/05/25 15:42 13:57 WBC RBC Hgb Hct MCV MCH MCHC RDW Plt Count MPV Immature Gran % (Auto) Neut % (Auto) Lymph % (Auto) [place] % (Auto) Eos % (Auto) Baso % (Auto) Lymph # (Auto) [place] # (Auto) Eos # (Auto) Baso # (Auto) Abs Immat Gran (auto) Absolute Neuts (auto) Absolute Nucleated RBC Nucleated RBC % Sodium Potassium Chloride Carbon Dioxide Anion Gap BUN Creatinine Estim Creat Clear Calc Estimated GFR Glucose POC Capillary Glucose 325 H 310 H Calcium Discharge Plan Discharge Attending physician on discharge: Juan Jose Gage Consulting providers: Janice Sahni Discharging Clinician: Juan Jose Gage Anticipated Discharge Date/Time: 02/06/25 17:15 Patient Disposition: Home, Self-Care Activity: as tolerated Diet: as tolerated and heart healthy Discharge Instructions: [facility] [address] [place] [address] DISCHARGE INSTRUCTIONS - POST RADIAL CATH Activity 1. No driving for 24 hours. 2. No lifting more than 5 lb with affected arm for 1 week. 3. May shower ( tomorrow) but no excessive soaking of affected hand/wrist (such as washing dishes), swimming pool or hot tub for 5 days. Wound Care 1. May remove arm board in the morning. 2. May remove gauze dressing in the morning and put Band-Aid over affected radial site. Keep site covered for 3 days. 3. Observe for redness, drainage, swelling or bleeding. Medications DO NOT STOP YOUR MEDICATIONS ONLY YOUR MULTIPLE SLIDE OPERATOR CAN STOP THE FOLLOWING MEDICATIONS - PLEASE CALL THE OFFICE WITH QUESTIONS. *Aspirin *Atorvastatin *Lisinopril *Metoprolol Important Reminders 1. Keep your stent card in your wallet at all times 2. Follow a heart healthy diet paying extra attention to cholesterol and fats. 3. Stay hydrated. 4. If you have chest pain unrelieved by rest or nitroglycerin (if prescribed) call 911 immediately. 5. If you miss one dose of Brilinta (if prescribed) take a tablet at the next time due. If you miss 2 doses take a tablet when you remember and resume at the next time due. *For any other questions please call the office at [phone]. Office hours are 8AM 4:30PM Wednesday through Wednesday. Patient Instructions: Antibiotic Form, Heart Catheterization (DC) Patient Language: Tuvaluan Stand Alone Forms: General Discharge Information Follow-up/Referrals: Janice Sahni APN-C [Advanced Practice Nurse] - 4 Weeks Discharge Medications: New docusate sodium 100 mg Capsule 100 mg PO Q12HR Qty: 60 0RF furosemide [Lasix] 20 mg tablet 20 mg PO DAILY Qty: 60 0RF sodium chloride 1,000 mg tablet,soluble 1,000 mg PO BID Qty: 60 0RF tamsulosin 0.4 mg Capsule 0.4 mg PO QAM Qty: 30 0RF carvedilol [Coreg] 12.5 mg Tablet 12.5 mg PO Q12HR Qty: 60 0RF Continued lisinopril 20 mg tablet 20 mg PO DAILY escitalopram oxalate 10 mg tablet 10 mg PO DAILY sodium chloride 1,000 mg tablet,soluble 1,000 mg PO DAILY buspirone 10 mg tablet 10 mg PO BID glimepiride 1 mg tablet 1 mg PO DAILY memantine 5 mg tablet 5 mg PO BID metformin 500 mg tablet 500 mg PO BID (DME) lancets [Accu-Chek Softclix Lancets] Misc See Rx Instructions .ROUTE .MEDSUPPLY Qty: 50 Rx Instructions: As directed (DME) Accu-Chek Guide test strips Strip See Rx Instructions .ROUTE .MEDSUPPLY Qty: 10 Rx Instructions: As directed (DME) blood-glucose meter [Accu-Chek Guide Me Glucose Mtr] Misc See Rx Instructions .ROUTE .MEDSUPPLY Qty: 1 Rx Instructions: As directed coenzyme Q10 [Co Q-10] 100 mg capsule 200 mg PO ONCE ascorbic acid (vitamin C) [Vitamin C] 500 mg tablet 500 mg PO DAILY ferrous sulfate 325 mg (65 mg iron) tablet 65 mg PO DAILY magnesium 200 mg tablet 400 mg PO BID atorvastatin 40 mg tablet 40 mg PO QPM Qty: 60 0RF amlodipine 10 mg tablet 10 mg PO DAILY Qty: 60 0RF aspirin [Vish Low Dose Aspirin] 81 mg tablet,delayed release (DR/EC) 81 mg PO DAILY Qty: 60 0RF Date of admission: 02/03/25 17:41 Primary Care Provider: Nona Núñez Admitting Provider: Ena Matos Attending physician on admission: Ena Matos Condition: Stable
[2025-02-06] MEDS: POTASSIUM CHLORIDE 20 MEQ PACKET (FOR LIQUID) 40 MEQ PO (09:58)
[2025-02-06] MEDS: ASCORBIC ACID 500 MG TABLET PO (09:59)
[2025-02-06] MEDS: MEMANTINE 5 MG TABLET PO ×2 (09:59→17:25)
[2025-02-06] MEDS: ESCITALOPRAM OXALATE 10 MG TABLET PO (09:59)
[2025-02-06] MEDS: ASPIRIN 81 MG ENTERIC TABLET PO (09:59)
[2025-02-06] MEDS: TAMSULOSIN HCL 0.4 MG CAPSULE PO (09:59)
[2025-02-06] MEDS: carvediloL 12.5 MG TABLET PO (09:59)
[2025-02-06] MEDS: FERROUS SULFATE 325 MG TABLET DR PO (10:00)
[2025-02-06] MEDS: lisinopriL 20 MG TABLET PO (10:00)
[2025-02-06] MEDS: MAGNESIUM OXIDE 400 MG TABLET PO ×2 (10:00→17:25)
[2025-02-06] MEDS: FUROSEMIDE INJ 40 MG/4 ML VIAL 20 MG IV PUSH (10:00)
[2025-02-06] MEDS: SODIUM CHLORIDE 1 GM TABLET PO ×2 (10:00→12:28)
[2025-02-06] MEDS: busPIRone HCL 10 MG TABLET PO ×2 (10:00→17:25)
[2025-02-06] MEDS: POTASSIUM CHLORIDE INJ 40 MEQ in SODIUM CHLORIDE 0.9% IV 500 ML 130 MEQ IVPB (10:01)
[2025-02-06 11:32] LABS: Glucose Point of Care 160 mg/dl (65-105)
[2025-02-06 15:44] LABS: Anion Gap 8 mmol/L (4-12); Blood Urea Nitrogen 15 mg/dL (7-17); Calcium 8.7 mg/dL (8.4-10.2); Carbon Dioxide 26 mmol/L (22-30); Chloride 93 mmol/L (98-107); Estimated CRCL calculation 50 ml/min; Estimated Glomerular Filt Rate > 60; Glucose 169 mg/dL (65-110); Potassium 4.4 mmol/L (3.4-5.0); Sodium 127 mmol/L (137-145)
[2025-02-06 16:18] LABS: Glucose Point of Care 190 mg/dl (65-105)
[2025-02-06] MEDS: ATORVASTATIN 40 MG TABLET PO (17:25)
== END 2025-02-06 17:54 | disposition home or self-care (01) | DRG 286 ==
PROVIDERS: Internal Medicine; Internal Medicine Cardiovascular Disease; Nurse Practitioner; Student in an Organized Health Care Education/Training Program; Admitting Provider Family Medicine; PCP Internal Medicine; Visit Provider Hospitalist
PROC: 4A023N7 Measurement of Cardiac Sampling and Pressure, Left Heart, Percutaneous Approach (ICD-10-PCS; CPT 93452; principal; 2025-02-05 10:00)
DX: I11.0 Hypertensive heart disease with heart failure (principal); I50.41 Acute combined systolic (congestive) and diastolic (congestive) heart failure; E87.1 Hypo-osmolality and hyponatremia; R79.89 Other specified abnormal findings of blood chemistry; T50.2X5A Adverse effect of carbonic-anhydrase inhibitors, benzothiadiazides and other diuretics, initial encounter; I44.7 Left bundle-branch block, unspecified; E11.65 Type 2 diabetes mellitus with hyperglycemia; E78.5 Hyperlipidemia, unspecified; F41.8 Other specified anxiety disorders; Z96.659 Presence of unspecified artificial knee joint; Z90.49 Acquired absence of other specified parts of digestive tract; Z90.710 Acquired absence of both cervix and uterus
CPT/HCPCS: 36415; 78582; 80048; 80061; 82948; 84443; 84484; 85025; 85610; 85730; 93005; 93306; 93458; 96366; 96376; A9270; A9540; A9558; C1769; C1887; C1894; G0378; J1200; J1644; J1815; J1940; J2003; J2305; J3010; J3480; J7030; J7040; J7512

== ENCOUNTER 2025-03-11 07:35 | Inpatient (IN) | payer MEDICARE, SELFPAY ==
[2025-03-11] VITALS (16 sets, daily range): BP systolic 115–145; BP diastolic 62–83; PULSE 66–93; RESP 16–20; TEMP 36.5–36.6; O2SAT 89–99; BMI 27.1
--- NOTE | ~2025-03-11 | XR_ITS ---
XR chest 1V portable 03/11/2025 08:03 Indication: Dyspnea Procedure: AP portable chest Comparison: 02/02/2025 Findings: Asymmetric right-sided airspace disease is unchanged compared with 02/02/2025. No significan t left-sided airspace disease. Cardiomegaly. No pleural effusion. No pneumothorax. No acute osseous a bnormality. Impression: 1: Asymmetric airspace disease of the right lung which may represent edema or pneumonia. Reviewed, dictated and finalized at location A. Impression: 1: Asymmetric airspace disease of the right lung which may represent edema or p neumonia.
--- NOTE | 2025-03-11 07:46 | ECG_ITS ---
Test Date: 2025-03-11 07:52:39 Measurements Intervals [place] Rate: 85 P: 34 [place]: 203 QRS: -27 QRSD: 158 T: 120 QT: 425 QTc: 508 Interpretive Statements SINUS RHYTHM POSSIBLE LEFT ATRIAL ENLARGEMENT BORDERLINE AV CONDUCTION DELAY LEFT BUNDLE BRANCH BLOCK BASELINE ARTIFACT- I, II, III, AVR, AVL, AVF, V1 ABNORMAL ECG Compared to ECG 02/02/2025 14:42:52 HEART RATE HAS DECREASED Electronically Signed On 03-11-2025 08:39:26 CDT by Marito Cartwright D.O.
--- OUTSIDE RECORDS SUMMARY | 2025-03-11 07:59 | XMS_ITS | Clinical Summary ---
Author Organization [facility] Address [address] [place] [address] Care Team Providers Care Cyanide Case Hardener Name Role Phone Nona Núñez MD Primary Care Provider [phone] Seth Frances MD Unavailable [phone] Allergies Active Allergy Reactions Criticality Noted Date [...] Td Vaccines ( 1 - Tdap) 1968 Pneumococcal Vaccine: 50+ Ye ars (1 of 1 - PCV) 1999 Zoster Vaccines (1 of 2) 1999 Annual Medicare Wellness Visit 2014 Dexa Scan (General) 2014 RSV Immunization or 60+ Years (1 - 1-dose 75+ series) 2024 COVID-19 Vaccine ( - 2023-2 5 season) 2024 Meningococcal B Vaccine Aged Out No l onger eligible based on patient's age to complete this topic Meningococcal Vaccine Aged Out No van jean eligible based on patient's age to complete this topic RSV Immunizations Under 20 Months Aged Out No longer eligible based on patient's age to complete this topic Insurance [employer] Care Teams Cyanide Case Hardener Relationship Specialty Start Date End Date Nona Núñez MD [address] [place] [id number] PCP - General INTERNAL MEDICINE 07/23/16 Seth Frances MD [address] [place] [address] CARDIOVASCULAR DISEASE 07/23/16
--- OUTSIDE RECORDS SUMMARY | 2025-03-11 07:59 | XMS_ITS | Encounter Summary ---
Author Organization [facility] Address [address] [place] [address] Care Team Providers Care Corrugated Fastener Driver Name Role Phone Nona Núñez MD Primary Care Provider [phone] Seth Frances MD Unavailable [phone] Encounter Details Date Type Department Care Team (Late st Contact Info) Description 06/15/2016 Abstract [facility] [address] [place] [id number] Abstract, Doc [facility] Social History Tobacco [...] on filedocumented in this encounter Care Teams Corrugated Fastener Driver Relationship Specialty Start Date End Date Nona Núñez MD [address] [place] [address] PCP - General INTERNAL MEDICINE 07/23/16 Seth Frances MD [address] [place] [address] CARDIOVASCULAR DISEASE 07/23/16 documented as of this encounter
[2025-03-11 08:03] LABS: Basophils Absolute Auto 0.1 K/mm3 (0.0-0.1); Basophils Percent Auto 0.8 % (0.2-1.2); Eosinophils Absolute Auto 0.1 K/mm3 (0-0.3); Eosinophils Percent Auto 0.8 % (0-4.4); Hematocrit 36.9 % (37.0-47.0); Hemoglobin 11.9 g/dL (12.0-15.0); Immature Granulocyte Absolute 0.11 K/mm3 (0.00-0.031); Immature Granulocyte Percent A 0.7 % (0-0.5); Lymphocytes Absolute Auto 0.93 K/mm3 (0.9-3.2); Lymphocytes Percent Auto 5.5 % (18.3-44.2); Mean Corpuscular HGB Conc 32.2 g/dl (32-36); Mean Corpuscular Hemoglobin 28.7 pg (26-34); Mean Corpuscular Volume 89.1 fl (80-100); Mean Platelet Volume 9.5 fl (7.4-10.4); Monocytes Absolute Auto 0.6 K/mm3 (0.1-0.6); Monocytes Percent Auto 3.4 % (2.6-8.5); Neutrophils Absolute Auto 14.9 K/mm3 (1.3-6.7); Neutrophils Percent Auto 88.8 % (45.5-73.1); Platelet Count Result 327 k/mm3 (150-375); Red Blood Count 4.14 M/mm3 (4.2-5.4); Red Cell Distribution Width 13.9 % (11.5-14.5); White Blood Count 16.8 K/mm3 (4.5-10.0)
[2025-03-11 08:13] LABS: Alanine Aminotransferase 19 U/L (6-35); Albumin Level 3.9 g/dL (3.5-5.1); Alkaline Phosphatase 149 U/L (38-126); Anion Gap 9 mmol/L (4-12); Aspartate Amino Transferase 22 U/L (14-36); Bilirubin,Total 0.5 mg/dL (0.2-1.3); Blood Urea Nitrogen 8 mg/dL (7-17); Calcium 8.5 mg/dL (8.4-10.2); Carbon Dioxide 28 mmol/L (22-30); Chloride 96 mmol/L (98-107); Estimated CRCL calculation 58 ml/min; Estimated Glomerular Filt Rate > 60; Glucose 162 mg/dL (65-110); Potassium 4.1 mmol/L (3.4-5.0); Sodium 133 mmol/L (137-145)
[2025-03-11 08:25] LABS: NT Pro B Type Natriuretic Pept 6320 pg/mL (19.9-100); Troponin I 0.013 ng/mL (0.000-0.034)
[2025-03-11] MEDS: FUROSEMIDE INJ 40 MG/4 ML VIAL IV PUSH (08:53)
[2025-03-11] MEDS: AZITHROMYCIN 250 MG TABLET 500 MG PO (08:53)
[2025-03-11 09:04] LABS: Lactic Acid Reflex 2.1 mmol/L (0.7-2.0)
[2025-03-11 10:09] LABS: Hemoglobin A1C 5.8 % (<5.7)
[2025-03-11] MEDS: ENOXAPARIN 40 MG/0.4 ML SYRINGE SUB-Q (10:11)
--- NOTE | 2025-03-11 10:36 | ED_ITS ---
HPI - SOB/Dyspnea General Chief Complaint: Shortness of Breath/Dyspnea Stated Complaint: SOB Time Seen by Provider: 03/11/25 07:41 History of Present Illness HPI Narrative: Patient with history of CHF started feeling short of breath last night, she also developed a cough. She is on Lasix, did miss 1 dose yesterday. Denies any chest pain. Related Data Home Medications ?Medication ?Instructions ?Recorded ?Confirmed ?Last Taken ?Type blood sugar diagnostic (Accu-Chek #10 ea 10/05/19 02/02/25 Unknown History Guide test strips) blood-glucose meter (Accu-Chek #1 ea 10/05/19 02/02/25 Unknown History Guide Me Glucose Meter) lancets (Accu-Chek Softclix #50 ea 10/05/19 02/02/25 Unknown History Lancets) metformin 500 mg tablet 500 mg PO BID 10/05/19 03/11/25 02/01/25 History ascorbic acid (vitamin C) 500 mg 500 mg PO DAILY 02/02/25 03/11/25 02/01/25 History tablet (Vitamin C) buspirone 10 mg tablet 10 mg PO BID 02/02/25 03/11/25 02/01/25 History coenzyme Q10 100 mg capsule (Co 200 mg PO ONCE 02/02/25 03/11/25 02/01/25 History Q-10) escitalopram oxalate 10 mg tablet 10 mg PO DAILY 02/02/25 03/11/25 02/01/25 History ferrous sulfate 325 mg (65 mg 65 mg PO DAILY 02/02/25 03/11/25 02/01/25 History iron) tablet glimepiride 1 mg tablet 1 mg PO DAILY 02/02/25 03/11/25 02/01/25 History lisinopril 20 mg tablet 20 mg PO DAILY 02/02/25 03/11/25 02/01/25 History magnesium 200 mg tablet 400 mg PO BID 02/02/25 03/11/25 02/01/25 History memantine 5 mg tablet 5 mg PO BID 02/02/25 03/11/25 02/01/25 History sodium chloride 1,000 mg soluble 1,000 mg PO DAILY 02/02/25 03/11/25 02/01/25 History tablet amlodipine 10 mg tablet 5 mg PO DAILY 03/11/25 03/11/25 Unknown History atorvastatin 40 mg tablet 20 mg PO QPM 03/11/25 03/11/25 Unknown History Allergies Allergy/AdvReac Type Severity Reaction Status Date / Time adhesive tape Allergy Unknown BLISTERS Verified 03/11/25 07:58 ampicillin Allergy Unknown rash Verified 03/11/25 07:58 diazepam Allergy Unknown rash Verified 03/11/25 07:58 meperidine Allergy Unknown GI upset Verified 03/11/25 07:58 Penicillins Allergy Unknown rash Verified 03/11/25 07:58 Contrast Media Allergy Unknown unknown Uncoded 03/11/25 07:58 Review of Systems 2 Review of Systems: All systems reviewed & are unremarkable except as noted in HPI and below PMFSH Past Medical History Medical History High cholesterol HTN (hypertension) History of seizure only one time Depression Diabetes Injury of toenail Third degree hemorrhoids Surgical History Surgical History Hx of cholecystectomy History of knee joint replacement H/O neck surgery H/O rotator cuff surgery History of carpal tunnel surgery History of hysterectomy Family History Family History Sibling Hypertension Family history of elevated blood lipids Family history of cardiovascular disease Father Family history of cardiovascular disease Mother Family history of Alzheimer's disease Other Cerebrovascular accident Diabetes mellitus Family history of kidney disease Family history of malignant neoplasm Social History Social History Smoking status: Never smoker Second hand tobacco smoke exposure: No Alcohol intake: never Substance use: never Substance use type: does not use Do You Feel Safe in your Home?: Yes Lack of Transportation: No Lack of Food: Never True Current Housing: I Have Housing Concerned About Future Housing: No Difficulty Paying Gas/Electric Bills: No Difficulty Paying for Meds: No Currently Unemployed: No Education: Associate Degree Difficulty w/ Childcare or Family Care: No Spiritual care concerns: No Exam 2 Narrative: EXAMINATION OF ORGAN SYSTEMS/BODY AREAS: Constitutional: Vital signs per nursing GENERAL:[No acute distress, non-toxic appearing.] HEAD: Normal with no signs of head trauma. EYES: EOMI, conjunctiva normal ENT: Hearing grossly intact LUNGS: Crackles right lung HEART: [Regular rate and rhythm] ABD: [Soft], [nontender to palpation] EXT: Normal range of motion, no lower extremity edema SKIN: [No rashes or lesions.] NEURO: [Alert and oriented x 3. No gross focal sensory or strength deficits.] PSYCH: Normal affect Course Vital Signs Vital signs: Vital Signs Temperature 97.7 F 03/11/25 07:48 Pulse Rate 86 03/11/25 07:48 Respiratory Rate 17 03/11/25 07:48 Blood Pressure 118/83 03/11/25 07:48 Pulse Oximetry 90 03/11/25 07:48 Oxygen Delivery Room Air 03/11/25 07:48 Temperature 97.7 F 03/11/25 07:48 Pulse Rate 72 03/11/25 10:10 Respiratory Rate 16 03/11/25 10:10 Blood Pressure 115/72 03/11/25 10:10 Pulse Oximetry 97 03/11/25 10:10 Oxygen Delivery Nasal Cannula 03/11/25 07:57 Oxygen Flow Rate 2 03/11/25 07:57 MDM - SOB/Dyspnea MDM Narrative Medical decision making narrative: Patient with history of CHF started feeling short of breath last night, she also developed a cough. She is on Lasix, did miss 1 dose yesterday. Denies any chest pain. On exam she is requiring oxygen, does have crackles to the right side, on my independent interpretation of the chest x-ray she does have opacities to the right lung. EKG on my independent interpretation shows normal sinus rhythm with left bundle- branch block rate 85, IN interval 203, QRS 158, QTC 508, no significant ST elevations or depressions or signs of acute ischemia or arrhythmia. On labs she does have an elevated BNP of 6300, troponin thankfully negative, and an elevated white count of 16.8 which with her cough, I do feels consistent with pneumonia. She started on antibiotics, Lasix, and I did discuss this with the family and updated them on the plan for admission as she is requiring oxygen, discussed with hospitalist for admission. Lab Data 03/11/25 07:58 03/11/25 07:58 Labs: Lab Results 03/11/25 03/11/25 03/11/25 Range/Units 07:58 07:58 08:49 WBC 16.8 H (4.5-10.0) K/mm3 RBC 4.14 L (4.2-5.4) M/mm3 Hgb 11.9 L (12.0-15.0) g/dL Hct 36.9 L (37.0-47.0) % MCV 89.1 (80-100) fl MCH 28.7 (26-34) pg MCHC 32.2 (32-36) g/dl RDW 13.9 (11.5-14.5) % Plt Count 327 (150-375) k/mm3 MPV 9.5 (7.4-10.4) fl Immature Gran % (Auto) 0.7 H (0-0.5) % Neut % (Auto) 88.8 H (45.5-73.1) % Lymph % (Auto) 5.5 L (18.3-44.2) % [place] % (Auto) 3.4 (2.6-8.5) % Eos % (Auto) 0.8 (0-4.4) % Baso % (Auto) 0.8 (0.2-1.2) % Lymph # (Auto) 0.93 (0.9-3.2) K/mm3 [place] # (Auto) 0.6 (0.1-0.6) K/mm3 Eos # (Auto) 0.1 (0-0.3) K/mm3 Baso # (Auto) 0.1 (0.0-0.1) K/mm3 Abs Immat Gran (auto) 0.11 H (0.00-0.031) K/mm3 Absolute Neuts (auto) 14.9 H (1.3-6.7) K/mm3 Absolute Nucleated RBC 0.000 (0.0-0.012) K/mm3 Nucleated RBC % 0.0 (0.0-0.2) % Sodium 133 L (137-145) mmol/L Potassium 4.1 (3.4-5.0) mmol/L Chloride 96 L (98-107) mmol/L Carbon Dioxide 28 (22-30) mmol/L Anion Gap 9 (4-12) mmol/L BUN 8 D (7-17) mg/dL Creatinine 0.67 L (0.7-1.0) mg/dL Estim Creat Clear Calc 58 ml/min Estimated GFR > 60 (59 - ) Glucose 162 H (65-110) mg/dL Hemoglobin A1c 5.8 H (<5.7) % Lactic Acid 2.1 H (0.7-2.0) mmol/L Calcium 8.5 (8.4-10.2) mg/dL Magnesium 2.0 Cancelled (1.6-2.3) mg/dL Total Bilirubin 0.5 (0.2-1.3) mg/dL AST 22 (14-36) U/L ALT 19 (6-35) U/L Alkaline Phosphatase 149 H (38-126) U/L Troponin I 0.013 (0.000-0.034) ng/mL NT-Pro-B Natriuret Pep 6320 H (19.9-100) pg/mL Total Protein 6.0 L (6.3-8.2) g/dL Albumin 3.9 (3.5-5.1) g/dL TSH 1.910 (0.465-4.680) uIU/mL Critical Care Time Critical Care Time Critical Care Time: Yes Total Critical Care Time: 31 Discharge Plan Discharge Clinical Impression: Pneumonia, Acute hypoxemic respiratory failure Patient Disposition: Still a Patient Condition: Serious
--- NOTE | 2025-03-11 10:37 | ADMGEN ---
This patient, Maranda Izquierdo, was admitted to 3 Med Surg Room 314-02. Patient/family oriented to hospital policies and general routines including ID bracelet, bed and alarms, visiting hours, pain management, procedures, bathroom and other care routines, personal items, smoking policy, room service/diet, and visiting hours. Information on how to activate the Rapid Response Team has been discussed. Patient/Family are encouraged to report perceived risks to care and to ask questions if they do not understand what they are told or what they should do.
[2025-03-11 10:52] LABS: Reflex Lactic Acid Yes or No Add Lactic
[2025-03-11 10:56] LABS: Magnesium 2.1 mg/dL (1.6-2.3)
[2025-03-11 11:01] LABS: MRSA (PCR) NOT DETECTED (NOT DETECTE)
[2025-03-11 11:34] LABS: Lactic Acid 1.1 mmol/L (0.7-2.0)
[2025-03-11 11:38] LABS: Glucose Point of Care 149 mg/dl (65-105)
--- NOTE | 2025-03-11 11:51 | P.HP_ITS ---
H&P: HPI History of Present Illness Date/Time: 03/11/25 11:51 Chief Complaint: SOB Narrative: This is a 74-year-old female with a significant past medical history of hyperlipidemia, hypertension, depression, type 2 diabetes mellitus, CHF who presented to the hospital with shortness of breath that started last night and developed a cough. She reported in the ED that she missed a dose of her Lasix yesterday. She denies any sick contacts or recent illnesses. She denies any fevers, chills, nausea, vomiting, diarrhea, abdominal pain, chest pain, shortness a breath. She was recently discharged on 02/06/2025 and was diagnosed with CHF. During that hospitalization she had a cardiac catheterization showed patent coronary arteries. Echo cardiogram reviewed which shown reduced LV systolic function with an estimated EF of 34%, diastolic dysfunction. She was started on Lasix, high-dose statin, and aspirin 81 mg daily. She was then sent home with follow-up recommendation to Cardiology in 4 weeks. All 3 of her daughters were at the bedside and stated that she has been non compliant with her diet both for cardiac and diabetes. They also reported that she drinks a lot of fluid during the day. Last night is when she started getting short of breath and had difficulty resting so she decided to come to the ER for further evaluation. Workup in the hospital included a chest x-ray which showed asymmetr ic airspace disease of the right lung representing edema or pneumonia. Initial labs showed a white blood cell count of 16.8, hemoglobin 11.9, sodium 133, chloride 96, creatinine 0.67, blood sugars ranging 149-162, hemoglobin A1c 5.8, lactic acid was normal at 1.1, alkaline phosphate 149, troponin was negative, proBNP 6320, TSH was normal at 1.910. MRSA was negative. EKG showed sinus rhythm with a rate of 85, left bundle branch block, QTC 508. Patient was started on Rocephin and azithromycin, given 40 mg IV push Lasix while in the ED. Review of Systems Review of Systems: All systems reviewed & are unremarkable except as noted in HPI and below PMFSH Past Medical History Medical History (Updated 03/11/25 @ 15:47 by Bethany Ruiz, [employer]) High cholesterol HTN (hypertension) History of seizure only one time Depression Diabetes Injury of toenail Third degree hemorrhoids Surgical History Surgical History Hx of cholecystectomy History of knee joint replacement H/O neck surgery H/O rotator cuff surgery History of carpal tunnel surgery History of hysterectomy Family History Family History Sibling Hypertension Family history of elevated blood lipids Family history of cardiovascular disease Father Family history of cardiovascular disease Mother Family history of Alzheimer's disease Other Cerebrovascular accident Diabetes mellitus Family history of kidney disease Family history of malignant neoplasm Social History Social History Smoking status: Never smoker Second hand tobacco smoke exposure: No Alcohol intake: never Substance use: never Substance use type: does not use Do You Feel Safe in your Home?: Yes Lack of Transportation: No Lack of Food: Never True Current Housing: I Have Housing Concerned About Future Housing: No Difficulty Paying Gas/Electric Bills: No Difficulty Paying for Meds: No Currently Unemployed: No Education: Associate Degree Difficulty w/ Childcare or Family Care: No Spiritual care concerns: No Meds Home Medications and Allergies Home Medications ?Medication ?Instructions ?Recorded ?Confirmed ?Type blood sugar diagnostic (Accu-Chek #10 ea 10/05/19 03/11/25 History Guide test strips) blood-glucose meter (Accu-Chek #1 ea 10/05/19 03/11/25 History Guide Me Glucose Meter) lancets (Accu-Chek Softclix #50 ea 10/05/19 03/11/25 History Lancets) metformin 500 mg tablet 500 mg PO BID 10/05/19 03/11/25 History ascorbic acid (vitamin C) 500 mg 500 mg PO DAILY 02/02/25 03/11/25 History tablet (Vitamin C) buspirone 10 mg tablet 10 mg PO BID 02/02/25 03/11/25 History coenzyme Q10 100 mg capsule (Co 200 mg PO ONCE 02/02/25 03/11/25 History Q-10) escitalopram oxalate 10 mg tablet 10 mg PO DAILY 02/02/25 03/11/25 History ferrous sulfate 325 mg (65 mg 65 mg PO DAILY 02/02/25 03/11/25 History iron) tablet glimepiride 1 mg tablet 1 mg PO DAILY 02/02/25 03/11/25 History lisinopril 20 mg tablet 20 mg PO DAILY 02/02/25 03/11/25 History magnesium 200 mg tablet 400 mg PO BID 02/02/25 03/11/25 History memantine 5 mg tablet 5 mg PO BID 02/02/25 03/11/25 History sodium chloride 1,000 mg soluble 1,000 mg PO DAILY 02/02/25 03/11/25 History tablet aspirin 81 mg tablet,delayed 81 mg PO DAILY #60 tabs 02/06/25 03/11/25 Rx release (Vish Low Dose Aspirin) carvedilol 12.5 mg tablet (Coreg) 12.5 mg PO Q12HR #60 tabs 02/06/25 03/11/25 Rx docusate sodium 100 mg capsule 100 mg PO Q12HR #60 caps 02/06/25 03/11/25 Rx furosemide 20 mg tablet (Lasix) 20 mg PO DAILY #60 tabs 02/06/25 03/11/25 Rx sodium chloride 1,000 mg soluble 1,000 mg PO BID #60 tabs 02/06/25 03/11/25 Rx tablet amlodipine 10 mg tablet 5 mg PO DAILY 03/11/25 03/11/25 History atorvastatin 40 mg tablet 20 mg PO QPM 03/11/25 03/11/25 History Allergies Allergy/AdvReac Type Severity Reaction Status Date / Time adhesive tape Allergy Unknown BLISTERS Verified 03/11/25 07:58 ampicillin Allergy Unknown rash Verified 03/11/25 07:58 diazepam Allergy Unknown rash Verified 03/11/25 07:58 meperidine Allergy Unknown GI upset Verified 03/11/25 07:58 Penicillins Allergy Unknown rash Verified 03/11/25 07:58 Contrast Media Allergy Unknown unknown Uncoded 03/11/25 07:58 Vital Signs Vital Signs - 24 hr 03/11/25 07:48 03/11/25 07:52 03/11/25 07:57 Temperature 97.7 F Pulse Rate 86 Respiratory Rate 17 Blood Pressure 118/83 Pulse Oximetry 90 89 L 93 Oxygen Delivery Room Air Room Air Nasal Cannula Oxygen Flow Rate 2 03/11/25 10:10 03/11/25 10:30 Temperature 97.9 F Pulse Rate 72 79 Respiratory Rate 16 20 Blood Pressure 115/72 124/75 Pulse Oximetry 97 97 Oxygen Delivery Oxygen Flow Rate Exam Narrative: General: In no acute distress, well nourished Head: atraumatic, no encephalopathy Eyes: PERRLA, sclera clear ENT: moist mucous membranes, nasal passages clear Neck: supple, no JVD, no adenopathy, trachea midline Cardiac: Normal S1 and S2. No murmur, gallops or friction rubs, peripheral pulses intact. Respiratory: Right upper and lower lobe course breath sounds, Left lung clear, no adventitious lung sounds, currently on 2L NC Gastrointestinal: soft, non-distended, non-tender, normoactive bowel sounds. :Urinary retention greater than 600ml in bladder, tony placed Extremities: moves all extremities well, no edema Skin: clean, dry, intact. No wounds or lesions. Neuro: Alert and oriented x4, cranial nerves intact, no neuro deficits. Psych: normal mood, normal affect, interactive H&P: Results Labs Labs: Short CBC 03/11/25 Range/Units 07:58 WBC 16.8 H (4.5-10.0) K/mm3 Hgb 11.9 L (12.0-15.0) g/dL Hct 36.9 L (37.0-47.0) % Plt Count 327 (150-375) k/mm3 BMP 03/11/25 07:58 Sodium 133 L Potassium 4.1 Chloride 96 L Carbon Dioxide 28 BUN 8 D Creatinine 0.67 L Glucose 162 H Calcium 8.5 Cardiac Enzymes 03/11/25 Range/Units 07:58 Troponin I 0.013 (0.000-0.034) ng/mL Liver Function 03/11/25 Range/Units 07:58 Total Bilirubin 0.5 (0.2-1.3) mg/dL AST 22 (14-36) U/L ALT 19 (6-35) U/L Alkaline Phosphatase 149 H (38-126) U/L Albumin 3.9 (3.5-5.1) g/dL Assessment and Plan Assessment and plan (1) Acute hypoxemic respiratory failure: Code(s): J96.01 - Acute respiratory failure with hypoxia Status: Acute Assessment and Plan: Secondary to possible pneumonia versus CHF exacerbation * Currently on 2 L nasal cannula * Wean O2 for oxygen saturation greater than 92% * DuoNebs q.6 hours (2) Pneumonia: Code(s): J18.9 - Pneumonia, unspecified organism Status: Acute Assessment and Plan: * Continue Rocephin and azithromycin * Continue to wean O2 for sat greater than 92% * Continue DuoNebs * MRSA negative * Urine strep, urine Legionella, mycoplasma pending (3) HFrEF (heart failure with reduced ejection fraction): Code(s): I50.20 - Unspecified systolic (congestive) heart failure Status: Acute Assessment and Plan: * Echocardiogram from 02/02/2025 showed reduced EF of 30-35%, diastolic dysfunction. Recent cardiac catheterization showed patent coronary arteries * Continue with IV Lasix for now * Obtain daily weight * Strict I&O * EKG showing sinus rhythm with a rate of 85, left bundle branch block, QTC 508 * Chest x-ray shown asymmetric airspace disease of the right lung which may represent edema or pneumonia * Dietitian consulted--non compliant with Heart healthy options * Fluid restriction 1800 mL daily (4) HTN (hypertension): Qualifiers: Hypertension type: primary hypertension Qualified Code(s): I10 - Essential (primary) hypertension Code(s): I10 - Essential (primary) hypertension Status: Chronic Assessment and Plan: * Blood pressure ranging 115/72 to 124/75 * Continue amlodipine and Coreg * Will hold lisinopril due to FAHAD (5) Diabetes: Qualifiers: Diabetes mellitus type: type 2 Diabetes mellitus fpc insulin use: without fpc use Diabetes mellitus complication status: with hyperglycemia Qualified Code(s): E11.65 - Type 2 diabetes mellitus with hyperglycemia Code(s): E11.9 - Type 2 diabetes mellitus without complications Status: Chronic Assessment and Plan: * Blood sugars ranging 149-162 * Hgb A1C 5.8 * Accu checks AC/HS * Moderate dose SSI ordered * Will hold metformin and glimepiride * hypoglycemic protocol in place * Diabetic diet ordered * Dietitian consulted--patient has been noncompliant with a diabetic diet (6) High cholesterol: Code(s): E78.00 - Pure hypercholesterolemia, unspecified Status: Chronic Assessment and Plan: * Continue aspirin and atorvastatin (7) Hyponatremia: Code(s): E87.1 - Hypo-osmolality and hyponatremia Status: Chronic Assessment and Plan: * Sodium 133 * Appears to be chronic * Continue sodium tablet once a day (8) Urinary retention: Code(s): R33.9 - Retention of urine, unspecified Status: Acute Assessment and Plan: * Patient has had greater than 600 mL urine in bladder on bladder scan * Tony catheter placed Quality VTE Prophylaxis VTE prophylaxis: pharmacologic ordered Hospitalist MIPS Advance Care Plan I have confirmed that the patient's Advanced Care Plan is present, code status is documented, or surrogate decision maker is listed in patient medical record.: Yes Medication Reconciliation I have utilized all available resources to obtain, update and review the sade ents current medications (includes all prescriptions, OTC, herbals, cannabis, and nutritional supplements).: Yes
[2025-03-11] MEDS: IPRATROPIUM 0.5 MG/ALBUTEROL SULFATE 2.5 MG AMPUL.NEB 3 ML INHALATION ×2 (14:28→21:00)
[2025-03-11] MEDS: ASCORBIC ACID 500 MG TABLET PO (16:03)
[2025-03-11] MEDS: SODIUM CHLORIDE 1 GM TABLET PO (16:03)
[2025-03-11] MEDS: amLODIPine BESYLATE 5 MG TABLET PO (16:03)
[2025-03-11] MEDS: busPIRone HCL 10 MG TABLET PO (16:04)
[2025-03-11] MEDS: ASPIRIN 81 MG ENTERIC TABLET PO (16:04)
[2025-03-11] MEDS: FERROUS SULFATE 325 MG TABLET DR BY MOUTH (16:04)
[2025-03-11] MEDS: MEMANTINE 5 MG TABLET PO (16:04)
[2025-03-11] MEDS: ESCITALOPRAM OXALATE 10 MG TABLET PO (16:04)
[2025-03-11 16:40] LABS: Glucose Point of Care 133 mg/dl (65-105)
[2025-03-11 16:51] LABS: Influenza A QL RT-PCR Negative (Negative); Influenza B QL RT-PCR Negative (Negative); RSV RNA, RT-PCR Negative (Negative); SARS-CoV-2 RNA PCR Negative (Negative)
[2025-03-11] MEDS: ATORVASTATIN 20 MG TABLET PO (17:04)
[2025-03-11 21:11] LABS: Glucose Point of Care 144 mg/dl (65-105)
[2025-03-11] MEDS: DOCUSATE SODIUM 100 MG CAPSULE PO (21:34)
[2025-03-11] MEDS: carvediloL 12.5 MG TABLET PO (21:34)
[2025-03-12] VITALS (11 sets, daily range): BP systolic 118–138; BP diastolic 68–87; PULSE 66–88; RESP 16–20; TEMP 36.1–36.9; O2SAT 95–100
[2025-03-12] MEDS: IPRATROPIUM 0.5 MG/ALBUTEROL SULFATE 2.5 MG AMPUL.NEB 3 ML INHALATION ×3 (02:05→14:11)
[2025-03-12 06:03] LABS: Basophils Absolute Auto 0.1 K/mm3 (0.0-0.1); Eosinophils Absolute Auto 0.1 K/mm3 (0-0.3); Eosinophils Percent Auto 1.6 % (0-4.4); Hematocrit 35.6 % (37.0-47.0); Hemoglobin 11.5 g/dL (12.0-15.0); Immature Granulocyte Absolute 0.03 K/mm3 (0.00-0.031); Immature Granulocyte Percent A 0.4 % (0-0.5); Lymphocytes Percent Auto 18.3 % (18.3-44.2); Mean Corpuscular HGB Conc 32.3 g/dl (32-36); Mean Corpuscular Hemoglobin 28.2 pg (26-34); Mean Corpuscular Volume 87.3 fl (80-100); Mean Platelet Volume 9.5 fl (7.4-10.4); Monocytes Absolute Auto 0.7 K/mm3 (0.1-0.6); Monocytes Percent Auto 8.5 % (2.6-8.5); Neutrophils Absolute Auto 5.4 K/mm3 (1.3-6.7); Neutrophils Percent Auto 70.2 % (45.5-73.1); Platelet Count Result 314 k/mm3 (150-375); Red Blood Count 4.08 M/mm3 (4.2-5.4); Red Cell Distribution Width 13.8 % (11.5-14.5); White Blood Count 7.7 K/mm3 (4.5-10.0)
[2025-03-12 06:18] LABS: Alanine Aminotransferase 17 U/L (6-35); Albumin Level 3.7 g/dL (3.5-5.1); Alkaline Phosphatase 112 U/L (38-126); Anion Gap 8 mmol/L (4-12); Aspartate Amino Transferase 19 U/L (14-36); Bilirubin,Total 0.5 mg/dL (0.2-1.3); Blood Urea Nitrogen 11 mg/dL (7-17); Calcium 8.5 mg/dL (8.4-10.2); Carbon Dioxide 28 mmol/L (22-30); Chloride 97 mmol/L (98-107); Estimated CRCL calculation 61 ml/min; Estimated Glomerular Filt Rate > 60; Glucose 145 mg/dL (65-110); Potassium 3.5 mmol/L (3.4-5.0); Sodium 133 mmol/L (137-145)
[2025-03-12] MEDS: amLODIPine BESYLATE 5 MG TABLET PO (08:18)
[2025-03-12] MEDS: FERROUS SULFATE 325 MG TABLET DR BY MOUTH (08:18)
[2025-03-12] MEDS: ESCITALOPRAM OXALATE 10 MG TABLET PO (08:18)
[2025-03-12] MEDS: AZITHROMYCIN 250 MG TABLET 500 MG PO (08:18)
[2025-03-12] MEDS: MEMANTINE 5 MG TABLET PO (08:18)
[2025-03-12] MEDS: busPIRone HCL 10 MG TABLET PO (08:18)
[2025-03-12] MEDS: ASPIRIN 81 MG ENTERIC TABLET PO (08:18)
[2025-03-12] MEDS: SODIUM CHLORIDE 1 GM TABLET PO (08:18)
[2025-03-12] MEDS: ASCORBIC ACID 500 MG TABLET PO (08:19)
[2025-03-12] MEDS: DOCUSATE SODIUM 100 MG CAPSULE PO (08:19)
[2025-03-12] MEDS: carvediloL 12.5 MG TABLET PO (08:19)
[2025-03-12 08:25] LABS: Glucose Point of Care 153 mg/dl (65-105)
[2025-03-12 12:16] LABS: Glucose Point of Care 146 mg/dl (65-105)
--- NOTE | 2025-03-12 14:37 | PM.DS ---
DS: Admitting Diagnosis Discharge Date 03/12/25 Admitting Diagnosis Acute hypoxemic respiratory failure Pneumonia HFrEF hypertension Diabetes hyperlipidemia hyponatremia Urinary retention DS: Discharge Diagnosis Discharge Diagnosis (1) Acute hypoxemic respiratory failure: Code(s): J96.01 - Acute respiratory failure with hypoxia Status: Acute (2) Pneumonia: Code(s): J18.9 - Pneumonia, unspecified organism Status: Acute (3) HFrEF (heart failure with reduced ejection fraction): Code(s): I50.20 - Unspecified systolic (congestive) heart failure Status: Acute (4) HTN (hypertension): Qualifiers: Hypertension type: primary hypertension Qualified Code(s): I10 - Essential (primary) hypertension Code(s): I10 - Essential (primary) hypertension Status: Chronic (5) Diabetes: Qualifiers: Diabetes mellitus complication status: with hyperglycemia Diabetes mellitus jail insulin use: without long term care phlebotomist use Diabetes mellitus type: type 2 Qualified Code(s): E11.65 - Type 2 diabetes mellitus with hyperglycemia Code(s): E11.9 - Type 2 diabetes mellitus without complications Status: Chronic (6) High cholesterol: Code(s): E78.00 - Pure hypercholesterolemia, unspecified Status: Chronic (7) Hyponatremia: Code(s): E87.1 - Hypo-osmolality and hyponatremia Status: Chronic (8) Urinary retention: Code(s): R33.9 - Retention of urine, unspecified Status: Acute DS: Summary Hospital Course Reason for hospitalization: Acute hypoxemic respiratory failure Pneumonia HFrEF hypertension Diabetes hyperlipidemia hyponatremia Urinary retention Hospital Course: This is a 74-year-old female with a significant past medical history of hyperlipidemia, hypertension, depression, type 2 diabetes mellitus, CHF who presented to the hospital with shortness of breath that started last night and developed a cough. She reported in the ED that she missed a dose of her Lasix yesterday. She denies any sick contacts or recent illnesses. She denies any fevers, chills, nausea, vomiting, diarrhea, abdominal pain, chest pain, shortness a breath. She was recently discharged on 02/06/2025 and was diagnosed with CHF. During that hospitalization she had a cardiac catheterization showed patent coronary arteries. Echo cardiogram reviewed which shown reduced LV systolic function with an estimated EF of 34%, diastolic dysfunction. She was started on Lasix, high-dose statin, and aspirin 81 mg daily. She was then sent home with follow-up recommendation to Cardiology in 4 weeks. All 3 of her daughters were at the bedside and stated that she has been non compliant with her diet both for cardiac and diabetes. They also reported that she drinks a lot of fluid during the day. Last night is when she started getting short of breath and had difficulty resting so she decided to come to the ER for further evaluation. Workup in the hospital included a chest x-ray which showed asymmetric airspace disease of the right lung representing edema or pneumonia. Initial labs showed a white blood cell count of 16.8, hemoglobin 11.9, sodium 133, chloride 96, creatinine 0.67, blood sugars ranging 149-162, hemoglobin A1c 5.8, lactic acid was normal at 1.1, alkaline phosphate 149, troponin was negative, proBNP 6320, TSH was normal at 1.910. MRSA was negative. EKG showed sinus rhythm with a rate of 85, left bundle branch block, QTC 508. Patient was started on Rocephin and azithromycin, given 40 mg IV push Lasix while in the ED. VSS, she is afebrile, currently on room air. She states she feels much better. Communications Specialist seen patient and gave her educational material for diet. Her antibiotics were changed to Cefdinir and Azithromycin. She will need to finish her full course and then follow up with her PCP in 1 week. She is stable for discharge at this time. Final diagnosis: CHF exacerbation, acute hypoxemic respiratory failure, Community acquired pneumonia Status at Discharge Cognitive/behavioral status at discharge: Alert and oriented x3 Functional status at discharge: independent ambulation Overall status at discharge: patient is progressing back to baseline Time Spent with Patient Time attestation: Total time spent providing and/or coordinating discharge services: Time spent: Greater than 30 minutes Exam Narrative: General: In no acute distress, well nourished Cardiac: Normal S1 and S2. No murmur, gallops or friction rubs, peripheral pulses intact. Respiratory: Right upper and lower lobe course breath sounds, Left lung clear, no adventitious lung sounds, currently on room air Gastrointestinal: soft, non-distended, non-tender, normoactive bowel sounds. :tony catheter removed, patient voiding without difficulty Neuro: Alert and oriented x4 DS: Data Data Completed and Pending Completed studies during hospitalization: CXR Pending studies at discharge: Blood cultures Labs on day of discharge: Labs from last 24 hours 03/12/25 03/12/25 03/12/25 11:52 07:46 05:43 WBC 7.7 RBC 4.08 L Hgb 11.5 L Hct 35.6 L MCV 87.3 MCH 28.2 MCHC 32.3 RDW 13.8 Plt Count 314 MPV 9.5 Immature Gran % (Auto) 0.4 Neut % (Auto) 70.2 Lymph % (Auto) 18.3 Young % (Auto) 8.5 Eos % (Auto) 1.6 Baso % (Auto) 1.0 Lymph # (Auto) 1.40 Young # (Auto) 0.7 H Eos # (Auto) 0.1 Baso # (Auto) 0.1 Abs Immat Gran (auto) 0.03 Absolute Neuts (auto) 5.4 Absolute Nucleated RBC 0.000 Nucleated RBC % 0.0 Sodium 133 L Potassium 3.5 Chloride 97 L Carbon Dioxide 28 Anion Gap 8 BUN 11 Creatinine 0.64 L Estim Creat Clear Calc 61 Estimated GFR > 60 Glucose 145 H POC Capillary Glucose 146 H 153 H Calcium 8.5 Total Bilirubin 0.5 AST 19 ALT 17 Alkaline Phosphatase 112 Total Protein 6.0 L Albumin 3.7 Influenza A (RT-PCR) Influenza B (RT-PCR) RSV (RT-PCR) SARS-CoV-2 RNA (RT-PCR) 03/11/25 03/11/25 03/11/25 19:59 16:33 16:08 WBC RBC Hgb Hct MCV MCH MCHC RDW Plt Count MPV Immature Gran % (Auto) Neut % (Auto) Lymph % (Auto) Young % (Auto) Eos % (Auto) Baso % (Auto) Lymph # (Auto) Young # (Auto) Eos # (Auto) Baso # (Auto) Abs Immat Gran (auto) Absolute Neuts (auto) Absolute Nucleated RBC Nucleated RBC % Sodium Potassium Chloride Carbon Dioxide Anion Gap BUN Creatinine Estim Creat Clear Calc Estimated GFR Glucose POC Capillary Glucose 144 H 133 H Calcium Total Bilirubin AST ALT Alkaline Phosphatase Total Protein Albumin Influenza A (RT-PCR) Negative Influenza B (RT-PCR) Negative RSV (RT-PCR) Negative SARS-CoV-2 RNA (RT-PCR) Negative Preliminary micro results at discharge 03/11/25 08:50 Blood Culture - Preliminary Blood 03/11/25 08:41 Blood Culture - Preliminary Blood Procedures/Treatments: None Discharge Plan Discharge Attending physician on discharge: Justin Sharp Discharging Clinician: Bethany Ruiz Anticipated Discharge Date/Time: 03/12/25 14:31 Patient Disposition: Home Activity: as tolerated Diet: as tolerated and heart healthy Discharge Instructions: Finish your antibiotics as directed even if your feeling better Follow-up with your primary care doctor in 1 week Patient Instructions: Azithromycin (By mouth), Cefdinir (By mouth), Heart Failure (DC), Heart Healthy Diet (DC), Meal Planning with Diabetes Exchanges (DC), Community Acquired Pneumonia (DC), Diabetes and Nutrition (DC), Diabetes and Exercise (DC) Patient Language: Mexican Stand Alone Forms: General Discharge Information Follow-up/Referrals: Nona Núñez MD [Primary Care Provider] - 1 Week Discharge Medications: New azithromycin [Zithromax] 250 mg Tablet 500 mg PO DAILY Qty: 6 0RF cefdinir 300 mg capsule 300 mg PO Q12H Qty: 12 0RF Saccharomyces boulardii [Florastor] 250 mg capsule 250 mg PO BID Qty: 30 0RF Continued lisinopril 20 mg tablet 20 mg PO DAILY escitalopram oxalate 10 mg tablet 10 mg PO DAILY sodium chloride 1,000 mg tablet,soluble 1,000 mg PO DAILY buspirone 10 mg tablet 10 mg PO BID glimepiride 1 mg tablet 1 mg PO DAILY memantine 5 mg tablet 5 mg PO BID metformin 500 mg tablet 500 mg PO BID (DME) lancets [Accu-Chek Softclix Lancets] Misc See Rx Instructions .ROUTE .MEDSUPPLY Qty: 50 Rx Instructions: As directed (DME) Accu-Chek Guide test strips Strip See Rx Instructions .ROUTE .MEDSUPPLY Qty: 10 Rx Instructions: As directed (DME) blood-glucose meter [Accu-Chek Guide Me Glucose Mtr] Misc See Rx Instructions .ROUTE .MEDSUPPLY Qty: 1 Rx Instructions: As directed atorvastatin 40 mg tablet 20 mg PO QPM amlodipine 10 mg tablet 5 mg PO DAILY coenzyme Q10 [Co Q-10] 100 mg capsule 200 mg PO ONCE ascorbic acid (vitamin C) [Vitamin C] 500 mg tablet 500 mg PO DAILY ferrous sulfate 325 mg (65 mg iron) tablet 65 mg PO DAILY magnesium 200 mg tablet 400 mg PO BID carvedilol [Coreg] 12.5 mg Tablet 12.5 mg PO Q12HR Qty: 60 0RF docusate sodium 100 mg Capsule 100 mg PO Q12HR Qty: 60 0RF furosemide [Lasix] 20 mg tablet 20 mg PO DAILY Qty: 60 0RF aspirin [Vish Low Dose Aspirin] 81 mg tablet,delayed release (DR/EC) 81 mg PO DAILY Qty: 60 0RF sodium chloride 1,000 mg tablet,soluble 1,000 mg PO BID Qty: 60 0RF Date of admission: 03/11/25 08:50 Primary Care Provider: Nona Núñze Admitting Provider: Ena Matos Attending physician on admission: Ena Matos Condition: Improved Quality VTE Prophylaxis VTE prophylaxis: pharmacologic ordered Hospitalist MIPS Heart Failure (Exclusion) Patient has history of Heart Transplant or Left Ventricular Assistive Device?: No IF YES, STOP HERE Heart Failure (Qualifier) Patient has current or prior documentation of LVEF less than or equal to 40%, or mod/servere depressed LVSF?: Yes IF NO, STOP HERE If Yes, Heart Failure (Qualifier) Patient was prescribed or already taking an Angiotensin-Converting Enzyme (MARY) Inhibitor, or Antiotensin Receptor Vidya (ARB): Yes Patient was prescribed or already taking bisoprolol, carvedilol, or sustained release metoprolol succinate: Yes
[2025-03-14 17:52] LABS: Pneumococcal Antigen Urine NOT DETECTED
[2025-03-14 18:49] LABS: Legionella pneumophila Ag Ur NOT DETECTED
[2025-03-16 08:04] LABS: Source NG
== END 2025-03-12 16:45 | disposition home or self-care (01) | DRG 193 ==
LOC: ANHED 08:07 → ANH3MEDSUR 10:41
PROVIDERS: Admitting Provider Family Medicine; Emergency Provider Emergency Medicine; PCP Internal Medicine; Visit Provider Nurse Practitioner Acute Care
DX: J18.9 Pneumonia, unspecified organism (principal); I50.33 Acute on chronic diastolic (congestive) heart failure; J96.01 Acute respiratory failure with hypoxia; E87.1 Hypo-osmolality and hyponatremia; I11.0 Hypertensive heart disease with heart failure; E11.9 Type 2 diabetes mellitus without complications; E78.00 Pure hypercholesterolemia, unspecified; R33.9 Retention of urine, unspecified; Z96.659 Presence of unspecified artificial knee joint; Z90.710 Acquired absence of both cervix and uterus; Z90.49 Acquired absence of other specified parts of digestive tract
CPT/HCPCS: 36415; 71045; 80053; 82948; 83036; 83605; 83735; 83880; 84443; 84484; 85025; 87040; 87449; 87581; 87637; 87641; 87899; 93005; 94640; 96374; 99285; A9270; J0696; J1650; J1938

== ENCOUNTER 2025-03-15 07:40 | Observation (INO) | payer MEDICARE, SELFPAY ==
[2025-03-15] VITALS (28 sets, daily range): BP systolic 120–139; BP diastolic 48–81; PULSE 81–110; RESP 16–33; TEMP 36.4–37.2; O2SAT 89–99; BMI 25.2
--- NOTE | ~2025-03-15 | CT_ITS ---
CTA chest PE protocol Ordering provider: Robert Mart MD History: 74 years Female with . dyspnea with elevated D-dimer,CP . Comparison: None. Technique: CT angiogram chest was performed following timed intravenous injection of contrast. Thin s lice axial images and reformatted coronal images were obtained. Three dimensional reformatted images of the chest were also obtained using a [employer] workstation. . Automated exposure control and iterati ve reconstruction technique were employed. The dose-length product was 334.11 mGy-cm. 100 mL Omnipaqu e 350 was given IV. Radiation Findings: PULMONARY ARTERIES: No pulmonary embolus. VISUALIZED THORACIC INLET: Small left thyroid nodule. Ultrasound evaluation advised. Otherwise, Claire l. MEDIASTINUM: Aorta/coronary arteries: Mild atheromatous disease. Heart/other: The heart is not enlarged. Lymph nodes: No mediastinal or hilar adenopathy. LUNGS: Bilateral pleural effusion more on the right side with adjacent atelectasis. Bilateral groundglass ap pearance suggestive of pneumonia versus edema. RDS is not excluded. No pulmonary nodules or masses. N o pneumothorax. VISUALIZED UPPER ABDOMEN: Slightly prominent left adrenal gland small adenoma. Otherwise, the visuali zed upper abdomen is normal. MUSCULOSKELETAL: Soft tissues: The superficial soft tissues are normal. Bones: Age appropriate degenerative changes of the spine. IMPRESSION: 1. No pulmonary embolism. 2. Groundglass appearance in both lungs suggestive of pulmonary edema versus pneumonia. Clinical cor relation advised. 3. Bilateral pleural effusion more on the right side ro Reviewed, dictated and finalized at location A. IMPRESSION: 1. No pulmonary embolism. 2. Groundglass appearance in both lungs suggestive of pulmonary edema versus p neumonia. Clinical correlation advised. 3. Bilateral pleural effusion more on the right side ro
--- NOTE | ~2025-03-15 | XR_ITS ---
Portable chest x-ray Comparison: 03/11/2025 Clinical History: Shortness of breath Findings: Mild pulmonary edema pattern present with hazy perihilar and bibasilar airspace disease. Cardiomediastinal silhouette is stable. Bones and soft tissues are unremarkable. Impression: Mild pulmonary edema pattern. Reviewed, dictated and finalized at [facility]. Impression: Mild pulmonary edema pattern.
--- NOTE | 2025-03-15 07:56 | ECG_ITS ---
Test Date: 2025-03-15 08:02:25 Measurements Intervals [place] Rate: 96 P: 66 [place]: 196 QRS: 104 QRSD: 149 T: 44 QT: 395 QTc: 501 Interpretive Statements SINUS RHYTHM RIGHT AXIS DEVIATION LEFT BUNDLE BRANCH BLOCK BASELINE ARTIFACT- I, III, AVR, AVL, AVF, V5-V6 ABNORMAL ECG Compared to ECG 03/11/2025 07:52:39 NO SIGNIFICANT CHANGE Electronically Signed On 03-15-2025 09:10:06 CDT by Marito Cartwright D.O.
[2025-03-15 08:06] LABS: Basophils Absolute Auto 0.09 K/mm3 (0.00-0.10); Basophils Percent Auto 0.6 % (0.0-1.0); Eosinophils Absolute Auto 0.17 K/mm3 (0.02-0.50); Eosinophils Percent Auto 1.1 % (1.0-6.0); Hematocrit 39.8 % (35.0-42.0); Hemoglobin 12.7 g/dL (11.7-13.8); Immature Granulocyte Absolute 0.06 K/mm3 (0.00-0.00); Immature Granulocyte Percent A 0.4 % (0.0-0.0); Lymphocytes Absolute Auto 1.36 K/mm3 (1.10-4.50); Lymphocytes Percent Auto 9.2 % (18.0-42.0); Mean Corpuscular HGB Conc 31.9 g/dL (32-36); Mean Corpuscular Hemoglobin 28.3 pg (27.0-31.0); Mean Corpuscular Volume 88.8 fL (78.0-102.0); Mean Platelet Volume 9.5 fl (9.2-11.8); Monocytes Absolute Auto 0.37 K/mm3 (0.10-0.90); Monocytes Percent Auto 2.5 % (2.0-11.0); Neutrophils Absolute Auto 12.77 K/mm3 (1.70-7.20); Neutrophils Percent Auto 86.2 % (50.0-70.0); Platelet Count Result 384 K/mm3 (150-420); Red Blood Count 4.48 M/mm3 (4.20-5.40); Red Cell Distribution Width 13.9 % (11.6-14.4); White Blood Count 14.8 K/mm3 (4.8-10.8)
[2025-03-15 08:20] LABS: INR 0.9; Partial Thromboplastin Time 23.6 Sec (23.9-30.70); Prothrombin Time 10.4 Seconds (9.50-12.1)
[2025-03-15 08:23] LABS: D Dimer 1.65 mg/L (0.19-0.50)
[2025-03-15 08:26] LABS: Lactic Acid Reflex 1.2 mmol/L (0.4-2.0); Magnesium 1.8 mg/dL (1.8-2.4); Troponin I 19.3 ng/L (0.00-60.4)
[2025-03-15] MEDS: FUROSEMIDE INJ 40 MG/4 ML VIAL IV PUSH ×2 (08:26→17:26)
[2025-03-15 08:41] LABS: Add Urine Microscopic? NO; Appearance Urine Clear (Clear); Bilirubin Urine Negative (Negative); Blood Urine Negative (Negative); Color Urine Light Yellow (Yellow); Glucose Urine UA Negative (Negative); Ketones Urine Negative (Negative); Leukocyte Esterase Ur Negative LEU/UL (Negative); Nitrate Urine Negative (Negative); Protein Urine Negative (Negative); Urobilinogen Urine 0.2 mg/dL (0.2-1.0); pH Urine 7.5 (5.0-8.0)
[2025-03-15 08:44] LABS: Alanine Aminotransferase 23 U/L (14-59); Albumin Level 3.6 g/dL (3.4-5.0); Alkaline Phosphatase 139 U/L (46-116); Anion Gap 10 mmol/L (4-12); Aspartate Amino Transferase 15 U/L (15-37); Bilirubin,Total 0.7 mg/dL (0.00-1.00); Blood Urea Nitrogen 11 mg/dL (7-18); Calcium 8.6 mg/dL (8.5-10.1); Carbon Dioxide 27 mmol/L (21-32); Chloride 100 mmol/L (98-108); Estimated CRCL calculation 48 ml/min; Estimated Glomerular Filt Rate > 60; Glucose 234 mg/dL (70-99); NT Pro B Type Natriuretic Pept 6622 pg/mL (0-450); Osmolality Calculated 291 mOsm/kg (285-295); Potassium 4.2 mmol/L (3.5-5.1); Sodium 137 mmol/L (136-145); Total Protein 6.5 g/dL (6.4-8.2)
--- NOTE | 2025-03-15 08:52 | PC.NURSE ---
pt to xray via stretcher with xray staff
[2025-03-15 09:14] LABS: Influenza A QL RT-PCR Negative (Negative); Influenza B QL RT-PCR Negative (Negative); RSV RNA, RT-PCR Negative (Negative); SARS-CoV-2 RNA PCR Negative (Negative)
--- NOTE | 2025-03-15 09:44 | ED_ITS ---
HPI - SOB/Dyspnea General Chief Complaint: Shortness of Breath/Dyspnea Stated Complaint: shortness of breath Source: patient, family and EMS Mode of arrival: EMS Limitations: physical limitation History of Present Illness HPI Narrative: this is a 74-year-old female that was recently discharged from [facility] with some acute respiratory failure with CHF with an ejection fraction around 35% with systolic dysfunction, and pneumonia. The patient was discharged on Wednesday. Patient states that she has not felt better since discharge and early this morning felt some extremely short of breath and called EMS. EMS upon arrival had O2 sats around 85% on room air and was given nebulizer treatment and Solu- Medrol. And started on 2L of oxygen. Currently the patient is dyspneic with no chest pain does have a mild productive cough with yellow sputum with no fever chills. Patient denies any nausea vomiting abdominal pain no dysuria or hematuria no flank pain. MD elicited complaint: shortness of breath Pertinent past history: congestive heart failure and pneumonia Onset (ago): day(s) Context: recent illness Timing: constant Severity: moderate Exacerbating factors: nothing Relieving factors: oxygen, bronchodilators and upright position Known history of: congestive heart failure and recurrent pneumonia Associated symptoms: denies other symptoms Related Data Home Medications ?Medication ?Instructions ?Recorded ?Confirmed ?Last Taken ?Type blood sugar diagnostic (Accu-Chek #10 ea 10/05/19 03/11/25 Unknown History Guide test strips) blood-glucose meter (Accu-Chek #1 ea 10/05/19 03/11/25 Unknown History Guide Me Glucose Meter) lancets (Accu-Chek Softclix #50 ea 10/05/19 03/11/25 Unknown History Lancets) metformin 500 mg tablet 500 mg PO BID 10/05/19 03/11/25 02/01/25 History ascorbic acid (vitamin C) 500 mg 500 mg PO DAILY 02/02/25 03/11/25 02/01/25 History tablet (Vitamin C) buspirone 10 mg tablet 10 mg PO BID 02/02/25 03/11/25 02/01/25 History coenzyme Q10 100 mg capsule (Co 200 mg PO ONCE 02/02/25 03/11/25 02/01/25 History Q-10) escitalopram oxalate 10 mg tablet 10 mg PO DAILY 02/02/25 03/11/25 02/01/25 History ferrous sulfate 325 mg (65 mg 65 mg PO DAILY 02/02/25 03/11/25 02/01/25 History iron) tablet glimepiride 1 mg tablet 1 mg PO DAILY 02/02/25 03/11/25 02/01/25 History lisinopril 20 mg tablet 20 mg PO DAILY 02/02/25 03/11/25 02/01/25 History magnesium 200 mg tablet 400 mg PO BID 02/02/25 03/11/25 02/01/25 History memantine 5 mg tablet 5 mg PO BID 02/02/25 03/11/25 02/01/25 History sodium chloride 1,000 mg soluble 1,000 mg PO DAILY 02/02/25 03/11/25 02/01/25 History tablet amlodipine 10 mg tablet 5 mg PO DAILY 03/11/25 03/11/25 Unknown History atorvastatin 40 mg tablet 20 mg PO QPM 03/11/25 03/11/25 Unknown History Allergies Allergy/AdvReac Type Severity Reaction Status Date / Time Iodinated Contrast Media Allergy Mild Unknown Verified 03/15/25 08:54 adhesive tape Allergy Unknown BLISTERS Verified 03/15/25 08:15 ampicillin Allergy Unknown rash Verified 03/15/25 08:15 diazepam Allergy Unknown rash Verified 03/15/25 08:15 meperidine Allergy Unknown GI upset Verified 03/15/25 08:15 Penicillins Allergy Unknown rash Verified 03/15/25 08:15 Review of Systems 2 Review of Systems: All systems reviewed & are unremarkable except as noted in HPI and below PMFSH Past Medical History Medical History High cholesterol HTN (hypertension) History of seizure only one time Depression Diabetes Injury of toenail Third degree hemorrhoids Surgical History Surgical History Hx of cholecystectomy History of knee joint replacement H/O neck surgery H/O rotator cuff surgery History of carpal tunnel surgery History of hysterectomy Family History Family History Sibling Hypertension Family history of elevated blood lipids Family history of cardiovascular disease Father Family history of cardiovascular disease Mother Family history of Alzheimer's disease Other Cerebrovascular accident Diabetes mellitus Family history of kidney disease Family history of malignant neoplasm Social History Social History Smoking status: Never smoker Second hand tobacco smoke exposure: No Alcohol intake: never Substance use: never Substance use type: does not use Do You Feel Safe in your Home?: Yes Lack of Transportation: No Lack of Food: Never True Current Housing: I Have Housing Concerned About Future Housing: No Difficulty Paying Gas/Electric Bills: No Difficulty Paying for Meds: No Currently Unemployed: No Education: Associate Degree Difficulty w/ Childcare or Family Care: No Spiritual care concerns: No Exam 2 Const: General: ill appearing Nutritional Appearance: well nourished O rientation/consciousness: patient oriented x3 Limitations: no limitations HENMT: Head: normal to inspection Eyes: Conjunctivae: conjunctivae normal Neck: Neck: normal visual inspection, no lymphadenopathy and no meningeal signs Chest: Chest palpation & inspection: normal inspection of the chest Resp: Effort & Inspection: normal respiratory effort Auscultation: rales and rhonchi Cardio: Rate: regular rate Rhythm: regular rhythm GI: GI Palp: Yes Soft to palpation Auscultation: normal bowel sounds Urinary Catheter: Urinary Catheter: patent and draining Back/Spine/Pelvis: Back: no CVA tenderness Skin: General skin exam: normal color Neuro: General: patient oriented x3 and moves all extremities Extrem: General: normal to inspection Course Course Emergency Course: Patient with some dyspnea with some O2 saturations around 88 to 92 on 4L of oxygen had a positive D-dimer and subsequent CTA showed no pulmonary embolism but there is some mild effusion and evidence [place] [address], will start on Levaquin IV, patient also received 40mg IA 50 Lasix and has a BNP over 6000. CMP is some creatinine 0.83 with a glucose of 234 sodium is 137 potassium 4.2, lactic acid is within normal range troponins within normal range D-dimer was elevated. And BNP was 6622 . After speaking to hospitalist will admit patient to hospital. Vital Signs Vital signs: Vital Signs Temperature 37.2 C 03/15/25 07:40 Pulse Rate 108 H 03/15/25 07:40 Respiratory Rate 30 H 03/15/25 07:40 Blood Pressure 139/81 03/15/25 07:40 Pulse Oximetry 89 L 03/15/25 07:40 Oxygen Delivery Nasal Cannula 03/15/25 07:40 Oxygen Flow Rate 4 03/15/25 07:40 Temperature 36.7 C 03/15/25 09:11 Pulse Rate 89 03/15/25 09:31 Respiratory Rate 24 H 03/15/25 09:31 Blood Pressure 124/72 03/15/25 09:30 Pulse Oximetry 92 03/15/25 09:31 Oxygen Delivery Nasal Cannula 03/15/25 09:31 Oxygen Flow Rate 2 03/15/25 09:31 MDM - SOB/Dyspnea Lab Data 03/15/25 08:00 03/15/25 08:00 Labs: Lab Results 03/15/25 03/15/25 03/15/25 Range/Units 08:00 08:00 08:27 WBC 14.8 H (4.8-10.8) K/mm3 RBC 4.48 (4.20-5.40) M/mm3 Hgb 12.7 (11.7-13.8) g/dL Hct 39.8 (35.0-42.0) % MCV 88.8 (78.0-102.0) fL MCH 28.3 (27.0-31.0) pg MCHC 31.9 L (32-36) g/dL RDW 13.9 (11.6-14.4) % Plt Count 384 (150-420) K/mm3 MPV 9.5 (9.2-11.8) fl Immature Gran % (Auto) 0.4 H (0.0-0.0) % Neut % (Auto) 86.2 H (50.0-70.0) % Lymph % (Auto) 9.2 L (18.0-42.0) % [place] % (Auto) 2.5 (2.0-11.0) % Eos % (Auto) 1.1 (1.0-6.0) % Baso % (Auto) 0.6 (0.0-1.0) % Lymph # (Auto) 1.36 (1.10-4.50) K/mm3 [place] # (Auto) 0.37 (0.10-0.90) K/mm3 Eos # (Auto) 0.17 (0.02-0.50) K/mm3 Baso # (Auto) 0.09 (0.00-0.10) K/mm3 Abs Immat Gran (auto) 0.06 H (0.00-0.00) K/mm3 Absolute Neuts (auto) 12.77 H (1.70-7.20) K/mm3 Absolute Nucleated RBC 0.00 (0.00-0.00) K/mm3 Nucleated RBC % 0.0 (0-0.0) % PT 10.4 (9.50-12.1) Seconds INR 0.9 APTT 23.6 L (23.9-30.70) Sec D-Dimer Cancelled 1.65 H* Sodium 137 (136-145) mmol/L Potassium 4.2 (3.5-5.1) mmol/L Chloride 100 (98-108) mmol/L Carbon Dioxide 27 (21-32) mmol/L Anion Gap 10 (4-12) mmol/L BUN 11 (7-18) mg/dL Creatinine 0.83 (0.55-1.02) mg/dL Estim Creat Clear Calc 48 ml/min Estimated GFR > 60 (59 - ) Glucose 234 H (70-99) mg/dL Calculated Osmolality 291 (285-295) mOsm/kg Lactic Acid 1.2 (0.4-2.0) mmol/L Calcium 8.6 (8.5-10.1) mg/dL Magnesium 1.8 (1.8-2.4) mg/dL Total Bilirubin 0.7 (0.00-1.00) mg/dL AST 15 (15-37) U/L ALT 23 (14-59) U/L Alkaline Phosphatase 139 H (46-116) U/L Troponin I 19.3 (0.00-60.4) ng/L NT-Pro-B Natriuret Pep 6622 H (0-450) pg/mL Total Protein 6.5 (6.4-8.2) g/dL Albumin 3.6 (3.4-5.0) g/dL Urine Color Light yellow (Yellow) Urine Appearance Clear (Clear) Urine pH 7.5 (5.0-8.0) Ur Specific [place] 1.010 (1.010-1.020) Urine Protein Negative (Negative) Urine Glucose (UA) Negative (Negative) Urine Ketones Negative (Negative) Ur Blood (Man) Negative (Negative) Urine Nitrate Negative (Negative) Urine Bilirubin Negative (Negative) Urine Urobilinogen 0.2 (0.2-1.0) mg/dL Leukocyte Esterase Rfl Negative (Negative) PADMINI/UL Influenza A (RT-PCR) (Negative) Influenza B (RT-PCR) (Negative) RSV (RT-PCR) (Negative) SARS-CoV-2 RNA (RT-PCR) (Negative) 03/15/25 Range/Units 08:35 WBC (4.8-10.8) K/mm3 RBC (4.20-5.40) M/mm3 Hgb (11.7-13.8) g/dL Hct (35.0-42.0) % MCV (78.0-102.0) fL MCH (27.0-31.0) pg MCHC (32-36) g/dL RDW (11.6-14.4) % Plt Count (150-420) K/mm3 MPV (9.2-11.8) fl Immature Gran % (Auto) (0.0-0.0) % Neut % (Auto) (50.0-70.0) % Lymph % (Auto) (18.0-42.0) % [place] % (Auto) (2.0-11.0) % Eos % (Auto) (1.0-6.0) % Baso % (Auto) (0.0-1.0) % Lymph # (Auto) (1.10-4.50) K/mm3 [place] # (Auto) (0.10-0.90) K/mm3 Eos # (Auto) (0.02-0.50) K/mm3 Baso # (Auto) (0.00-0.10) K/mm3 Abs Immat Gran (auto) (0.00-0.00) K/mm3 Absolute Neuts (auto) (1.70-7.20) K/mm3 Absolute Nucleated RBC (0.00-0.00) K/mm3 Nucleated RBC % (0-0.0) % PT (9.50-12.1) Seconds INR APTT (23.9-30.70) Sec D-Dimer Sodium (136-145) mmol/L Potassium (3.5-5.1) mmol/L Chloride (98-108) mmol/L Carbon Dioxide (21-32) mmol/L Anion Gap (4-12) mmol/L BUN (7-18) mg/dL Creatinine (0.55-1.02) mg/dL Estim Creat Clear Calc ml/min Estimated GFR (59 - ) Glucose (70-99) mg/dL Calculated Osmolality (285-295) mOsm/kg Lactic Acid (0.4-2.0) mmol/L Calcium (8.5-10.1) mg/dL Magnesium (1.8-2.4) mg/dL Total Bilirubin (0.00-1.00) mg/dL AST (15-37) U/L ALT (14-59) U/L Alkaline Phosphatase (46-116) U/L Troponin I (0.00-60.4) ng/L NT-Pro-B Natriuret Pep (0-450) pg/mL Total Protein (6.4-8.2) g/dL Albumin (3.4-5.0) g/dL Urine Color (Yellow) Urine Appearance (Clear) Urine pH (5.0-8.0) Ur Specific [place] (1.010-1.020) Urine Protein (Negative) Urine Glucose (UA) (Negative) Urine Ketones (Negative) Ur Blood (Man) (Negative) Urine Nitrate (Negative) Urine Bilirubin (Negative) Urine Urobilinogen (0.2-1.0) mg/dL Leukocyte Esterase Rfl (Negative) PADMINI/UL Influenza A (RT-PCR) Negative (Negative) Influenza B (RT-PCR) Negative (Negative) RSV (RT-PCR) Negative (Negative) SARS-CoV-2 RNA (RT-PCR) Negative (Negative) Critical Care Time Critical Care Time Critical Care Time: No Discharge Plan Discharge Clinical Impression: HFrEF (heart failure with reduced ejection fraction) Pneumonia Qualifiers: Pneumonia type: due to unspecified organism Laterality: unspecified laterality Lung location: lower lobe of lung Qualified Code(s): J18.9 - Pneumonia, unspecified organism Patient Disposition: Acute Care Hospital Condition: Guarded Prognosis Patient Language: Thai Prescriptions: No Action lisinopril 20 mg tablet 20 mg PO DAILY escitalopram oxalate 10 mg tablet 10 mg PO DAILY sodium chloride 1,000 mg tablet,soluble 1,000 mg PO DAILY buspirone 10 mg tablet 10 mg PO BID glimepiride 1 mg tablet 1 mg PO DAILY memantine 5 mg tablet 5 mg PO BID metformin 500 mg tablet 500 mg PO BID (DME) lancets [Accu-Chek Softclix Lancets] Misc See Rx Instructions .ROUTE .MEDSUPPLY Qty: 50 Rx Instructions: As directed (DME) Accu-Chek Guide test strips Strip See Rx Instructions .ROUTE .MEDSUPPLY Qty: 10 Rx Instructions: As directed (DME) blood-glucose meter [Accu-Chek Guide Me Glucose Mtr] Misc See Rx Instructions .ROUTE .MEDSUPPLY Qty: 1 Rx Instructions: As directed atorvastatin 40 mg tablet 20 mg PO QPM amlodipine 10 mg tablet 5 mg PO DAILY azithromycin [Zithromax] 250 mg Tablet 500 mg PO DAILY Qty: 6 0RF cefdinir 300 mg capsule 300 mg PO Q12H Qty: 12 0RF Saccharomyces boulardii [Florastor] 250 mg capsule 250 mg PO BID Qty: 30 0RF coenzyme Q10 [Co Q-10] 100 mg capsule 200 mg PO ONCE ascorbic acid (vitamin C) [Vitamin C] 500 mg tablet 500 mg PO DAILY ferrous sulfate 325 mg (65 mg iron) tablet 65 mg PO DAILY magnesium 200 mg tablet 400 mg PO BID carvedilol [Coreg] 12.5 mg Tablet 12.5 mg PO Q12HR Qty: 60 0RF docusate sodium 100 mg Capsule 100 mg PO Q12HR Qty: 60 0RF furosemide [Lasix] 20 mg tablet 20 mg PO DAILY Qty: 60 0RF aspirin [Vish Low Dose Aspirin] 81 mg tablet,delayed release (DR/EC) 81 mg PO DAILY Qty: 60 0RF sodium chloride 1,000 mg tablet,soluble 1,000 mg PO BID Qty: 60 0RF Follow-up/Referrals: Nona Núñez MD [Primary Care Provider] - Time of Disposition: 09:56
[2025-03-15] MEDS: levoFLOXacin 500 MG/D5W 100 ML 500 MG/100 ML BAG 100 MG IVPB (09:59)
--- NOTE | 2025-03-15 10:24 | P.HP_ITS ---
H&P: HPI History of Present Illness Date/Time: 03/15/25 10:24 Chief Complaint: SOB Narrative: This is a 74-year-old female with a significant past medical history of hyperlipidemia, hypertension, depression, type 2 diabetes mellitus, CHF who presented to the hospital with shortness of breath that started last night and developed a cough. Patient was admitted to [facility] and discharged on 03/12/2025 at the time she was treated for CHF exacerbation as well as pneumonia discharged home on azithromycin and cefdinir. she presented to the emergency department today with worsening shortness of breath since discharge reported she did not feel back to baseline even after discharge continued to have shortness a breath. She denies any fevers, chills, nausea, vomiting, diarrhea, abdominal pain, chest pain. She was also recently discharged on 02/06/2025 and was diagnosed with CHF. During that hospitalization she had a cardiac catheterization showed patent coronary arteries. Echo cardiogram reviewed which shown reduced LV systolic function with an estimated EF of 34%, diastolic dysfunction. She was started on Lasix 20mg daily, high-dose statin, and aspirin 81 mg daily. She was then sent home with follow-up recommendation to Cardiology in 4 weeks. All 3 of her daughters were at the bedside and stated that she has been non compliant with her diet and fluid restriction. CXR consistent with pulmonary edema she did have an elevated D-dimer and a CTA was performed that showed no pulmonary embolism but was suggestive of pulmonary edema versus pneumonia will treat for acute exacerbation of heart failure less likely pneumonia since patient was being treated with oral antibiotics outpatient. labs reviewed with elevated BNP 6622 and previous 3 days ago was 6320 and mild leukocytosis likely reactive. patient was then admitted to the medical unit for further evaluation and treatment of acute on chronic CHF exacerbation. Patient family at bedside reporting that she has been having urinary retention, tony was placed in the ED with over 1300 output. Review of Systems Review of Systems: All systems reviewed & are unremarkable except as noted in HPI and below PMFSH Past Medical History Medical History High cholesterol HTN (hypertension) History of seizure only one time Depression Diabetes Injury of toenail Third degree hemorrhoids Surgical History Surgical History Hx of cholecystectomy History of knee joint replacement H/O neck surgery H/O rotator cuff surgery History of carpal tunnel surgery History of hysterectomy Family History Family History Sibling Hypertension Family history of elevated blood lipids Family history of cardiovascular disease Father Family history of cardiovascular disease Mother Family history of Alzheimer's disease Other Cerebrovascular accident Diabetes mellitus Family history of kidney disease Family history of malignant neoplasm Social History Social History (Updated 03/15/25 @ 11:23 by Jessi Villeda RN) Smoking status: Never smoker Second hand tobacco smoke exposure: No Alcohol intake: never Substance use: never Substance use type: does not use Do You Feel Safe in your Home?: Yes Lack of Transportation: No Lack of Food: Never True Current Housing: I Have Housing Concerned About Future Housing: No Difficulty Paying Gas/Electric Bills: No Difficulty Paying for Meds: No Currently Unemployed: No Education: Associate Degree Difficulty w/ Childcare or Family Care: No Living arrangements: with family Occupation/Education: retired Gender identity (if verbalized by the patient): Female Sexual Orientation (if Verbalized by the Patient): Straight or Heterosexual Spiritual care concerns: No Meds Home Medications and Allergies Home Medications ?Medication ?Instructions ?Recorded ?Confirmed ?Type blood sugar diagnostic (Accu-Chek #10 ea 10/05/19 03/15/25 History Guide test strips) blood-glucose meter (Accu-Chek #1 ea 10/05/19 03/15/25 History Guide Me Glucose Meter) lancets (Accu-Chek Softclix #50 ea 10/05/19 03/15/25 History Lancets) metformin 500 mg tablet 500 mg PO BID 10/05/19 03/15/25 History ascorbic acid (vitamin C) 500 mg 500 mg PO DAILY 02/02/25 03/15/25 History tablet (Vitamin C) buspirone 10 mg tablet 10 mg PO BID 02/02/25 03/15/25 History coenzyme Q10 100 mg capsule (Co 200 mg PO DAILY 02/02/25 03/15/25 History Q-10) escitalopram oxalate 10 mg tablet 10 mg PO DAILY 02/02/25 03/15/25 History ferrous sulfate 325 mg (65 mg 65 mg PO DAILY 02/02/25 03/15/25 History iron) tablet glimepiride 1 mg tablet 1 mg PO DAILY 02/02/25 03/15/25 History lisinopril 20 mg tablet 20 mg PO DAILY 02/02/25 03/15/25 History magnesium 200 mg tablet 400 mg PO BID 02/02/25 03/15/25 History memantine 5 mg tablet 5 mg PO BID 02/02/25 03/15/25 History aspirin 81 mg tablet,delayed 81 mg PO DAILY #60 tabs 02/06/25 03/15/25 Rx release (Vish Low Dose Aspirin) carvedilol 12.5 mg tablet (Coreg) 12.5 mg PO Q12HR #60 tabs 02/06/25 03/15/25 Rx docusate sodium 100 mg capsule 100 mg PO Q12HR #60 caps 02/06/25 03/15/25 Rx furosemide 20 mg tablet (Lasix) 20 mg PO DAILY #60 tabs 02/06/25 03/15/25 Rx sodium chloride 1,000 mg soluble 1,000 mg PO BID #60 tabs 02/06/25 03/15/25 Rx tablet amlodipine 10 mg tablet 5 mg PO DAILY 03/11/25 03/15/25 History atorvastatin 40 mg tablet 20 mg PO QPM 03/11/25 03/15/25 History Saccharomyces boulardii 250 mg 250 mg PO BID #30 caps 03/12/25 03/15/25 Rx capsule (Florastor) azithromycin 250 mg tablet 500 mg (2 x 250 mg) PO DAILY #6 03/12/25 03/15/25 Rx (Zithromax) tabs cefdinir 300 mg capsule 300 mg PO Q12H #12 caps 03/12/25 03/15/25 Rx Allergies Allergy/AdvReac Type Severity Reaction Status Date / Time Iodinated Contrast Media Allergy Mild Unknown Verified 03/15/25 08:54 adhesive tape Allergy Unknown BLISTERS Verified 03/15/25 08:15 ampicillin Allergy Unknown rash Verified 03/15/25 08:15 diazepam Allergy Unknown rash Verified 03/15/25 08:15 meperidine Allergy Unknown GI upset Verified 03/15/25 08:15 Penicillins Allergy Unknown rash Verified 03/15/25 08:15 Vital Signs Vital Signs - 24 hr 03/15/25 07:40 03/15/25 07:51 03/15/25 07:52 Temperature 99.0 F Pulse Rate 108 H 110 H 104 H Respiratory Rate 30 H 33 H 25 H Blood Pressure 139/81 139/81 Pulse Oximetry 89 L 90 92 Oxygen Delivery Nasal Cannula Nasal Cannula Oxygen Flow Rate 4 4 03/15/25 07:54 03/15/25 07:54 03/15/25 08:00 Temperature Pulse Rate 102 H 97 Respiratory Rate 31 H Blood Pressure Pulse Oximetry 91 Oxygen Delivery Nasal Cannula Oxygen Flow Rate 4 03/15/25 08:15 03/15/25 08:30 03/15/25 08:36 Temperature Pulse Rate 97 92 93 Respiratory Rate 25 H 29 H 27 H Blood Pressure 121/48 L Pulse Oximetry 91 Oxygen Delivery Nasal Cannula Oxygen Flow Rate 4 03/15/25 08:45 03/15/25 08:46 03/15/25 08:48 Temperature Pulse Rate 87 85 85 Respiratory Rate 21 H 23 H 18 Blood Pressure 123/65 123/65 Pulse Oximetry 92 91 92 Oxygen Delivery Nasal Cannula Oxygen Flow Rate 4 03/15/25 09:07 03/15/25 09:08 03/15/25 09:11 Temperature 98.1 F Pulse Rate 90 89 Respiratory Rate 16 22 H Blood Pressure 128/69 Pulse Oximetry 95 94 Oxygen Delivery Nasal Cannula Oxygen Flow Rate 2 03/15/25 09:15 03/15/25 09:16 03/15/25 09:30 Temperature Pulse Rate 88 82 88 Respiratory Rate 17 18 25 H Blood Pressure 124/65 124/72 Pulse Oximetry 91 97 92 Oxygen Delivery Oxygen Flow Rate 03/15/25 09:31 03/15/25 09:45 03/15/25 09:46 Temperature Pulse Rate 89 90 85 Respiratory Rate 24 H 22 H 24 H Blood Pressure 127/77 Pulse Oximetry 92 91 90 Oxygen Delivery Nasal Cannula Nasal Cannula Oxygen Flow Rate 2 2 03/15/25 10:00 03/15/25 10:01 Temperature Pulse Rate 90 88 Respiratory Rate 22 H 20 Blood Pressure 131/79 Pulse Oximetry 90 93 Oxygen Delivery Nasal Cannula Oxygen Flow Rate 2 Exam Narrative: General: In no acute distress, well nourished Head: atraumatic, no encephalopathy Eyes: PERRLA, sclera clear ENT: moist mucous membranes, nasal passages clear Neck: supple, no JVD, no adenopathy, trachea midline Cardiac: Normal S1 and S2. No murmur, gallops or friction rubs, peripheral pulses intact. Respiratory: diminished lower and middle lobes, clear to auscultation on bilateral upper lobes on 2L NC Gastrointestinal: soft, non-distended, non-tender, normoactive bowel sounds. :Urinary retention tony draining clear yellow urine Extremities: moves all extremities well, no edema Skin: clean, dry, intact. No wounds or lesions. Neuro: Alert and oriented x4, cranial nerves intact, no neuro deficits. Psych: normal mood, normal affect, interactive H&P: Results Labs Labs: Short CBC 03/15/25 Range/Units 08:00 WBC 14.8 H (4.8-10.8) K/mm3 Hgb 12.7 (11.7-13.8) g/dL Hct 39.8 (35.0-42.0) % Plt Count 384 (150-420) K/mm3 BMP 03/15/25 08:00 Sodium 137 Potassium 4.2 Chloride 100 Carbon Dioxide 27 BUN 11 Creatinine 0.83 Glucose 234 H Calcium 8.6 Cardiac Enzymes 03/15/25 Range/Units 08:00 Troponin I 19.3 (0.00-60.4) ng/L Liver Function 03/15/25 Range/Units 08:00 Total Bilirubin 0.7 (0.00-1.00) mg/dL AST 15 (15-37) U/L ALT 23 (14-59) U/L Alkaline Phosphatase 139 H (46-116) U/L Albumin 3.6 (3.4-5.0) g/dL Urine 03/15/25 Range/Units 08:27 Urine Color Light yellow (Yellow) Urine Appearance Clear (Clear) Urine pH 7.5 (5.0-8.0) Ur Specific [place] 1.010 (1.010-1.020) Urine Protein Negative (Negative) Urine Glucose (UA) Negative (Negative) Assessment and Plan Assessment and plan (1) Acute hypoxemic respiratory failure: Code(s): J96.01 - Acute respiratory failure with hypoxia Status: Acute Assessment and Plan: Patient being treated for pneumonia on oral antibiotics and acute exacerbation of her systolic dysfunction discharged from [place] on 03/12/2025. Presented to the ED hypoxic at 89% to was then placed on 2 L nasal cannula supplemental oxygen and given a dose of furosemide IV 40 mg. CXR showing pulmonary edema CTA consistent with pulmonary edema no PE * Currently on 2 L nasal cannula * Wean O2 for oxygen saturation greater than 92% (2) HFrEF (heart failure with reduced ejection fraction): Code(s): I50.20 - Unspecified systolic (congestive) heart failure Status: Acute Assessment and Plan: Patient with multiple admissions due to CHF exacerbation just discharged on 03/12/2025 currently was only on Lasix 20 mg daily Echocardiogram from 02/02/2025 showed reduced EF of 30-35%, diastolic dysfunction. Recent cardiac catheterization showed patent coronary arteries, CXR consistent with pulmonary edema. To likely need increase Lasix at discharge as scheduled follow-up appointment in 4 weeks with Cardiology * Started IV lasix 40mg BID * Obtain daily weight * Strict I&O * Heart healthy diet * Fluid restriction 1800 mL daily (3) HTN (hypertension): Qualifiers: Hypertension type: primary hypertension Qualified Code(s): I10 - Essential (primary) hypertension Code(s): I10 - Essential (primary) hypertension Status: Chronic Assessment and Plan: Patient reports a chronic cough over the last 2 to 3 months I will discontinue her Lisinopril and increase her amlodipine * Continue amlodipine incerased to 10mg and Coreg * discontinued lisinopril * monitor BP per unit protocol (4) Diabetes: Qualifiers: Diabetes mellitus complication status: with hyperglycemia Diabetes mellitus long-term insulin use: without long-term use Diabetes mellitus type: type 2 Qualified Code(s): E11.65 - Type 2 diabetes mellitus with hyperglycemia Code(s): E11.9 - Type 2 diabetes mellitus without complications Status: Chronic Assessment and Plan: * Hgb A1C 5.8 * Accu checks AC/HS * Low dose SS * Will hold metformin and glimepiride * hypoglycemic protocol in place * Diabetic diet ordered * Dietitian consulted--patient has been noncompliant with a diabetic diet (5) High cholesterol: Code(s): E78.00 - Pure hypercholesterolemia, unspecified Status: Chronic Assessment and Plan: * Continue aspirin and atorvastatin (6) Urinary retention: Code(s): R33.9 - Retention of urine, unspecified Status: Acute Assessment and Plan: Patient had urinary tension on previous hospitalization family reported she continues to have urinary tension at home Tony catheter was placed in the emergency department to which yielded over 1300 mL * Started Flomax * Attempt voiding trials 1-2 days if continued urinary retention may need Urology referral outpatient (7) Pneumonia: Code(s): J18.9 - Pneumonia, unspecified organism Status: Acute Assessment and Plan: Patient was being treated with oral cefdinir and azithromycin outpatient will resume both inpatient to complete her therapy she did however receive 1 dose of Levaquin in the emergency department * continue oral cefdinir and azithromycin Plan Code status: Full code per patient DVT prophylaxis: Lovenox Stress ulcer prophylaxis: Protonix 40 daily PT/OT notes: Pending Disposition: Patient admitted to the medical unit continuous cardiac monitoring for acute respiratory failure with hypoxia secondary to CHF exacerbation will continue with IT diuresis and wean supplemental oxygen PT/OT has been ordered podiatrist assistant any further discharge planning needs plan is to discharge to home when medically stable. Quality VTE Prophylaxis VTE prophylaxis: pharmacologic ordered -Patient's previous records reviewed on admission -ER notes reviewed in detail on admission -discussed all findings and current treatment plan with patient/Family/POA -Consultations reviewed for recommendations -Patient's disposition for safe discharge discussed with case management manager Dictation performed by [employer] direct speech recognition software, therefore stand up comedian variants and typographical errors may occur. Hospitalist MIPS Advance Care Plan I have confirmed that the patient's Advanced Care Plan is present, code status is documented, or surrogate decision maker is listed in patient medical record.: Yes Medication Reconciliation I have utilized all available resources to obtain, update and review the p atients current medications (includes all prescriptions, OTC, herbals, cannabis, and nutritional supplements).: Yes The patient is not eligible for med reconciliation; the patient is in a emergent medical situation where delaying treatment would jeopardize the patients health.: No
--- NOTE | 2025-03-15 11:19 | PC.NURSE ---
Pt arrives on the floor at 1035. She is A/Ox3, VSS. Pt denies pain at this time. Null is patent and draining clear yellow urine. IV access 18G in RAC.
[2025-03-15 11:45] LABS: Glucose Point of Care 292 mg/dl (65-105)
[2025-03-15] MEDS: INSULIN HUMAN LISPRO (*BKC) 1,000 UNITS/10 ML VIAL SUB-Q ×2 (12:47→17:31)
[2025-03-15] MEDS: TAMSULOSIN HCL 0.4 MG CAPSULE PO (14:22)
[2025-03-15] MEDS: CEFDINIR 300 MG CAPSULE PO (14:22)
[2025-03-15] MEDS: SACCHAROMYCES BOULARDII 250 MG CAPSULE PO (17:26)
[2025-03-15] MEDS: busPIRone HCL 10 MG TABLET PO (17:26)
[2025-03-15] MEDS: MAGNESIUM OXIDE 400 MG TABLET PO (17:26)
[2025-03-15] MEDS: MEMANTINE 5 MG TABLET PO (17:26)
[2025-03-15] MEDS: SODIUM CHLORIDE 1 GM TABLET PO (17:26)
[2025-03-15] MEDS: ATORVASTATIN 10 MG TABLET 20 MG PO (17:28)
[2025-03-15 17:31] LABS: Glucose Point of Care 302 mg/dl (65-105)
[2025-03-15 19:15] LABS: Glucose Point of Care 261 mg/dl (65-105)
[2025-03-15] MEDS: DOCUSATE SODIUM 100 MG CAPSULE PO (20:22)
[2025-03-15] MEDS: carvediloL 12.5 MG TABLET PO (20:22)
[2025-03-15] MEDS: ACETAMINOPHEN 325 MG TABLET 650 MG PO (20:22)
[2025-03-16] VITALS (8 sets, daily range): BP systolic 111–126; BP diastolic 55–71; PULSE 62–89; RESP 12–16; TEMP 35.9–36.9; O2SAT 95–97
[2025-03-16] MEDS: CEFDINIR 300 MG CAPSULE PO ×2 (01:53→14:20)
[2025-03-16 08:04] LABS: Glucose Point of Care 173 mg/dl (65-105)
--- NOTE | 2025-03-16 08:59 | P.PNIM_ITS ---
Progress Note: A&P Assessment and Plan (1) Acute hypoxemic respiratory failure: Code(s): J96.01 - Acute respiratory failure with hypoxia Status: Acute Assessment and Plan: Patient being treated for pneumonia on oral antibiotics and acute exacerbation of her systolic dysfunction discharged from [facility] on 03/12/2025. Presented to the ED hypoxic at 89% to was then placed on 2 L nasal cannula supplemental oxy gen and given a dose of furosemide IV 40 mg. CXR showing pulmonary edema CTA consistent with pulmonary edema no PE * weaned of 2L on RA at 95% * Wean O2 for oxygen saturation greater than 92% (2) HFrEF (heart failure with reduced ejection fraction): Code(s): I50.20 - Unspecified systolic (congestive) heart failure Status: Acute Assessment and Plan: Patient with multiple admissions due to CHF exacerbation just discharged on 03/12/2025 currently was only on Lasix 20 mg daily Echocardiogram from 02/02/2025 showed reduced EF of 30-35%, diastolic dysfunction. Recent cardiac catheterization showed patent coronary arteries, CXR consistent with pulmonary edema. To likely need increase Lasix at discharge as scheduled follow-up appointment in 4 weeks with Cardiology. Patient with adequate output with diuresis will continue IV Lasix today and transition to oral tomorrow will need increased to at least 40mg daily * Started IV lasix 40mg BID * Obtain daily weight * Strict I&O * Heart healthy diet * Fluid restriction 1800 mL daily (3) HTN (hypertension): Qualifiers: Hypertension type: primary hypertension Qualified Code(s): I10 - Essential (primary) hypertension Code(s): I10 - Essential (primary) hypertension Status: Chronic Assessment and Plan: Patient reports a chronic cough over the last 2 to 3 months I will discontinue her Lisinopril and increase her amlodipine * Continue amlodipine incerased to 10mg and Coreg * discontinued lisinopril * monitor BP per unit protocol (4) Diabetes: Qualifiers: Diabetes mellitus complication status: with hyperglycemia Diabetes mellitus termite control servicer insulin use: without nursing home use Diabetes mellitus type: type 2 Qualified Code(s): E11.65 - Type 2 diabetes mellitus with hyperglycemia Code(s): E11.9 - Type 2 diabetes mellitus without complications Status: Chronic Assessment and Plan: * Hgb A1C 5.8 * Accu checks AC/HS * Low dose SS * Will hold metformin and glimepiride * hypoglycemic protocol in place * Diabetic diet ordered * Dietitian consulted--patient has been noncompliant with a diabetic diet (5) High cholesterol: Code(s): E78.00 - Pure hypercholesterolemia, unspecified Status: Chronic Assessment and Plan: * Continue aspirin and atorvastatin (6) Urinary retention: Code(s): R33.9 - Retention of urine, unspecified Status: Acute Assessment and Plan: Patient had urinary tension on previous hospitalization family reported she continues to have urinary tension at home Tony catheter was placed in the emergency department to which yielded over 1300 mL. Plan for voiding trial tomorrow * Started Flomax * Attempt voiding trials 1-2 days if continued urinary retention may need Urology referral outpatient (7) Pneumonia: Code(s): J18.9 - Pneumonia, unspecified organism Status: Acute Assessment and Plan: Patient was being treated with oral cefdinir and azithromycin outpatient will resume both inpatient to complete her therapy she did however receive 1 dose of Levaquin in the emergency department * continue oral cefdinir and azithromycin Plan Code status: Full code per patient DVT prophylaxis: Lovenox Stress ulcer prophylaxis: Protonix 40 daily PT/OT notes: Pending Disposition: Patient admitted to the medical unit continuous cardiac monitoring for acute respiratory failure with hypoxia secondary to CHF exacerbation will continue with IT diuresis and wean supplemental oxygen 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 Time Spent With Patient Time with patient: 15 - 25 minutes Subjective Date/time seen: 03/16/25 08:59 Interval history: Patient is a 74-year-old female admitted for further evaluation and treatment of acute on chronic systolic heart failure 03/16/2025: Patient reports improvement to her SOB and minimal cough, she has had adequate output. Patient denied any CP, N/V, or dizziness. Currently weaned to RA Review of Systems Review of Systems: All systems reviewed & are unremarkable except as noted in HPI and below Exam Narrative: General: NAD ENT: moist mucous membranes Cardiac: Normal S1 and S2. Respiratory: diminished lower and middle lobes, clear to auscultation on bilateral upper lobes on 2L NC Gastrointestinal: soft normoactive bowel sounds. :Urinary retention tony draining clear yellow urine Extremities: no edema Skin: clean, dry, intact. No wounds or lesions. Neuro: Alert and oriented x4 Psych: normal mood, normal affect, interactive Objective Data Vital Signs Vital Signs: Vital Signs - 24 hr 03/15/25 09:07 03/15/25 09:08 03/15/25 09:11 Temperature 98.1 F Pulse Rate 90 89 Respiratory Rate 16 22 H Blood Pressure 128/69 Pulse Oximetry 95 94 Oxygen Delivery Nasal Cannula Oxygen Flow Rate 2 03/15/25 09:15 03/15/25 09:16 03/15/25 09:30 Temperature Pulse Rate 88 82 88 Respiratory Rate 17 18 25 H Blood Pressure 124/65 124/72 Pulse Oximetry 91 97 92 Oxygen Delivery Oxygen Flow Rate 03/15/25 09:31 03/15/25 09:45 03/15/25 09:46 Temperature Pulse Rate 89 90 85 Respiratory Rate 24 H 22 H 24 H Blood Pressure 127/77 Pulse Oximetry 92 91 90 Oxygen Delivery Nasal Cannula Nasal Cannula Oxygen Flow Rate 2 2 03/15/25 10:00 03/15/25 10:01 03/15/25 10:20 Temperature Pulse Rate 90 88 81 Respiratory Rate 22 H 20 18 Blood Pressure 131/79 Pulse Oximetry 90 93 95 Oxygen Delivery Nasal Cannula Nasal Cannula Oxygen Flow Rate 2 2 03/15/25 10:30 03/15/25 12:00 03/15/25 16:40 Temperature Pulse Rate 81 85 Respiratory Rate Blood Pressure Pulse Oximetry 99 Oxygen Delivery Oxygen Flow Rate 2 03/15/25 16:40 03/15/25 20:00 03/15/25 20:00 Temperature 97.5 F L Pulse Rate 96 88 94 Respiratory Rate 16 16 Blood Pressure 120/65 Pulse Oximetry 99 96 Oxygen Delivery Nasal Cannula Room Air Oxygen Flow Rate 2 03/15/25 20:22 03/16/25 00:00 03/16/25 00:00 Temperature 98.4 F Pulse Rate 88 62 88 Respiratory Rate 16 Blood Pressure 119/67 Pulse Oximetry 95 Oxygen Delivery Room Air Oxygen Flow Rate 03/16/25 04:00 03/16/25 08:00 Temperature Pulse Rate 77 82 Respiratory Rate Blood Pressure Pulse Oximetry Oxygen Delivery Oxygen Flow Rate Intake/Output Intake/Output: Intake & Output 03/13/25 03/14/25 03/15/25 03/16/25 23:59 23:59 23:59 23:59 Intake Total 1655 350 Output Total 3900 573 Balance -7760 -964 Meds/Results Medications: Active Medications Generic Name Dose Route Start Last Admin Trade Name Freq PRN Reason Stop Dose Admin Acetaminophen 650 mg 03/15/25 10:18 03/15/25 20:22 Acetaminophen 325 Mg Tablet PO 650 mg Q4H PRN Administration Mild Pain (1-3) or Fever Hydrocodone Bitart/Acetaminophen 1 tab 03/15/25 10:18 Hydrocodone/Acetaminophen (*Crx) 5-325 Mg Tablet PO Q4H PRN Moderate Pain (4-6) Amlodipine Besylate 10 mg 03/16/25 09:00 Amlodipine Besylate 5 Mg Tablet PO DAILY [facility] Ascorbic Acid 500 mg 03/16/25 09:00 Ascorbic Acid 500 Mg Tablet PO DAILY [facility] Aspirin 81 mg 03/16/25 09:00 Aspirin 81 Mg Enteric Tablet PO DAILY [facility] Atorvastatin Calcium 20 mg 03/15/25 18:00 03/15/25 17:28 Atorvastatin 10 Mg Tablet PO 20 mg QPM [facility] Administration Azithromycin 500 mg 03/16/25 09:00 Azithromycin 250 Mg Tablet PO 03/17/25 09:01 DAILY [facility] Buspirone HCl 10 mg 03/15/25 17:00 03/15/25 17:26 Buspirone Hcl 10 Mg Tablet PO 10 mg BID [facility] Administration Carvedilol 12.5 mg 03/15/25 21:00 03/15/25 20:22 Carvedilol 12.5 Mg Tablet PO 12.5 mg Q12HR [facility] Administration Cefdinir 300 mg 03/15/25 13:20 03/16/25 01:53 Cefdinir 300 Mg Capsule PO 03/19/25 01:21 300 mg Q12H [facility] Administration Dextrose 12.5 gm 03/15/25 10:29 Dextrose 50% 25 Gm/50 Ml Syringe IV PUSH PRN PRN Hypoglycemia Protocol Docusate Sodium 100 mg 03/15/25 21:00 03/15/25 20:22 Docusate Sodium 100 Mg Capsule PO 100 mg Q12HR [facility] Administration Enoxaparin Sodium 40 mg 03/16/25 09:00 Enoxaparin 40 Mg/0.4 Ml Syringe SUB-Q DAILY [facility] Escitalopram Oxalate 10 mg 03/16/25 09:00 Escitalopram Oxalate 10 Mg Tablet PO DAILY [facility] Ferrous Sulfate 325 mg 03/16/25 09:00 Ferrous Sulfate [address] BY MOUTH DAILY [facility] Furosemide 40 mg 03/15/25 17:00 03/15/25 17:26 Furosemide Inj 40 Mg/4 Ml Vial IV PUSH 40 mg BID [facility] Administration Furosemide 20 mg 03/16/25 09:00 Furosemide 20 Mg Tablet PO DAILY [facility] Glucagon 1 mg 03/15/25 10:29 Glucagon For Inj 1 Mg Vial IM PRN PRN Hypoglycemia Protocol Glucose 15 gm 03/15/25 10:29 Glucose Oral Gel 15 Gm Of Glucse In 37.5 Gm Tube PO PRN PRN Hypoglycemia Protocol Dextrose 1,000 mls @ 100 mls/hr 03/15/25 10:29 Dextrose 5% 1,000 Ml IVPB PRN PRN Hypoglycemia Protocol Insulin Human Lispro 2 - 5 units 03/15/25 12:00 03/16/25 08:14 Insulin Human Lispro (*Bkc) 1,000 Units/10 Ml Vial SUB-Q Not Given TIDWM [facility] Protocol Magnesium Oxide 400 mg 03/15/25 17:00 03/15/25 17:26 Magnesium Oxide 400 Mg Tablet PO 400 mg BID [facility] Administration Memantine 5 mg 03/15/25 17:00 03/15/25 17:26 Memantine 5 Mg Tablet PO 5 mg BID [facility] Administration Non-Formulary Medication 200 mg 03/16/25 09:00 Coenzyme Q10 [Co Q-10] PO 04/15/25 08:59 DAILY [facility] Ondansetron HCl 4 mg 03/15/25 10:18 Ondansetron Inj 4 Mg/2 Ml Vial IV PUSH Q6H PRN Nausea And Vomiting Saccharomyces Boulardii 250 mg 03/15/25 17:00 03/15/25 17:26 Saccharomyces Boulardii 250 Mg Capsule PO 250 mg BID [facility] Administration Sodium Chloride 1 gm 03/15/25 17:00 03/15/25 17:26 Sodium Chloride 1 Gm Tablet PO 1 gm BID [facility] Administration Tamsulosin HCl 0.4 mg 03/15/25 13:20 03/15/25 14:22 Tamsulosin Hcl 0.4 Mg Capsule PO 0.4 mg QAM [facility] Administration Radiology Results: ITS Impressions Chest X-Ray 03/15/25 08:43 Impression: Mild pulmonary edema pattern. Chest CTA 03/15/25 09:17 IMPRESSION: 1. No pulmonary embolism. 2. Groundglass appearance in both lungs suggestive of pulmonary edema versus pneumonia. Clinical correlation advised. 3. Bilateral pleural effusion more on the right side ro Labs Labs: Laboratory Results - last 24 hr 03/15/25 03/15/25 03/15/25 08:35 11:37 17:25 POC Capillary Glucose 292 H 302 H Influenza A (RT-PCR) Negative Influenza B (RT-PCR) Negative RSV (RT-PCR) Negative SARS-CoV-2 RNA (RT-PCR) Negative 03/15/25 03/16/25 19:13 07:58 POC Capillary Glucose 261 H 173 H Influenza A (RT-PCR) Influenza B (RT-PCR) RSV (RT-PCR) SARS-CoV-2 RNA (RT-PCR) Quality VTE Prophylaxis VTE prophylaxis: pharmacologic ordered -Patient's previous records reviewed on admission -ER notes reviewed in detail on admission -discussed all findings and current treatment plan with patient/Family/POA -Consultations reviewed for recommendations -Patient's disposition for safe discharge discussed with upper caser Dictation performed by [employer] direct speech recognition software, therefore hepatology physician variants and typographical errors may occur. Hospitalist MIPS Advance Care Plan I have confirmed that the patient's Advanced Care Plan is present, code status is documented, or surrogate decision maker is listed in patient medical record.: Yes Medication Reconciliation I have utilized all available resources to obtain, update and review the patients current medications (includes all prescriptions, OTC, herbals, cannabis, and nutritional supplements).: Yes The patient is not eligible for med reconciliation; the patient is in a emergent medical situation where delaying treatment would jeopardize the patients health.: No
[2025-03-16] MEDS: SACCHAROMYCES BOULARDII 250 MG CAPSULE PO ×2 (09:04→17:36)
[2025-03-16] MEDS: TAMSULOSIN HCL 0.4 MG CAPSULE PO (09:05)
[2025-03-16] MEDS: MAGNESIUM OXIDE 400 MG TABLET PO ×2 (09:05→17:36)
[2025-03-16] MEDS: DOCUSATE SODIUM 100 MG CAPSULE PO ×2 (09:05→20:21)
[2025-03-16] MEDS: ASPIRIN 81 MG ENTERIC TABLET PO (09:05)
[2025-03-16] MEDS: FUROSEMIDE 20 MG TABLET PO (09:05)
[2025-03-16] MEDS: MEMANTINE 5 MG TABLET PO ×2 (09:05→17:36)
[2025-03-16] MEDS: carvediloL 12.5 MG TABLET PO ×2 (09:06→20:21)
[2025-03-16] MEDS: busPIRone HCL 10 MG TABLET PO ×2 (09:07→17:36)
[2025-03-16] MEDS: ASCORBIC ACID 500 MG TABLET PO (09:07)
[2025-03-16] MEDS: AZITHROMYCIN 250 MG TABLET 500 MG PO (09:07)
[2025-03-16] MEDS: ESCITALOPRAM OXALATE 10 MG TABLET PO (09:08)
[2025-03-16] MEDS: SODIUM CHLORIDE 1 GM TABLET PO ×2 (09:08→17:36)
[2025-03-16] MEDS: FERROUS SULFATE 325 MG TABLET DR BY MOUTH (09:08)
[2025-03-16] MEDS: amLODIPine BESYLATE 5 MG TABLET 10 MG PO (09:09)
[2025-03-16] MEDS: ENOXAPARIN 40 MG/0.4 ML SYRINGE SUB-Q (09:10)
[2025-03-16] MEDS: FUROSEMIDE INJ 40 MG/4 ML VIAL IV PUSH ×2 (09:10→17:36)
[2025-03-16 09:22] LABS: Basophils Absolute Auto 0.03 K/mm3 (0.00-0.10); Basophils Percent Auto 0.3 % (0.0-1.0); Eosinophils Absolute Auto 0.01 K/mm3 (0.02-0.50); Eosinophils Percent Auto 0.1 % (1.0-6.0); Hematocrit 33.9 % (35.0-42.0); Hemoglobin 11.1 g/dL (11.7-13.8); Immature Granulocyte Absolute 0.05 K/mm3 (0.00-0.00); Immature Granulocyte Percent A 0.5 % (0.0-0.0); Lymphocytes Absolute Auto 1.62 K/mm3 (1.10-4.50); Lymphocytes Percent Auto 15.6 % (18.0-42.0); Mean Corpuscular HGB Conc 32.7 g/dL (32-36); Mean Corpuscular Hemoglobin 28.5 pg (27.0-31.0); Mean Corpuscular Volume 86.9 fL (78.0-102.0); Mean Platelet Volume 9.2 fl (9.2-11.8); Monocytes Percent Auto 7.7 % (2.0-11.0); Neutrophils Absolute Auto 7.88 K/mm3 (1.70-7.20); Neutrophils Percent Auto 75.8 % (50.0-70.0); Platelet Count Result 325 K/mm3 (150-420); Red Cell Distribution Width 13.7 % (11.6-14.4); White Blood Count 10.4 K/mm3 (4.8-10.8)
[2025-03-16 09:47] LABS: Alanine Aminotransferase 14 U/L (14-59); Albumin Level 3.2 g/dL (3.4-5.0); Alkaline Phosphatase 113 U/L (46-116); Anion Gap 7 mmol/L (4-12); Aspartate Amino Transferase 11 U/L (15-37); Bilirubin,Total 0.5 mg/dL (0.00-1.00); Blood Urea Nitrogen 17 mg/dL (7-18); Calcium 8.7 mg/dL (8.5-10.1); Carbon Dioxide 32 mmol/L (21-32); Chloride 97 mmol/L (98-108); Estimated CRCL calculation 35 ml/min; Estimated Glomerular Filt Rate 46; Glucose 210 mg/dL (70-99); Osmolality Calculated 289 mOsm/kg (285-295); Sodium 136 mmol/L (136-145); Total Protein 6.3 g/dL (6.4-8.2)
[2025-03-16 11:36] LABS: Glucose Point of Care 168 mg/dl (65-105)
[2025-03-16 16:30] LABS: Glucose Point of Care 160 mg/dl (65-105)
[2025-03-16] MEDS: ATORVASTATIN 10 MG TABLET 20 MG PO (17:36)
[2025-03-16 20:21] LABS: Glucose Point of Care 177 mg/dl (65-105)
[2025-03-16] MEDS: MELATONIN 5 MG TABLET PO (20:21)
[2025-03-17] VITALS: BP 114/68; PULSE 78; RESP 18; TEMP 36.4; O2SAT 95
[2025-03-17] MEDS: CEFDINIR 300 MG CAPSULE PO (01:19)
[2025-03-17 04:00] VITALS: PULSE 60
[2025-03-17 05:17] LABS: Basophils Absolute Auto 0.06 K/mm3 (0.00-0.10); Basophils Percent Auto 0.9 % (0.0-1.0); Eosinophils Absolute Auto 0.07 K/mm3 (0.02-0.50); Hematocrit 34.6 % (35.0-42.0); Hemoglobin 11.1 g/dL (11.7-13.8); Immature Granulocyte Absolute 0.02 K/mm3 (0.00-0.00); Immature Granulocyte Percent A 0.3 % (0.0-0.0); Lymphocytes Absolute Auto 1.78 K/mm3 (1.10-4.50); Lymphocytes Percent Auto 25.4 % (18.0-42.0); Mean Corpuscular HGB Conc 32.1 g/dL (32-36); Mean Corpuscular Hemoglobin 28.2 pg (27.0-31.0); Mean Corpuscular Volume 87.8 fL (78.0-102.0); Mean Platelet Volume 9.1 fl (9.2-11.8); Neutrophils Absolute Auto 4.37 K/mm3 (1.70-7.20); Neutrophils Percent Auto 62.4 % (50.0-70.0); Platelet Count Result 300 K/mm3 (150-420); Red Blood Count 3.94 M/mm3 (4.20-5.40); Red Cell Distribution Width 13.8 % (11.6-14.4)
[2025-03-17 05:32] LABS: Alanine Aminotransferase 15 U/L (14-59); Albumin Level 3.2 g/dL (3.4-5.0); Alkaline Phosphatase 104 U/L (46-116); Anion Gap 5 mmol/L (4-12); Aspartate Amino Transferase < 10 U/L (15-37); Bilirubin,Total 0.4 mg/dL (0.00-1.00); Blood Urea Nitrogen 18 mg/dL (7-18); Calcium 8.4 mg/dL (8.5-10.1); Carbon Dioxide 34 mmol/L (21-32); Chloride 100 mmol/L (98-108); Estimated CRCL calculation 40 ml/min; Estimated Glomerular Filt Rate 53; Glucose 147 mg/dL (70-99); Osmolality Calculated 292 mOsm/kg (285-295); Potassium 3.5 mmol/L (3.5-5.1); Sodium 139 mmol/L (136-145)
[2025-03-17 07:46] LABS: Glucose Point of Care 169 mg/dl (65-105)
[2025-03-17 08:00] VITALS: BP 140/79; PULSE 86; PULSE 88; RESP 16; TEMP 36.6; O2SAT 96
[2025-03-17 08:17] LABS: Magnesium 1.9 mg/dL (1.8-2.4)
[2025-03-17] MEDS: ENOXAPARIN 40 MG/0.4 ML SYRINGE SUB-Q (08:49)
[2025-03-17] MEDS: FUROSEMIDE INJ 40 MG/4 ML VIAL IV PUSH (08:50)
[2025-03-17] MEDS: SODIUM CHLORIDE 1 GM TABLET PO (08:53)
[2025-03-17] MEDS: SACCHAROMYCES BOULARDII 250 MG CAPSULE PO (08:53)
[2025-03-17] MEDS: ASCORBIC ACID 500 MG TABLET PO (08:54)
[2025-03-17] MEDS: ASPIRIN 81 MG ENTERIC TABLET PO (08:54)
[2025-03-17] MEDS: AZITHROMYCIN 250 MG TABLET 500 MG PO (08:54)
[2025-03-17] MEDS: ESCITALOPRAM OXALATE 10 MG TABLET PO (08:55)
[2025-03-17] MEDS: busPIRone HCL 10 MG TABLET PO (08:55)
[2025-03-17] MEDS: TAMSULOSIN HCL 0.4 MG CAPSULE PO (08:55)
[2025-03-17] MEDS: MEMANTINE 5 MG TABLET PO (08:55)
[2025-03-17 08:56] VITALS: PULSE 86
[2025-03-17] MEDS: FERROUS SULFATE 325 MG TABLET DR BY MOUTH (08:56)
[2025-03-17] MEDS: carvediloL 12.5 MG TABLET PO (08:56)
[2025-03-17] MEDS: MAGNESIUM OXIDE 400 MG TABLET PO (08:56)
[2025-03-17] MEDS: DOCUSATE SODIUM 100 MG CAPSULE PO (08:58)
[2025-03-17] MEDS: amLODIPine BESYLATE 5 MG TABLET 10 MG PO (08:59)
--- NOTE | 2025-03-17 09:56 | PC.NURSE ---
Patient voided 300 ml of cloudy, strong light yellow urine.
--- NOTE | 2025-03-17 11:00 | P.DS_ITS ---
DS: Admitting Diagnosis Discharge Date 03/17/2025 Admitting Diagnosis acute respiratory failure with hypoxia/ acute on chronic systolic heart failure/ urinary retention DS: Discharge Diagnosis Discharge Diagnosis (1) Acute hypoxemic respiratory failure: Code(s): J96.01 - Acute respiratory failure with hypoxia Status: Acute (2) HFrEF (heart failure with reduced ejection fraction): Code(s): I50.20 - Unspecified systolic (congestive) heart failure Status: Acute (3) HTN (hypertension): Qualifiers: Hypertension type: primary hypertension Qualified Code(s): I10 - Essential (primary) hypertension Code(s): I10 - Essential (primary) hypertension Status: Chronic (4) Diabetes: Qualifiers: Diabetes mellitus complication status: with hyperglycemia Diabetes mellitus alf insulin use: without alf use Diabetes mellitus type: type 2 Qualified Code(s): E11.65 - Type 2 diabetes mellitus with hyperglycemia Code(s): E11.9 - Type 2 diabetes mellitus without complications Status: Chronic (5) High cholesterol: Code(s): E78.00 - Pure hypercholesterolemia, unspecified Status: Chronic (6) Urinary retention: Code(s): R33.9 - Retention of urine, unspecified Status: Acute (7) Pneumonia: Code(s): J18.9 - Pneumonia, unspecified organism Status: Acute Plan Disposition: Discharged to home DS: Summary Hospital Course Reason for hospitalization: acute respiratory failure with hypoxia/ acute on chronic systolic heart failure/ urinary retention Hospital Course: Patient was a 74-year-old female with a significant past medical history of hyperlipidemia, hypertension, depression, type 2 diabetes mellitus, CHF who presented to the hospital with shortness of breath that started last night and developed a cough. Patient was admitted to [facility] and discharged on 03/12/2025 at the time she was treated for CHF exacerbation as well as pneumonia discharged home on azithromycin and cefdinir. she presented to the emergency department today with worsening shortness of breath since discharge reported she did not feel back to baseline even after discharge continued to have shortness a breath. She denies any fevers, chills, nausea, vomiting, diarrhea, abdominal pain, chest pain. She was also recently discharged on 02/06/2025 and was diagnosed with CHF. During that hospitalization she had a cardiac catheterization showed patent coronary arteries. Echo cardiogram reviewed which shown reduced LV systolic function with an estimated EF of 34%, diastolic dysfunction. She was started on Lasix 20mg daily, high-dose statin, and aspirin 81 mg daily. She was then sent home with follow-up recommendation to Cardiology in 4 weeks. All 3 of her daughters were at the bedside and stated that she has been non compliant with her diet and fluid restriction. CXR consistent with pulmonary edema she did have an elevated D-dimer and a CTA was performed that showed no pulmonary embolism but was suggestive of pulmonary edema versus pneumonia will treat for acute exacerbation of heart failure less likely pneumonia since patient was being treated with oral antibiotics outpatient. labs reviewed with elevated BNP 6622 and previous 3 days ago was 6320 and mild leukocytosis likely reactive. patient was then admitted to the medical unit for further evaluation and treatment of acute on chronic CHF exacerbation. Patient family at bedside reporting that she has been having urinary retention, tony was placed in the ED with over 1300 output. Hospital course: Patient started on IV Lasix 40 mg BID for diuresis and indwelling Tony catheter was placed due to urinary retention patient had greater than 1300 mL out after placement of Tony catheter family reported she had not been emptying her bladder fully at home. I did initiated patient on Flomax since she had recently had a Tony catheter placed at [place] with retention there. Patient with excellent urinary output in she was weaned off supplemental oxygen remained on room air at anywhere between 95-98% lungs were clear on auscultation today discharge. Family did report patient will trend up to 3 gait rates daily as well as 3 sodas I recommended discontinuation of the Gatorade could be contributing to CHF exacerbation encouraged a low-sodium diet and to monitor weights at home. Patient seen assist at time of discharge in no acute distress up in chair denied any further shortness of breath or chest pain a did complete a voiding try at which patient voided over 300 mL on own with residual of 38 mL at that time she was instructed to continue to take her Flomax outpatient but did not require an indwelling Tony catheter. Patient was discharged with an increase of her oral Lasix to 40 mg daily and has scheduled follow-up appointment with her rn review. Family member at bedside both them and patient acknowledged and agreed with discharge plan patient was discharged home with family. Status at Discharge Functional status at discharge: uses cane/walker Overall status at discharge: patient is back to baseline Time Spent with Patient Time attestation: Total time spent providing and/or coordinating discharge services: Time spent: Greater than 30 minutes Exam Narrative: General: NAD ENT: moist mucous membranes Cardiac: Normal S1 and S2. Respiratory: diminished lower and middle lobes, clear to auscultation on bilateral upper lobes on 2L NC Gastrointestinal: soft normoactive bowel sounds. :Urinary retention tony draining clear yellow urine Extremities: no edema Skin: clean, dry, intact. No wounds or lesions. Neuro: Alert and oriented x4 Psych: normal mood, normal affect, interactive DS: Data Data Completed and Pending Labs on day of discharge: Labs from last 24 hours 03/17/25 03/17/25 03/17/25 07:40 05:12 05:09 WBC 7.0 RBC 3.94 L Hgb 11.1 L Hct 34.6 L MCV 87.8 MCH 28.2 MCHC 32.1 RDW 13.8 Plt Count 300 MPV 9.1 L Immature Gran % (Auto) 0.3 H Neut % (Auto) 62.4 Lymph % (Auto) 25.4 George % (Auto) 10.0 Eos % (Auto) 1.0 Baso % (Auto) 0.9 Lymph # (Auto) 1.78 George # (Auto) 0.70 Eos # (Auto) 0.07 Baso # (Auto) 0.06 Abs Immat Gran (auto) 0.02 H Absolute Neuts (auto) 4.37 Absolute Nucleated RBC 0.00 Nucleated RBC % 0.0 Sodium 139 Potassium 3.5 Chloride 100 Carbon Dioxide 34 H Anion Gap 5 BUN 18 Creatinine 1.01 Estim Creat Clear Calc 40 Estimated GFR 53 L Glucose 147 H POC Capillary Glucose 169 H Calculated Osmolality 292 Calcium 8.4 L Magnesium 1.9 Total Bilirubin 0.4 AST < 10 L ALT 15 Alkaline Phosphatase 104 Total Protein 6.0 L Albumin 3.2 L 03/16/25 03/16/25 03/16/25 20:16 16:28 11:31 WBC RBC Hgb Hct MCV MCH MCHC RDW Plt Count MPV Immature Gran % (Auto) Neut % (Auto) Lymph % (Auto) George % (Auto) Eos % (Auto) Baso % (Auto) Lymph # (Auto) George # (Auto) Eos # (Auto) Baso # (Auto) Abs Immat Gran (auto) Absolute Neuts (auto) Absolute Nucleated RBC Nucleated RBC % Sodium Potassium Chloride Carbon Dioxide Anion Gap BUN Creatinine Estim Creat Clear Calc Estimated GFR Glucose POC Capillary Glucose 177 H 160 H 168 H Calculated Osmolality Calcium Magnesium Total Bilirubin AST ALT Alkaline Phosphatase Total Protein Albumin Preliminary micro results at discharge 03/15/25 08:01 Blood Culture - Preliminary Blood 03/15/25 08:27 Blood Culture - Preliminary Blood Imaging Radiologist's impression: CTA chest PE protocol Ordering provider: Robert Mart MD History: 74 years Female with . dyspnea with elevated D-dimer,CP . Comparison: None. Technique: CT angiogram chest was performed following timed intravenous injection of contrast. Thin slice axial images and reformatted coronal images were obtained. Three dimensional reformatted images of the chest were also obtained using a [employer] workstation. . Automated exposure control and iterative reconstruction technique were employed. The dose-length product was 334.11 mGy- cm. 100 mL Omnipaque 350 was given IV. Radiation Findings: PULMONARY ARTERIES: No pulmonary embolus. VISUALIZED THORACIC INLET: Small left thyroid nodule. Ultrasound evaluation advised. Otherwise, Normal. MEDIASTINUM: Aorta/coronary arteries: Mild atheromatous disease. Heart/other: The heart is not enlarged. Lymph nodes: No mediastinal or hilar adenopathy. LUNGS: Bilateral pleural effusion more on the right side with adjacent atelectasis. Bilateral groundglass appearance suggestive of pneumonia versus edema. RDS is not excluded. No pulmonary nodules or masses. No pneumothorax. VISUALIZED UPPER ABDOMEN: Slightly prominent left adrenal gland small adenoma. Otherwise, the visualized upper abdomen is normal. MUSCULOSKELETAL: Soft tissues: The superficial soft tissues are normal. Bones: Age appropriate degenerative changes of the spine. IMPRESSION: 1. No pulmonary embolism. 2. Groundglass appearance in both lungs suggestive of pulmonary edema versus pneumonia. Clinical correlation advised. 3. Bilateral pleural effusion more on the right side ro Discharge Plan Discharge Attending physician on discharge: Vasu Pittman Discharging Clinician: Cathy Allen Anticipated Discharge Date/Time: 03/17/25 10:49 Patient Disposition: Home Activity: as tolerated Diet: heart healthy and low sodium Discharge Instructions: Congestive heart Failure * I have increased your Lasix to 40mg daily from 20mg daily if you start having shortness of breath you may take an extra dose of Lasix * Weekly weights report 3-5 pound weight gain * recommended low sodium diet * Continue with fluid restriction 1800ML daily Urinary retention: * I have prescribed Tamsulosin please take as prescribed * May follow-up with urology out patient if symptoms return You may complete your Cefdinir PO 4 doses left to complete therapy for pneumonia How can you care for yourself at home? ? Keep track of any new symptoms or changes in your symptoms. ? Rest until you feel better. ? Be safe with medicines. Take your medicines exactly as prescribed. Call your doctor if you think you are having a problem with your medicine. ? Do not drive after taking a prescription pain medicine. ? Ensure to follow-up with primary care physician as indicated and provide updated medication list provided to you at discharge. When should you call for help? Call 911 anytime you think you may need emergency care. For example, call if: ? You passed out (lost consciousness). Call your doctor now or seek immediate medical care if: ? You have new symptoms like fever, difficulty breathing, Chest pain, vomiting, or rash. ? You have new or different pain. ? You are confused and are having trouble thinking clearly. ? Your symptoms are getting worse. Watch closely for changes in your health, and be sure to contact your doctor if: ? You do not get better as expected. Patient Instructions: Antibiotic Form, Tamsulosin (By mouth), Melatonin (By mouth), Heart Failure (DC), Pulmonary Edema (DC), Low-Sodium Diet (DC), How to Change a Catheter Drainage Bag (DC) Patient Language: Ivorian Stand Alone Forms: General Discharge Information Follow-up/Referrals: Nona Núñez MD [Primary Care Provider] - 2 weeks Jose Pittman MD [Physician] - Keep Reg. Scheduled Appt. Lei Seymour MD [Physician] - Call for Appointment Discharge Medications: New melatonin 5 mg Tablet 5 mg PO HS Qty: 30 0RF Rx Instructions: OTC tamsulosin 0.4 mg Capsule 0.4 mg PO QAM Qty: 30 0RF furosemide 40 mg tablet 40 mg PO DAILY Qty: 30 0RF Continued escitalopram oxalate 10 mg tablet 10 mg PO DAILY buspirone 10 mg tablet 10 mg PO BID glimepiride 1 mg tablet 1 mg PO DAILY memantine 5 mg tablet 5 mg PO BID cefdinir 300 mg capsule 300 mg PO Q12H Qty: 4 0RF Rx Instructions: Take last 4 doses metformin 500 mg tablet 500 mg PO BID (DME) lancets [Accu-Chek Softclix Lancets] Misc See Rx Instructions .ROUTE .MEDSUPPLY Qty: 50 Rx Instructions: As directed (DME) Accu-Chek Guide test strips Strip See Rx Instructions .ROUTE .MEDSUPPLY Qty: 10 Rx Instructions: As directed (DME) blood-glucose meter [Accu-Chek Guide Me Glucose Mtr] Misc See Rx Instructions .ROUTE .MEDSUPPLY Qty: 1 Rx Instructions: As directed atorvastatin 40 mg tablet 20 mg PO QPM Saccharomyces boulardii [Florastor] 250 mg capsule 250 mg PO BID Qty: 30 0RF coenzyme Q10 [Co Q-10] 100 mg capsule 200 mg PO DAILY ascorbic acid (vitamin C) [Vitamin C] 500 mg tablet 500 mg PO DAILY ferrous sulfate 325 mg (65 mg iron) tablet 65 mg PO DAILY magnesium 200 mg tablet 400 mg PO BID carvedilol [Coreg] 12.5 mg Tablet 12.5 mg PO Q12HR Qty: 60 0RF docusate sodium 100 mg Capsule 100 mg PO Q12HR Qty: 60 0RF aspirin [Vish Low Dose Aspirin] 81 mg tablet,delayed release (DR/EC) 81 mg PO DAILY Qty: 60 0RF sodium chloride 1,000 mg tablet,soluble 1,000 mg PO BID Qty: 60 0RF Changed amlodipine 10 mg tablet 10 mg PO DAILY Qty: 30 0RF Discontinued lisinopril 20 mg tablet 20 mg PO DAILY azithromycin [Zithromax] 250 mg Tablet 500 mg PO DAILY Qty: 6 0RF furosemide [Lasix] 20 mg tablet 20 mg PO DAILY Qty: 60 0RF Date of admission: 03/15/25 09:56 Primary Care Provider: Nona Núñez Admitting Provider: Justin Sharp Attending physician on admission: Cathy Allen Condition: Stable Quality VTE Prophylaxis VTE prophylaxis: pharmacologic ordered -Patient's previous records reviewed on admission -ER notes reviewed in detail on admission -discussed all findings and current treatment plan with patient/Family/POA -Consultations reviewed for recommendations -Patient's disposition for safe discharge discussed with case manager specialist Dictation performed by [employer] direct speech recognition software, therefore car rental deliverer variants and typographical errors may occur. Hospitalist MIPS Heart Failure (Exclusion) Patient has history of Heart Transplant or Left Ventricular Assistive Device?: No IF YES, STOP HERE Heart Failure (Qualifier) Patient has current or prior documentation of LVEF less than or equal to 40%, or mod/servere depressed LVSF?: Yes IF NO, STOP HERE If Yes, Heart Failure (Qualifier) Patient was prescribed or already taking an Angiotensin-Converting Enzyme (MARY) Inhibitor, or Antiotensin Receptor Vidya (ARB): No Patient was prescribed or already taking bisoprolol, carvedilol, or sustained release metoprolol succinate: Yes If Medications not prescribed/taking Reason patient not prescribed/taking MARY or ARB: Medical reasons: allergy, intolerance, contraindication or other
[2025-03-17 11:42] LABS: Glucose Point of Care 161 mg/dl (65-105)
--- NOTE | 2025-03-17 13:10 | PC.NURSE ---
Discharge instructions given to patient and patient's daughter. Both voiced understanding. Personal items collected and sent home with patient. Patient left unit in w/c accompanied by program writer and patient's daughter. Patient left hospital grounds in privately owned vehicle.
--- NOTE | 2025-03-20 09:09 | PC.NURSE ---
Called, unable to leave VM. Message on recorder states, The wireless customer you are trying to reach is unavailable, try again later.
== END 2025-03-17 13:10 | disposition home or self-care (01) ==
LOC: CHSED 09:56 → CHS2ND 10:14
PROVIDERS: Admitting Provider Internal Medicine; Emergency Provider Emergency Medicine; PCP Internal Medicine; Visit Provider Nurse Practitioner Family
DX: J96.01 Acute respiratory failure with hypoxia (principal); I11.0 Hypertensive heart disease with heart failure; I50.23 Acute on chronic systolic (congestive) heart failure; J18.9 Pneumonia, unspecified organism; R33.9 Retention of urine, unspecified; E11.65 Type 2 diabetes mellitus with hyperglycemia; E78.00 Pure hypercholesterolemia, unspecified; F32.A Depression, unspecified; Z20.822 Contact with and (suspected) exposure to COVID-19; Z90.49 Acquired absence of other specified parts of digestive tract; Z90.710 Acquired absence of both cervix and uterus; Z79.84 Long term (current) use of oral hypoglycemic drugs; Z79.899 Other long term (current) drug therapy
CPT/HCPCS: 36415; 71045; 71275; 80053; 81003; 82948; 83605; 83735; 83880; 84484; 85025; 85380; 85610; 85730; 87040; 87637; 93005; 96365; 96372; 96375; 97161; 97165; 97530; 99285; A9270; G0378; J1650; J1815; J1938; J1956; Q9967